=== PATIENT | female | born 1950 | race Caucasian/White ===

== ENCOUNTER → 2023-06-15 10:28 | Outpatient (REF) | payer MEDICARE, OTHER, SELFPAY ==
[2023-06-15 11:14] LABS: % Basophils 0.6 % (0-2); % Eosinophils 3.4 % (0-6); % Immature Granulocytes 1.2 % (0-0.5); % Monocytes 9.9 % (1.7-9.3); % Neutrophils 54.9 % (42.2-75.2); Absolute Eosinophils 0.2 10^3/uL (0-0.7); Absolute Immature Granulocytes 0.1 10^3/uL (0-0.05); Absolute Monocytes 0.7 10^3/uL (0.1-0.6); Absolute Neutrophils 3.7 10^3/uL (1.4-6.5); Hematocrit 41.6 % (37.0-47.0); Hemoglobin 13.9 g/dL (12.0-16.0); Mean Corp Hgb Conc. 33.4 g/dL (33.0-37.0); Mean Corpuscular Volume 95.6 fL (81.0-99.0); Mean Platelet Volume 9.2 fL (7.4-10.4); Nucleated Red Blood Cells % 0 %; Platelet Count 212 10^3/uL (130-400); Red Blood Cell Count 4.35 10^6/uL (4.20-5.40); Red Cell Dist. Width 12.9 % (11.5-14.5); White Blood Cell Count 6.8 10^3/uL (4.8-10.8)
[2023-06-15 12:13] LABS: Glycohemoglobin (HgbA1c) 7.1 % (4.0-5.6)
[2023-06-15 12:14] LABS: ALT (SGPT) 24 U/L (0-35); AST (SGOT) 37 U/L (14-36); Albumin 4.3 g/dl (3.5-5.0); Alkaline Phosphatase 114 U/L (38-126); Blood Urea Nitrogen 20 mg/dl (7-17); Calcium 9.6 mg/dl (8.4-10.2); Carbon Dioxide 28 mmol/L (22-30); Chloride 102 mmol/L (98-107); Glucose 98 mg/dl (70-99); HDL Cholesterol 55 mg/dl; LDL Cholesterol, Calculated 45 mg/dl; Potassium 4.5 mmol/L (3.5-5.1); Sodium 135 mmol/L (135-145); Total Bilirubin 0.7 mg/dl (0.2-1.3); Total Cholesterol 140 mg/dl (50-199); Total Protein 7.2 g/dl (6.3-8.2); Triglyceride 202 mg/dl (10-149); Very Low Density Lipoprotein 40 mg/dl (0-30); eGFR > 60.00
== END ==
LOC: REG 10:28
PROVIDERS: ATTENDING PHYSICIAN Physician Assistant; FAMILY PHYSICIAN Family Medicine
DX: E11.65 Type 2 diabetes mellitus with hyperglycemia (principal)
CPT/HCPCS: 36415; 80053; 80061; 83036; 85025

== ENCOUNTER → 2023-10-10 08:36 | Outpatient (REF) | payer MEDICARE, OTHER, SELFPAY ==
[2023-10-10 09:21] LABS: % Basophils 0.4 % (0-2); % Eosinophils 2.6 % (0-6); % Immature Granulocytes 0.6 % (0-0.5); % Lymphocytes 26.3 % (20.5-51.1); % Monocytes 7.2 % (1.7-9.3); % Neutrophils 62.9 % (42.2-75.2); Absolute Eosinophils 0.2 10^3/uL (0-0.7); Absolute Immature Granulocytes 0.1 10^3/uL (0-0.05); Absolute Lymphocytes 2.1 10^3/uL (1.2-3.4); Absolute Monocytes 0.6 10^3/uL (0.1-0.6); Absolute Neutrophils 5.1 10^3/uL (1.4-6.5); Hematocrit 44.1 % (37.0-47.0); Mean Corpuscular Hgb 31.3 pg (27.0-31.0); Mean Corpuscular Volume 91.9 fL (81.0-99.0); Mean Platelet Volume 9.2 fL (7.4-10.4); Nucleated Red Blood Cells % 0 %; Platelet Count 222 10^3/uL (130-400); Red Cell Dist. Width 13.6 % (11.5-14.5)
[2023-10-10 09:42] LABS: Glycohemoglobin (HgbA1c) 6.8 % (4.0-5.6)
[2023-10-10 09:51] LABS: ALT (SGPT) 27 U/L (0-35); AST (SGOT) 30 U/L (14-36); Albumin 4.3 g/dl (3.5-5.0); Alkaline Phosphatase 104 U/L (38-126); Blood Urea Nitrogen 20 mg/dl (7-17); Calcium 9.7 mg/dl (8.4-10.2); Carbon Dioxide 25 mmol/L (22-30); Chloride 101 mmol/L (98-107); Glucose 105 mg/dl (70-99); HDL Cholesterol 66 mg/dl; LDL Cholesterol, Calculated 64 mg/dl; Potassium 4.5 mmol/L (3.5-5.1); Sodium 139 mmol/L (135-145); Total Bilirubin 0.7 mg/dl (0.2-1.3); Total Cholesterol 159 mg/dl (50-199); Total Protein 7.3 g/dl (6.3-8.2); Triglyceride 146 mg/dl (10-149); Very Low Density Lipoprotein 29 mg/dl (0-30); eGFR > 60.00
== END ==
LOC: REG 08:36
PROVIDERS: ATTENDING PHYSICIAN Physician Assistant; FAMILY PHYSICIAN Family Medicine
DX: E11.65 Type 2 diabetes mellitus with hyperglycemia (principal)
CPT/HCPCS: 36415; 80053; 80061; 83036; 85025

== ENCOUNTER → 2023-10-31 12:04 | Outpatient (REF) | payer MEDICARE, OTHER, SELFPAY | LOC: RAD 12:04 | PROVIDERS: ATTENDING PHYSICIAN Family Medicine | DX: R05.1 Acute cough (principal); R06.2 Wheezing | CPT/HCPCS: 71046 ==

== ENCOUNTER 2024-02-08 13:17 | Emergency (ER) | payer MEDICARE, OTHER, SELFPAY ==
[2024-02-08 13:20] VITALS: BP 179/89
--- NOTE | 2024-02-08 13:20 | ED.GENMED ---
ED Provider Triage
<Melly Myers PA-C - Last Filed: 02/08/24 17:21>
-
Patient seen by provider in Triage?: Seen in Triage
Attestation: A medical screening examination has been initiated by a qualified medical provider. Based on the assessment performed at this time, it has been determined that an emergent medical condition may exist and the patient has been informed
that further medical evaluation and possible additional diagnostic testing may be needed.
HPI: 73yoF here with SOB x 1 week. Also feels like her glands are swollen. Sent here by PCP.
GENERAL: Alert , in no apparent distress
EYE: No visual abnormalities.
NECK: Trachea midline
ENT: No visible abnormalities.
LUNGS: No acute respiratory distress
NEUROLOGICAL: Alert and oriented
SKIN: Skin intact. No visible changes.
MUSCULOSKELETAL: Moving extremities normally
PSYCH: Normal and appropriate interaction.
This is a medical evaluation conducted in person to initiate diagnostic evaluation and provide initial therapeutics. Please see further documentation by the treating clinician.
Oxygen saturation 96% in triage. Cardiac labs, EKG, and CXR ordered.
History of Present Illness
<Melly Myers PA-C - Last Filed: 02/08/24 17:21>
General
Chief Complaint: Breathing Problem
Time Seen by Provider: 02/08/24 15:52
<Bailee Clinton NP - Last Filed: 02/08/24 23:20>
General
Source: patient
Exam Limitations: none
Nursing documentation reviewed up to this point in time: agreed with
History of Present Illness
History of Present Illness:
Patient to ED with complaint of SOB, sensation of throat swlling. Symptoms started 1 week ago. Denies fever/chills, recent illness. Sent to ED by PCP for eval. Denies any cp/pressure. NO cough
Past History
<Melly Myers PA-C - Last Filed: 02/08/24 17:21>
Past History
ED Past Medical History: HTN, Hypercholesterolemia, NIDDM, Psychiatric (Anxiety/depression) and Other (Is post recent knee replacement, hypertension, diabetes)
ED Past Surgical History: Cholecystectomy, Gynecological, Orthopedic and Other (Hernia repair)
Social History
Tobacco: Non-smoker
Alcohol: None
Drug: None
Personal:
Living: with family
Employment: Employed
Family History
Family History: Diabetes
Phy Exam
<Bailee Clinton NP - Last Filed: 02/08/24 23:20>
General Physical Exam
General Presentation: mild distress
General age: appears stated age
General Skin: warm and dry
General Habitus: normal
General Mental: alert
ENT Exam
ENT Exam: EOMI, pharynx normal, normocephalic and lymphnodes (enlarged firm right cervical node)
Cardiovascular Exam
Cardiovascular Exam: regular rate/rhythm and no edema
Pulmonary Exam
Pulmonary Exam: lungs clear, no respiratory distress, chest non tender and no stridor
Gastrointestinal Exam
Gastrointestinal Exam: non tender and soft
Musculoskeletal Exam
Musculoskeletal Exam: full ROM and neuro vasc intact
Skin Exam
Skin Exam: normal color, warm/dry and no rash
Psychiatric Exam
Psychiatric Exam: normal mood/affect
Scores
<Bailee Clinton NP - Last Filed: 02/08/24 23:20>
Heart Failure Risk
Heart Failure Risk Score: Not Applicable
Course
<Melly Myers PA-C - Last Filed: 02/08/24 17:21>
Orders/Labs/Results
Orders:
Orders
02/08/24 13:24
Electrocardiogram (*1) Urgent
Reason for Study: Shortness of Breath
EKG- Treatment ONCE
CR Chest - 2 Views Urgent
Comment:
Reason For Exam: SOB
02/08/24 13:33
Complete Blood Count/With Diff Urgent
Comprehensive Metabolic Panel Urgent
NT-proBNP Urgent
Troponin I Urgent
02/08/24 16:[address]
Neck [address] Contrast [address] [CT Neck With Iv Contrast] Urgent
Comment:
Reason For Exam: throat swelling, difficulty swallowing
02/08/24 16:04
Dexamethasone Pf [Decadron] 10 mg PO NOW STA
02/08/24 17:46
Amoxicillin 875 mg/Clav 125 mg [Augmentin 875 mg/125 mg] 1 tablet PO NOW STA
02/08/24 18:00
Fluconazole [Diflucan] 150 mg PO NOW STA
02/08/24 18:39
Rapid Strep Group A Urgent
KYLE Source: Throat/Pharynx
Specimen Description:
Date Specimen was Collected: 02/08/24
Time Specimen was Collected: 18:38
Abnormal Lab Results
02/08/24
13:33
MCH 31.4 H pg
(27.0-31.0)
Absolute Monos (auto) 0.7 H 10^3/uL
(0.1-0.6)
Immature Gran % 0.6 H %
(0-0.5)
Monocytes % 9.6 H %
(1.7-9.3)
Glucose 143 H mg/dl
(70-99)
AST 46 H U/L
(14-36)
02/08/24 13:33
02/08/24 13:33
Vital Signs
Initial and Last Documented VS:
Initial Vital Signs
Temp Pulse Resp BP Pulse Ox
98.5 F 63 20 179/89 96
02/08/24 13:20 02/08/24 13:20 02/08/24 13:20 02/08/24 13:20 02/08/24 13:20
Last Documented Vital Signs
Temp Pulse Resp BP Pulse Ox
98.5 F 55 17 138/84 96
02/08/24 13:20 02/08/24 18:00 02/08/24 18:00 02/08/24 16:13 02/08/24 16:27
<Bailee Clinton NP - Last Filed: 02/08/24 23:20>
Orders/Labs/Results
Orders:
Orders
02/08/24 13:24
Electrocardiogram (*1) Urgent
Reason for Study: Shortness of Breath
EKG- Treatment ONCE
CR Chest - 2 Views Urgent
Comment:
Reason For Exam: SOB
02/08/24 13:33
Complete Blood Count/With Diff Urgent
Comprehensive Metabolic Panel Urgent
NT-proBNP Urgent
Troponin I Urgent
02/08/24 16:01
Neck [address] Contrast CT [CT Neck With Iv Contrast] Urgent
Comment:
Reason For Exam: throat swelling, difficulty swallowing
02/08/24 16:04
Dexamethasone Pf [Decadron] 10 mg PO NOW STA
02/08/24 17:46
Amoxicillin 875 mg/Clav 125 mg [Augmentin 875 mg/125 mg] 1 tablet PO NOW STA
02/08/24 18:00
Fluconazole [Diflucan] 150 mg PO NOW STA
02/08/24 18:39
Rapid Strep Group A Urgent
KYLE Source: Throat/Pharynx
Specimen Description:
Date Specimen was Collected: 02/08/24
Time Specimen was Collected: 18:38
Abnormal Lab Results
02/08/24
13:33
MCH 31.4 H pg
(27.0-31.0)
Absolute Monos (auto) 0.7 H 10^3/uL
(0.1-0.6)
Immature Gran % 0.6 H %
(0-0.5)
Monocytes % 9.6 H %
(1.7-9.3)
Glucose 143 H mg/dl
(70-99)
AST 46 H U/L
(14-36)
02/08/24 13:33
02/08/24 13:33
Vital Signs
Initial and Last Documented VS:
Initial Vital Signs
Temp Pulse Resp BP Pulse Ox
98.5 F 63 20 179/89 96
02/08/24 13:20 02/08/24 13:20 02/08/24 13:20 02/08/24 13:20 02/08/24 13:20
Last Documented Vital Signs
Temp Pulse Resp BP Pulse Ox
98.5 F 55 17 138/84 96
02/08/24 13:20 02/08/24 18:00 02/08/24 18:00 02/08/24 16:13 02/08/24 16:27
<Shahbaz Chan, DO - Last Filed: 02/08/24 17:45>
Orders/Labs/Results
Orders:
Orders
02/08/24 13:24
Electrocardiogram (*1) Urgent
Reason for Study: Shortness of Breath
EKG- Treatment ONCE
CR Chest - 2 Views Urgent
Comment:
Reason For Exam: SOB
02/08/24 13:33
Complete Blood Count/With Diff Urgent
Comprehensive Metabolic Panel Urgent
NT-proBNP Urgent
Troponin I Urgent
02/08/24 16:01
Neck [address] Contrast CT [CT Neck With Iv Contrast] Urgent
Comment:
Reason For Exam: throat swelling, difficulty swallowing
02/08/24 16:04
Dexamethasone Pf [Decadron] 10 mg PO NOW STA
02/08/24 17:46
Amoxicillin 875 mg/Clav 125 mg [Augmentin 875 mg/125 mg] 1 tablet PO NOW STA
02/08/24 18:00
Fluconazole [Diflucan] 150 mg PO NOW STA
02/08/24 18:39
Rapid Strep Group A Urgent
KYLE Source: Throat/Pharynx
Specimen Description:
Date Specimen was Collected: 02/08/24
Time Specimen was Collected: 18:38
Abnormal Lab Results
02/08/24
13:33
MCH 31.4 H pg
(27.0-31.0)
Absolute Monos (auto) 0.7 H 10^3/uL
(0.1-0.6)
Immature Gran % 0.6 H %
(0-0.5)
Monocytes % 9.6 H %
(1.7-9.3)
Glucose 143 H mg/dl
(70-99)
AST 46 H U/L
(14-36)
02/08/24 13:33
02/08/24 13:33
Vital Signs
Initial and Last Documented VS:
Initial Vital Signs
Temp Pulse Resp BP Pulse Ox
98.5 F 63 20 179/89 96
02/08/24 13:20 02/08/24 13:20 02/08/24 13:20 02/08/24 13:20 02/08/24 13:20
Last Documented Vital Signs
Temp Pulse Resp BP Pulse Ox
98.5 F 55 17 138/84 96
02/08/24 13:20 02/08/24 18:00 02/08/24 18:00 02/08/24 16:13 02/08/24 16:27
Harveylt;Bailee Clinton NP - Last Filed: 02/08/24 23:20>
MDM/Problems Addressed
Differential Diagnosis Includes:
Patient to ED wtih complaint of sensation of swelling her throat. Denies fever/chills, pain. States she was seen by ENT a few weeks ago with fullness to ears. Tube placed in right ear. Now comlaining of swelling to neck. CT confirms bilateral
tonsillitis, narrowing or oropharygeal airway. Dr. Keller notified via tiger text. Plan to start antibiotic in ED, continue with oral steroid and discharge home. SHe will be seen in ENT office in AM. Patient remains awake and alert, afebrile.
LCTA, no stridor. Handling secretions well. SHe was given instructions on s/s to return to ED and she is agreeable to plan.
<Bailee Clinton NP - Last Filed: 02/08/24 23:20>
*Critical Care Note
Total Time (30-74mins, 75-104mins- exclusive of procedures): Not Applicable
ED Attending Note
<Melly Myers PA-C - Last Filed: 02/08/24 17:21>
-
Portions of this chart may have been created with voice recognition software.� Occasional wrong word or��sound alike� substitutions may have occurred due to the inherent limitations of voice recognition software.
<Shahbaz Chan DO - Last Filed: 02/08/24 17:45>
ED Attending Note
Patient seen and examined by attending physician: Yes
I performed the substantive portion of visit, reviewed & personally made and approve the management plan that is documented in note by myself or ANKIT.: Yes
ED Attending Note:
Seen with [employer] examined independently bilateral sore throat from swallowing recent mandibular node underwent what sounds like tympanic tube from Dr. Casarez in a few weeks ago CT noted no stridor will discharge on steroids and Amoxil follow-up ENT or
PCP
Discharge Plan
Departure
Patient Disposition: Home (Routine Discharge)
Date of Disposition: 02/08/24
Time of Disposition: 17:47
Patient with high blood pressure during this ER visit?: No
Condition: Good
Covid-19: Not Applicable
Discharge Problem:
Acute tonsillitis
Instructions: Sore throat in adults
Prescriptions:
New
amoxicillin-pot clavulanate 875-125 mg tablet
1 tab PO BID Qty: 19 0RF
prednisone 10 mg Tablet
See Rx Instructions .ROUTE .COMPLEX Qty: 30 0RF
Rx Instructions:
Take By Mouth:
40 mg daily x3 days, 30 mg daily x3 days,
20 mg daily x3 days, 10 mg daily x3 days.
No Action
lidocaine 1 PATCH adhesive patch,medicated
1 patch topical Q12H Qty: 0
Patient Comments:
applies to b/l feet for neuropathy.
metoprolol succinate 50 MG tablet extended release 24 hr
50 mg PO DAILY
Levemir FlexTouch U100 Insulin 300 UNIT/3 ML insulin pen
50 unit SC HS
ascorbic acid (vitamin C) 500 MG capsule
500 mg PO DAILY
Zinc Chelate 100 MG tablet
100 mg PO DAILY
Vitamin B12
1 tab PO DAILY
Vitamin D3:
2,000 units PO DAILY
[id number]-jjlghqfumautd-kbvi 1 TAB tablet
1 tab PO Q4HPRN PRN (Reason: headache)
glipizide 5 MG tablet extended release 24hr
10 mg PO TID
acetaminophen 325 MG tablet
650 mg PO BIDPRN PRN (Reason: pain)
amlodipine 5 MG tablet
5 mg PO DAILY
Entresto 1 TAB tablet
1 tab PO BID
multivitamin Tablet
1 tab PO DAILY
alprazolam 0.5 mg Tablet
0.5 mg PO PRN PRN (Reason: anxiety)
oxycodone-acetaminophen 10-325 mg Tablet
1 tab PO HSPRN PRN (Reason: pain)
omeprazole magnesium [Prilosec OTC] 20 mg Tablet,Delayed Release (Dr/Ec)
40 mg PO DAILY
pregabalin [Lyrica] 100 mg Capsule
100 mg PO TID
amoxicillin-pot clavulanate 875-125 mg tablet
1 tab PO BID Qty: 19 0RF
Referrals:
Dennis Keller MD [Active] - Tomorrow
Joanna Bal MD [Family Provider] -
Interventions
Interventions:
*Risk Screen - Suicide Last Done: 02/08/24 13:24
*General Assessment Last Done: 02/08/24 13:24
*Neglect/Abuse Screening Last Done: 02/08/24 13:24
ED- Fall Risk Assessment Last Done: 02/08/24 16:27
*ED COVID-19 Vaccine History Last Done: 02/08/24 13:24
*Nursing Disposition Last Done: 02/08/24 18:18
ED- Cardiac Assessment Last Done: 02/08/24 16:27
ED- Pulmonary Assessment Last Done: 02/08/24 16:27
Discharge Date and Time
Discharge Date/Time: 02/08/24 18:19
Print Language: CROATIAN
[2024-02-08 13:56] LABS: % Basophils 0.6 % (0-2); % Eosinophils 3.5 % (0-6); % Immature Granulocytes 0.6 % (0-0.5); % Lymphocytes 31.6 % (20.5-51.1); % Monocytes 9.6 % (1.7-9.3); % Neutrophils 54.1 % (42.2-75.2); Absolute Eosinophils 0.2 10^3/uL (0-0.7); Absolute Lymphocytes 2.1 10^3/uL (1.2-3.4); Absolute Monocytes 0.7 10^3/uL (0.1-0.6); Absolute Neutrophils 3.7 10^3/uL (1.4-6.5); Hematocrit 40.4 % (37.0-47.0); Hemoglobin 13.8 g/dL (12.0-16.0); Mean Corp Hgb Conc. 34.2 g/dL (33.0-37.0); Mean Corpuscular Hgb 31.4 pg (27.0-31.0); Mean Platelet Volume 9.1 fL (7.4-10.4); Nucleated Red Blood Cells % 0 %; Platelet Count 202 10^3/uL (130-400); Red Blood Cell Count 4.39 10^6/uL (4.20-5.40); Red Cell Dist. Width 12.9 % (11.5-14.5); White Blood Cell Count 6.8 10^3/uL (4.8-10.8)
[2024-02-08 14:05] LABS: ALT (SGPT) 35 U/L (0-35); AST (SGOT) 46 U/L (14-36); Albumin 4.1 g/dl (3.5-5.0); Alkaline Phosphatase 94 U/L (38-126); Blood Urea Nitrogen 15 mg/dl (7-17); Calcium 9.4 mg/dl (8.4-10.2); Carbon Dioxide 28 mmol/L (22-30); Chloride 101 mmol/L (98-107); Glucose 143 mg/dl (70-99); Potassium 3.9 mmol/L (3.5-5.1); Sodium 139 mmol/L (135-145); Total Bilirubin 0.4 mg/dl (0.2-1.3); Total Protein 6.6 g/dl (6.3-8.2); eGFR > 60.00
[2024-02-08 14:17] LABS: NT-proBNP 884 pg/ml; Troponin I 0.013 ng/ml
[2024-02-08 16:13] VITALS: BP 138/84
[2024-02-08 16:26] VITALS: BMI 43.7
[2024-02-08] MEDS: DECADRON 10 MG PO (16:31)
[2024-02-08] MEDS: AUGMENTIN 875 MG/125 MG 1 TABLET PO (17:55)
[2024-02-08] MEDS: DIFLUCAN 150 MG PO (18:12)
== END 2024-02-08 18:19 | disposition home or self-care (01) ==
LOC: EMR 13:17
PROVIDERS: Physician Assistant; EMERGENCY PHYSICIAN Emergency Medicine; FAMILY PHYSICIAN Family Medicine
DX: J03.90 Acute tonsillitis, unspecified (principal)
CPT/HCPCS: 99285; 70491; 71046; 80053; 83880; 84484; 85025; 87070; 87880; 93005; Q9967

== ENCOUNTER → 2024-02-10 10:02 | Outpatient (REF) | payer MEDICARE, OTHER, SELFPAY | LOC: RAD 10:02 | PROVIDERS: ATTENDING PHYSICIAN Specialist; FAMILY PHYSICIAN Family Medicine | DX: M25.512 Pain in left shoulder (principal) | CPT/HCPCS: 73200 ==

== ENCOUNTER → 2024-02-13 09:38 | Outpatient (REF) | payer MEDICARE, OTHER, SELFPAY ==
[2024-02-13 11:23] LABS: % Basophils 0.2 % (0-2); % Eosinophils 1.9 % (0-6); % Immature Granulocytes 1.2 % (0-0.5); % Lymphocytes 33.2 % (20.5-51.1); % Monocytes 10.2 % (1.7-9.3); % Neutrophils 53.3 % (42.2-75.2); Absolute Eosinophils 0.2 10^3/uL (0-0.7); Absolute Immature Granulocytes 0.1 10^3/uL (0-0.05); Absolute Lymphocytes 3.3 10^3/uL (1.2-3.4); Absolute Neutrophils 5.3 10^3/uL (1.4-6.5); Hematocrit 43.9 % (37.0-47.0); Mean Corp Hgb Conc. 34.2 g/dL (33.0-37.0); Mean Corpuscular Hgb 31.7 pg (27.0-31.0); Mean Corpuscular Volume 92.8 fL (81.0-99.0); Mean Platelet Volume 9.5 fL (7.4-10.4); Nucleated Red Blood Cells % 0 %; Platelet Count 234 10^3/uL (130-400); Red Blood Cell Count 4.73 10^6/uL (4.20-5.40); Red Cell Dist. Width 12.9 % (11.5-14.5)
[2024-02-13 12:02] LABS: ALT (SGPT) 41 U/L (0-35); AST (SGOT) 37 U/L (14-36); Albumin 4.4 g/dl (3.5-5.0); Alkaline Phosphatase 102 U/L (38-126); Blood Urea Nitrogen 21 mg/dl (7-17); Calcium 9.7 mg/dl (8.4-10.2); Carbon Dioxide 29 mmol/L (22-30); Chloride 97 mmol/L (98-107); Glucose 113 mg/dl (70-99); HDL Cholesterol 81 mg/dl; LDL Cholesterol, Calculated 30 mg/dl; Sodium 138 mmol/L (135-145); Total Bilirubin 0.8 mg/dl (0.2-1.3); Total Cholesterol 141 mg/dl (50-199); Total Protein 6.9 g/dl (6.3-8.2); Triglyceride 152 mg/dl (10-149); Uric Acid 4.2 mg/dl (2.5-6.2); Very Low Density Lipoprotein 30 mg/dl (0-30); eGFR > 60.00
[2024-02-14 09:43] LABS: Glycohemoglobin (HgbA1c) 6.8 % (4.0-5.6)
== END ==
LOC: REG 09:38
PROVIDERS: ATTENDING PHYSICIAN Physician Assistant; FAMILY PHYSICIAN Family Medicine; REFERRING PHYSICIAN Urology
DX: Z85.528 Personal history of other malignant neoplasm of kidney (principal); M10.072 Idiopathic gout, left ankle and foot; E11.65 Type 2 diabetes mellitus with hyperglycemia
CPT/HCPCS: 36415; 80053; 80061; 83036; 84550; 85025

== ENCOUNTER → 2024-03-04 09:22 | Outpatient (REF) | payer MEDICARE, OTHER, SELFPAY | LOC: RAD 09:22 | PROVIDERS: ATTENDING PHYSICIAN Urology; FAMILY PHYSICIAN Family Medicine | DX: Z85.528 Personal history of other malignant neoplasm of kidney (principal) | CPT/HCPCS: 71046 ==

== ENCOUNTER → 2024-03-18 10:59 | Outpatient (REF) | payer MEDICARE, OTHER, SELFPAY | LOC: WDC 10:59 | PROVIDERS: ATTENDING PHYSICIAN Family Medicine | DX: Z12.31 Encounter for screening mammogram for malignant neoplasm of breast (principal) | CPT/HCPCS: 77063; 77067 ==

== ENCOUNTER → 2024-04-02 12:39 | Outpatient (REF) | payer MEDICARE, OTHER, SELFPAY ==
--- NOTE | 2024-04-02 13:52 | CARDSERVLU ---
Echocardiogram with [facility] completed after protocol screening completed. Allergies verified.
Patent IV site: __new start 1st attempt RAC 22P___
IV site flushed with 0.9% NaCl pre and post administration.
Diluted bolus method utilized to enhance visualization of ventricular varela.
Total volume given: _4.0___ mL
site dcd at completion of test
Patient tolerated all procedures well without complications.
== END ==
LOC: RCS 12:39
PROVIDERS: ATTENDING PHYSICIAN Internal Medicine Cardiovascular Disease; FAMILY PHYSICIAN Family Medicine
DX: I10 Essential (primary) hypertension (principal); I42.0 Dilated cardiomyopathy; I50.32 Chronic diastolic (congestive) heart failure
CPT/HCPCS: 93306; Q9950

== ENCOUNTER 2024-04-09 22:18 | Inpatient (IN) | payer MEDICARE, OTHER, SELFPAY ==
[2024-04-09 14:47] VITALS: BP 122/83
[2024-04-09 15:09] LABS: % Basophils 0.4 % (0-2); % Eosinophils 4.1 % (0-6); % Immature Granulocytes 0.4 % (0-0.5); % Lymphocytes 29.4 % (20.5-51.1); % Monocytes 11.5 % (1.7-9.3); % Neutrophils 54.2 % (42.2-75.2); Absolute Eosinophils 0.3 10^3/uL (0-0.7); Absolute Monocytes 0.8 10^3/uL (0.1-0.6); Absolute Neutrophils 3.7 10^3/uL (1.4-6.5); Hematocrit 42.1 % (37.0-47.0); Hemoglobin 14.3 g/dL (12.0-16.0); Mean Corpuscular Hgb 33.1 pg (27.0-31.0); Mean Corpuscular Volume 97.5 fL (81.0-99.0); Mean Platelet Volume 9.1 fL (7.4-10.4); Nucleated Red Blood Cells % 0 %; Platelet Count 187 10^3/uL (130-400); Red Blood Cell Count 4.32 10^6/uL (4.20-5.40); Red Cell Dist. Width 13.1 % (11.5-14.5); White Blood Cell Count 6.8 10^3/uL (4.8-10.8)
[2024-04-09 15:26] LABS: Blood Urea Nitrogen 17 mg/dl (7-17); Glucose 147 mg/dl (70-99); Sodium 138 mmol/L (135-145); eGFR > 60.00
[2024-04-09 15:27] LABS: ALT (SGPT) 28 U/L (0-35); AST (SGOT) 37 U/L (14-36); Albumin 4.3 g/dl (3.5-5.0); Alkaline Phosphatase 100 U/L (38-126); Calcium 9.4 mg/dl (8.4-10.2); Carbon Dioxide 28 mmol/L (22-30); Chloride 102 mmol/L (98-107); Potassium 4.3 mmol/L (3.5-5.1); Total Bilirubin 0.6 mg/dl (0.2-1.3); Total Protein 6.8 g/dl (6.3-8.2)
[2024-04-09 15:31] LABS: NT-proBNP 584 pg/ml
--- NOTE | 2024-04-09 17:47 | ED.GENMED ---
History of Present Illness
General
Chief Complaint: Breathing Problem
Time Seen by Provider: 04/09/24 17:45
History of Present Illness
History of Present Illness:
Patient presents to the emergency department with shortness of breath. Notes that symptoms have been worsening over the past couple of weeks. Notes severe nocturnal dyspnea and feeling like she is choking in her throat. Endorses some lower
extremity swelling. Endorses chronic left shoulder pain which she has been seeing an orthopedist for. Pain radiates down to the left hand. Patient had a recent echo cardiogram done that showed worsening of her LV ejection fraction which is now 35
to 40%. There is no valvular disease.
Past History
Past History
ED Past Medical History: HTN, Hypercholesterolemia, NIDDM, Psychiatric (Anxiety/depression) and Other (Is post recent knee replacement, hypertension, diabetes)
ED Past Surgical History: Cholecystectomy, Gynecological, Orthopedic and Other (Hernia repair)
Social History
Tobacco: Non-smoker
Alcohol: None
Drug: None
Personal:
Living: with family
Employment: Employed
Family History
Family History: Diabetes
Phy Exam
Physical Exam
Physical Exam:
GENERAL APPEARANCE: NAD, well developed/ well nourished
EYES lids/conjunctiva normal
EARS/NOSE/THROAT Mucous membranes moist, uvula midline without oral pharyngeal erythema, exudate or swelling
HEAD/NECK normocephalic atraumatic, neck is supple. Unable to assess JVD secondary to habitus
RESPIRATORY mild increased work of breathing speaks in short sentences. Diminished breath sounds at the bases bilaterally. No wheezing.
CARDIAC Regular rate and rhythm, 1+ pitting edema to bilateral lower extremities
ABDOMINAL Soft, ND/NT. No pulsatile masses on exam, rebound tenderness, Gibbs sign or pain over Mcburney's point.
MUSCLES/EXTREMITIES No abnormal range of motion, no swelling.
SKIN Warm, pink and dry. No rashes
NEUROLOGICAL Speech is clear and appropriate. Normal level of consciousness. 5/5 strength in all extremities.
PSYCH Normal mood and affect. Judgement/competence is appropriate
Scores
Heart Failure Risk
Heart Failure Risk Score: Yes
History of Stroke or TIA: No
History of intubation for respiratory distress: No
Heart rate on ED arrival >/= 110: No
SaO2 <90% on arrival on room air: No
HR >/=110 during 3min walk test (or too ill to perform test): No
ECG has acute ischemic changes: No
Urea >/=12mmol/L (BUN 33.6mg/dL): No
Serum CO2>/=35mmol/L: No
Troponin I or T elevated to SD Level (0.4mg/dL): No
NT-proBNP >/=5,000ng/L (5,000pg/ml): No
HF Risk Score: 0
Admission Status: LOW RISK 2.8% Consider discharge to home with f/u visit to PCP/[employer] Super[employer]
Course
Orders/Labs/Results
Orders:
Orders
04/09/24 14:50
Electrocardiogram (*1) Urgent
Reason for Study: Shortness of Breath
EKG- Treatment ONCE
04/09/24 14:59
Complete Blood Count/With Diff Urgent
Comprehensive Metabolic Panel Urgent
NT-proBNP Urgent
Troponin I Urgent
Comment: ADD ON
04/09/24 17:56
CR Chest - 2 Views Urgent
Comment:
Reason For Exam: shortness of breath
04/09/24 18:00
Add On- LAB Urgent
Tests Added?: troponin
04/09/24 19:55
Furosemide [Lasix] 40 mg IV ONCE ONE
04/10/24 08:00
Lidocaine [Lidocaine 4% Patch] 1 patch TOPICAL DAILY
Apply Lidocaine patch(s) to:: L upper back
Abnormal Lab Results
04/09/24
14:59
MCH 33.1 H pg
(27.0-31.0)
Absolute Monos (auto) 0.8 H 10^3/uL
(0.1-0.6)
Monocytes % 11.5 H %
(1.7-9.3)
Glucose 147 H mg/dl
(70-99)
AST 37 H U/L
(14-36)
04/09/24 14:59
04/09/24 14:59
Vital Signs
Initial and Last Documented VS:
Initial Vital Signs
Temp Pulse Resp BP Pulse Ox
97.6 F 66 26 122/83 96
04/09/24 14:47 04/09/24 14:47 04/09/24 14:47 04/09/24 14:47 04/09/24 14:47
Last Documented Vital Signs
Temp Pulse Resp BP Pulse Ox
97.6 F 94 19 162/79 94
04/09/24 14:47 04/09/24 18:43 04/09/24 18:43 04/09/24 18:43 04/09/24 18:43
*Critical Care Note
Total Time (30-74mins, 75-104mins- exclusive of procedures): Not Applicable
ED Attending Note
ED Attending Note
ED Attending Note:
Patient presents with worsening dyspnea, neck fullness while sleeping, severe nocturnal dyspnea
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
she had an echo done 04/02 which is showing newly reduced LVEF now 35-40%
she has some lower extremity edema as well
she appears dyspneic but is saturating well on room air
It appears she is having new onset CHF. She is not on any diuretic as an outpatient
giving a dose of lasix 40mg IV now and will admit to hospitalist for further management
-
Portions of this chart may have been created with voice recognition software.� Occasional wrong word or��sound alike� substitutions may have occurred due to the inherent limitations of voice recognition software.
Discharge Plan
Departure
Prescriptions:
No Action
lidocaine 1 PATCH adhesive patch,medicated
1 patch topical Q12H Qty: 0
Patient Comments:
applies to b/l feet for neuropathy.
metoprolol succinate 50 MG tablet extended release 24 hr
50 mg PO DAILY
Levemir FlexTouch U100 Insulin 300 UNIT/3 ML insulin pen
50 unit SC HS
ascorbic acid (vitamin C) 500 MG capsule
500 mg PO DAILY
Zinc Chelate 100 MG tablet
100 mg PO DAILY
Vitamin B12
1 tab PO DAILY
Vitamin D3:
2,000 units PO DAILY
xfqnbrlhpp-abzfqsynndmtz-yewr 1 TAB tablet
1 tab PO Q4HPRN PRN (Reason: headache)
glipizide 5 MG tablet extended release 24hr
10 mg PO TID
acetaminophen 325 MG tablet
650 mg PO BIDPRN PRN (Reason: pain)
amlodipine 5 MG tablet
5 mg PO DAILY
Entresto 1 TAB tablet
1 tab PO BID
multivitamin Tablet
1 tab PO DAILY
alprazolam 0.5 mg Tablet
0.5 mg PO PRN PRN (Reason: anxiety)
oxycodone-acetaminophen 10-325 mg Tablet
1 tab PO HSPRN PRN (Reason: pain)
omeprazole magnesium [Prilosec OTC] 20 mg Tablet,Delayed Release (Dr/Ec)
40 mg PO DAILY
pregabalin [Lyrica] 100 mg Capsule
100 mg PO TID
amoxicillin-pot clavulanate 875-125 mg tablet
1 tab PO BID Qty: 19 0RF
amoxicillin-pot clavulanate 875-125 mg tablet
1 tab PO BID Qty: 19 0RF
prednisone 10 mg Tablet
See Rx Instructions .ROUTE .COMPLEX Qty: 30 0RF
Rx Instructions:
Take By Mouth:
40 mg daily x3 days, 30 mg daily x3 days,
20 mg daily x3 days, 10 mg daily x3 days.
Referrals:
Joanna Bal MD [Family Provider] -
Interventions
Interventions:
*Risk Screen - Suicide Last Done: 04/09/24 14:47
*General Assessment Last Done: 04/09/24 14:47
*Neglect/Abuse Screening Last Done: 04/09/24 14:47
ED- Fall Risk Assessment Last Done: 04/09/24 18:44
*ED COVID-19 Vaccine History Last Done: 04/09/24 14:47
ED- Cardiac Assessment Last Done: 04/09/24 18:44
ED- Pulmonary Assessment Last Done: 04/09/24 18:44
Discharge Date and Time
Print Language: [id number]
[2024-04-09 18:43] VITALS: BP 162/79
--- NOTE | 2024-04-09 20:15 | HPS.HSE ---
Addendum entered and electronically signed by Irma Boucher DO 04/10/24 00:20:
The patient was seen and examined. I have discussed the patient with Shakila, and agree with her history and physical, assessment and plan of care as per below with the following adjustments:
-the patient had a very engorged tick on her right flank, unknown period of time attached though extremely engorged, fitting the characteristics of a deer tick.
VSS/AF at this time, with some improvement in SOB post IV Lasix in ED, urinated several times
Lungs CTA b/l
unable to appreciated JVD due to large neck habitus
CV RRR, no m/r/g
No rash/no bulls eye lesion from where I removed the tick
Ext-LLE more edematous compared to right, and b/l venous stasis changes, b/l scars from knee replacements, left shoulder surgery scar
CHF exacerbation, new onset
-appreciate Cards consultation, will require CHF evaluation- discuss IP vs OP work-up pending clinical course
-cont IV Lasix BID for now
-monitor I/O
LLE edeme left side greater than right
-check US LLE r/o DVT
Possible Lyme Disease, acute on chronic b/l knee and LE arthritis could be due to Lyme's, tick was likely attached for a significant period of time due to engorgement
-will initiate Doxy/consider ID curbside
-check Lyme titer now and repeat as OP in 2 weeks
Original Note:
Family Physician
-
Family Physician: Joanna Bal
Chief Complaint
-
shortness of breath
History of Present Illness
Patient is a 73-year-old female with past medical history significant for hypertension, type 2 diabetes, chronic diastolic heart failure and depression who presented to [facility] ED for evaluation of shortness of breath with exertion. Patient
states yesterday when she went to Dr. Coats's office she had to stop 2x on walk in related to increased shortness of breath. Patient does mention she has noticed bilateral edema in feet and ankles recently. She denies any chest pain, palpitations,
diaphoresis or cough associated with shortness of breath. She denies any fever, chills, nausea, vomiting, constipation, diarrhea or urinary symptoms. Patient had echo done with cardiology 04/02/2024 that indicated HTN, DILATED CARDIOMYOPATHY; HT
FAILURE W/ RECOVERED EF. Follow up with cardiology to go over results is scheduled for 04/29/2024.
Medical History
Past Medical History
Past Medical History: Reports Other
Additional Past Medical History:
hypertension
type 2 diabetes
chronic diastolic heart failure
depression
osteoarthritis
Past Surgical History: Reports Other
Additional Past Surgical History:
tubal ligation
carpal tunnel release
ganglion cyst excision
bilateral partial nephrectomy
bilateral total knee
cholecystectomy
hysterectomy
bilateral total hip replacement
Social History
Tobacco: Non-smoker
Alcohol: None
Drug: None
Personal:
Living: Alone
Family History
Family History: Not pertinent
Allergies / Home Medications
Allergies reflects when Allergies were last updated in [employer].
Home Medications with original date entered in [employer]
Allergy/Medication List:
Allergies
Allergy/AdvReac Type Severity Reaction Status Date / Time
hydrochlorothiazide Allergy Unknown Unknown Verified 02/08/24 13:24
adhesive Allergy TAPE-RASH Verified 02/08/24 13:24
bupropion [From Wellbutrin] Allergy Tinnitus Verified 02/08/24 13:24
citalopram Allergy ' messed Verified 02/08/24 13:24
heart up '
lisinopril Allergy Mouth and Verified 02/08/24 13:24
throat
swelling
nitrofurantoin Allergy pt can't Verified 02/08/24 13:24
[From Macrodantin] remember
reaction
Sulfa (Sulfonamide Allergy Rash Verified 02/08/24 13:24
Antibiotics)
metformin AdvReac stomach Verified 02/08/24 13:24
pain and
diarrhea
Home Medications
metoprolol succinate 50 mg tablet,extended release 24 hr 50 mg PO DAILY Blood pressure 10/09/19
cholecalciferol (vitamin D3) 50 mcg (2,000 unit) tablet (Vitamin D3) 50 mcg PO DAILY Supplement ##0 08/20/20
cyanocobalamin (vitamin B-12) 1,000 mcg tablet 1,000 mcg PO DAILY Supplement ##0 08/20/20
amlodipine 5 mg tablet 5 mg PO DAILY Blood pressure 05/24/21
alprazolam 0.5 mg tablet 0.5 mg PO DAILYPRN PRN anxiety 12/11/21
atorvastatin 10 mg tablet 10 mg PO DAILY 04/09/24
desvenlafaxine succinate 25 mg tablet,extended release 24 hr 25 mg PO DAILY 04/09/24
gabapentin 600 mg tablet 600 mg PO QID 04/09/24
insulin glargine 100 unit/mL (3 mL) subcutaneous pen (Basaglar KwikPen U-100 Insulin) 65 unit SC HS 04/09/24
insulin lispro 100 unit/mL subcutaneous pen (Admelog SoloStar U-100 Insulin lispro) 20 unit SC AC 04/09/24
ketoconazole 2 % topical cream 1 applic topical DAILYPRN PRN rash 04/09/24
lidocaine 5 % topical patch 1 patch topical HSPRN PRN feet 04/09/24
lisinopril 20 mg tablet 20 mg PO DAILY 04/09/24
loperamide 2 mg capsule 2 mg PO QIDPRN PRN diarrhea 04/09/24
metoclopramide HCl 5 mg tablet 5 mg PO AC 04/09/24
omeprazole 40 mg capsule,delayed release 40 mg PO DAILY 04/09/24
semaglutide 0.25 mg or 0.5 mg (2 mg/3 mL) subcutaneous pen injector (Ozempic) 0.5 mg SC MO 04/09/24
therapeutic multivitamin 1 tab PO DAILY 04/09/24
Review of Systems
-
History Source: Patient
Constitutional: Reports No Symptoms
EENT: Reports No Symptoms
Respiratory: Reports Other (shortness of breath with exertion)
Cardiac: Reports No Symptoms
Abdomen/GI: Reports No Symptoms
: Reports No Symptoms
Musculoskeletal: Reports Edema (bilateral feet and ankles)
Skin: Reports No Symptoms
Neurological: Reports No Symptoms
Endocrine: Reports No Symptoms
Hematologic/Lymphatic: Reports No Symptoms
Psych: Reports No Symptoms
Physical Exam
Vital Signs
Vital Signs
Temp Pulse Resp BP Pulse Ox
97.6 F 94 19 162/79 94
04/09/24 14:47 04/09/24 18:43 04/09/24 18:43 04/09/24 18:43 04/09/24 18:43
Physical Exam
General: Well Developed, Well Nourished and Conversant
HEENT: NormoCephalic, Moist mucous membranes, Atraumatic, PERRLA, [place] Conjunctivae, Nose Appears Normal and Ears Appear Normal
Respiratory: Clear; No Wheezes, Rales, Rhonchi or Crackles
Cardiac: S1/S2 and Regular Rhythm; No Murmur or Rub
Breast: Deferred by me
GI: Soft, Non Tender and Normal Bowel Sounds; No Organomegaly
Rectal: Deferred by Provider
Genito-urinary: Deferred by me
Musculoskeletal: No Clubbing, No Cyanosis, Edema, Left Lower Extremity and Edema, Right Lower Extremity
Skin: Warm and IV/Catheter Site; No Rash
Neuro: Awake, Alert, AO x 3 and Nonfocal/grossly intact
Hematologic/Lymphatic: No Lymphadenopathy
Psych: Calm and Intact Judgment/Insight
Laboratory Results
-
04/09/24 14:59
04/09/24 14:59
Laboratory Results
Total Bilirubin 0.6 mg/dl (0.2-1.3) 04/09/24 14:59
AST 37 U/L (14-36) H 04/09/24 14:59
ALT 28 U/L (0-35) 04/09/24 14:59
Alkaline Phosphatase 100 U/L (38-126) 04/09/24 14:59
Troponin I Cancelled 04/09/24 17:56
Data Reviewed
-
Diagnostic Radiology: Report Reviewed by me (CXR: No acute cardiopulmonary process.)
Medical Tests (Nuc Med, Echo, EKG etc): Report Reviewed by me (ECHO: HTN, DILATED CARDIOMYOPATHY; HT FAILURE W/ RECOVERED EF; Left ventricle is mildly dilated. Mild to moderately reduced left ventricular systolic function. LVEF is estimated at
35-40%. No significant valvular disease. Compared to prior study of 06/23/2023 the LVEF is lower as it was estimate)
Lab Data: Labs Reviewed by me (BNP 584)
Impression/Plan
-
IMPRESSION/PLAN:
#acute on chronic diastolic heart failure
BNP 584
Echo (04/02/2024): Left ventricle is mildly dilated.
Mild to moderately reduced left ventricular systolic function.
LVEF is estimated at 35-40%.
No significant valvular disease.
Compared to prior study of 06/23/2023 the LVEF is lower as it was estimated at
50-55%..
- Admit to telemetry
- IV Lasix
- Daily weights
- Consult Cardiology
#hypertension
- continue amlodipine, lisinopril and metoprolol
#type 2 diabetes with neuropathy
- continue insulin glargine, insulin lispro and semaglutide
- continue gabapentin
- AccuChecks AC & HS
- SSI
#depression
- continue alprazolam PRN
- continue desvenlafaxine
#osteoarthritis
Code Status: Full Code
DVT Prophylaxis: Lovenox Sq
[2024-04-09] MEDS: LASIX 40 MG IV (20:29)
[2024-04-09] MEDS: XANAX 0.5 MG PO (20:37)
[2024-04-09] MEDS: LIDOCAINE 4% PATCH 1 PATCH TOPICAL (20:37)
[2024-04-09 21:00] VITALS: BP 173/157
--- NOTE | 2024-04-09 23:21 | PTCARENOTE ---
Addendum entered by Kanwal Mercedes RN 04/10/24 00:49:
updated RN- tic able to be disposed of. US ordered for possible DVT to LLE and STAT lyme titer ordered. Labs drawn and pending.
Original Note:
Pt arrived to 3W via stretcher and ambulated to bed. Assessment and admission complete. This RN listened to pt lungs and during assessment noticed tic latched on to pt R side of back. Pt. unaware of tic, states she hasn't been outside recently.
Internal medicine MD at bedside to assess pt and removed tic with alcohol wipes. Pt states it is sore where the tic was latched. Minimal redness surrounding area where tic had latched. Pt also complaining of pain and swelling to MD CHRIS ordering US
to check for DVT and lyme titer. Tic kept in specimen container and MD to let RN know if tic should be sent to lab. Pt oriented to unit and states no further needs at this time. Care ongoing.
[2024-04-10] VITALS (8 sets, daily range): BP systolic 131–168; BP diastolic 68–83; PULSE 63–65; O2SAT 95; BMI 45.4
[2024-04-10] MEDS: LANTUS 0.65 UNITS SC ×2 (00:04→21:36)
[2024-04-10] MEDS: NEURONTIN 600 MG PO ×5 (00:07→21:37)
[2024-04-10 00:12] LABS: Glucose - Point of Care 168 mg/dl (70-99)
[2024-04-10] MEDS: VIBRAMYCIN 100 MG PO ×3 (01:55→19:51)
[2024-04-10] MEDS: TYLENOL 650 MG PO ×2 (05:41→21:37)
[2024-04-10 07:20] LABS: Glucose - Point of Care 167 mg/dl (70-99)
[2024-04-10 07:27] LABS: Hematocrit 41.2 % (37.0-47.0); Hemoglobin 13.9 g/dL (12.0-16.0); Mean Corp Hgb Conc. 33.7 g/dL (33.0-37.0); Mean Corpuscular Hgb 32.8 pg (27.0-31.0); Mean Corpuscular Volume 97.2 fL (81.0-99.0); Mean Platelet Volume 9.2 fL (7.4-10.4); Platelet Count 183 10^3/uL (130-400); Red Blood Cell Count 4.24 10^6/uL (4.20-5.40); Red Cell Dist. Width 13.2 % (11.5-14.5); White Blood Cell Count 7.4 10^3/uL (4.8-10.8)
[2024-04-10] MEDS: PROTONIX 40 MG PO (08:01)
[2024-04-10] MEDS: LIDOCAINE 4% PATCH 1 PATCH TOPICAL (08:01)
[2024-04-10] MEDS: NORVASC 5 MG PO (08:01)
[2024-04-10] MEDS: PRISTIQ 25 MG PO (08:03)
[2024-04-10] MEDS: TOPROL XL 50 MG PO (08:03)
[2024-04-10] MEDS: VITAMIN D3 (cholecalciferol) 50 MCG PO (08:03)
[2024-04-10] MEDS: LIPITOR 10 MG PO (08:03)
[2024-04-10] MEDS: LASIX 20 MG IV ×2 (08:04→16:40)
[2024-04-10] MEDS: REGLAN 5 MG PO ×3 (08:04→16:38)
[2024-04-10] MEDS: NOVOLOG FLEXPEN 20 UNITS SC ×3 (08:06→16:38)
[2024-04-10] MEDS: NOVOLOG FLEXPEN-LOW RESISTANCE 1 UNITS SC (08:06)
--- NOTE | 2024-04-10 08:07 | CON.CAR ---
Addendum entered and electronically signed by Jairo Beard MD 04/10/24 11:39:
I saw and examined the patient.
The SQL REPORT DEVELOPER's note was reviewed and I agree with the note.
Comment: 73-year-old female known to Dr. Bob with a past medical history of heart failure with recovered EF, hypertension, type 2 diabetes, hyperlipidemia nonobstructive CAD presents for evaluation of ongoing shortness of breath. In review it
seems she has been evaluated for throat tightness and discomfort over the last couple of weeks. She describes this to me as a feeling of fullness in her throat when she lies down. She presents now with shortness of breath over the last several
weeks. On exam she is morbidly obese in no apparent distress with a regular rate and rhythm with a normal S1-S2, no murmurs rubs or gallops were appreciated. Lungs were clear to auscultation. Cannot discern her JVP due to body habitus. EKG shows
sinus rhythm with left anterior fascicular block and right bundle branch block. Echo shows EF back down to 35 to 40%. Overall, she is likely volume overloaded and feeling better already with some diuresis. Will continue diuresis. Will transition
her medications to GDMT as able. 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 Etiology is unclear, recommend PET/CT as an outpatient. For her hypertension, will stop amlodipine and lieu of GDMT. Continue her statin for
chronic hyperlipidemia.
Will follow-up.
Original Note:
Consultation
Consultation Request
Date/Time Consultation Requested: 04/09/2024 23:00
Date/Time Consultation Performed: 04/10/2024 09:00
Requesting Provider: ALYSIA Borges
Performing Provider: ALYSIA Lemus for Dr. Beard
Reason for Consultation: Acute on chronic heart failure
Medical History
-
Chief Complaint: Shortness of breath
History of Present Illness:
Ina Nieto is a 73-year-old female (known to Dr. Mix, her primary sdc teacher), with hypertension, nonobstructive coronary artery disease, type 2 diabetes, dyslipidemia, and dilated cardiomyopathy with a previously recovered EF now back down
to 35-40% who presented to the emergency department the chief complaint of shortness of breath. Her shortness of breath has been ongoing for several weeks. She endorses associated lower extremity swelling. She denies chest pain. She had a recent
tick bite, a Lyme titer is pending.
Past Medical History
Past Medical History: CAD (Nonobstructive), CHF, HTN, Hypercholesterolemia and NIDDM
Past Surgical History: Cholecystectomy, Gynecological and Orthopedic
Social History
Tobacco: Non-Smoker
Alcohol: None
Drug: None
Personal:
Employment: Retired
Family History
Family History: Reviewed & Not Pertinent
Allergies / Home Medications
Allergy/AdvReac Type Severity Reaction Status Date / Time
adhesive Allergy TAPE-RASH Verified 02/08/24 13:24
bupropion [From Wellbutrin] Allergy Tinnitus Verified 02/08/24 13:24
citalopram Allergy ' messed Verified 02/08/24 13:24
heart up '
hydrochlorothiazide Allergy Unknown Verified 04/09/24 22:59
lisinopril Allergy Mouth and Verified 02/08/24 13:24
throat
swelling
metformin Allergy stomach Verified 04/09/24 23:00
pain and
diarrhea
nitrofurantoin Allergy pt can't Verified 02/08/24 13:24
[From Macrodantin] remember
reaction
Sulfa (Sulfonamide Allergy Rash Verified 02/08/24 13:24
Antibiotics)
�Medication �Instructions �Recorded �Confirmed �Type
metoprolol succinate 50 mg 50 mg PO DAILY Blood pressure 10/09/19 04/09/24 History
tablet,extended release 24 hr
cholecalciferol (vitamin D3) 50 50 mcg PO DAILY Supplement ##0 08/20/20 04/09/24 History
mcg (2,000 unit) tablet (Vitamin
D3)
cyanocobalamin (vitamin B-12) 1,000 mcg PO DAILY Supplement ##0 08/20/20 04/09/24 History
1,000 mcg tablet
amlodipine 5 mg tablet 5 mg PO DAILY Blood pressure 05/24/21 04/09/24 History
alprazolam 0.5 mg tablet 0.5 mg PO DAILYPRN PRN anxiety 12/11/21 04/09/24 History
atorvastatin 10 mg tablet 10 mg PO DAILY 04/09/24 04/09/24 History
desvenlafaxine succinate 25 mg 25 mg PO DAILY 04/09/24 04/09/24 History
tablet,extended release 24 hr
gabapentin 600 mg tablet 600 mg PO QID 04/09/24 04/09/24 History
insulin glargine 100 unit/mL (3 65 unit SC HS 04/09/24 04/09/24 History
mL) subcutaneous pen (Basaglar
KwikPen U-100 Insulin)
insulin lispro 100 unit/mL 20 unit SC AC 04/09/24 04/09/24 History
subcutaneous pen (Admelog SoloStar
U-100 Insulin lispro)
ketoconazole 2 % topical cream 1 applic topical DAILYPRN PRN rash 04/09/24 04/09/24 History
lidocaine 5 % topical patch 1 patch topical HSPRN PRN feet 04/09/24 04/09/24 History
lisinopril 20 mg tablet 20 mg PO DAILY 04/09/24 04/09/24 History
loperamide 2 mg capsule 2 mg PO QIDPRN PRN diarrhea 04/09/24 04/09/24 History
metoclopramide HCl 5 mg tablet 5 mg PO AC 04/09/24 04/09/24 History
omeprazole 40 mg capsule,delayed 40 mg PO DAILY 04/09/24 04/09/24 History
release
semaglutide 0.25 mg or 0.5 mg (2 0.5 mg SC MO 04/09/24 04/09/24 History
mg/3 mL) subcutaneous pen injector
(Ozempic)
therapeutic multivitamin 1 tab PO DAILY 04/09/24 04/09/24 History
Review of Systems
-
History Source: Patient
Constitutional: Fatigue
EENT: No Symptoms
Respiratory: Trouble Breathing
Cardiac: No Symptoms
Abdomen/GI: No Symptoms
: No Symptoms
Musculoskeletal: Edema and Other (Pinched nerve left neck)
Skin: No Symptoms
Neurological: No Symptoms
Endocrine: No Symptoms
Hematologic/Lymphatic: No Symptoms
Physical Exam
Vital Signs
Temp Pulse Resp BP Pulse Ox
98.2 F 63 17 149/73 95
04/10/24 07:00 04/10/24 07:00 04/10/24 07:00 04/10/24 07:00 04/10/24 07:00
Lab Results
04/10/24 07:10
Troponin I Cancelled 04/09/24 17:56
Pps-Z-Zrmnttbhqed Pept 584 pg/ml 04/09/24 14:59
Physical Exam
General: Well Developed, Well Nourished, No Apparent Distress and Comfortable
HEENT: Normocephalic, Anicteric and Moist Mucous Membranes
Respiratory: Clear and Non Labored Respirations
Cardiac: S1/S2, Regular Rhythm and Peripheral Edema (Nonpitting bilateral lower extremity)
Breast: Deferred by me
GI: Soft, Non Tender, Non Distended and Normal Bowel Sounds
Rectal: Deferred by Provider
Genito-urinary: No Costovertebral Tender
Musculoskeletal: No Clubbing and No Cyanosis
Skin: Warm and Dry
Neuro: AO x 3
Hematologic/Lymphatic: No Lymphadenopathy
Psych: Calm
Impression / Plan
-
IMPRESSION/PLAN: 73F with hypertension, nonobstructive coronary artery disease, type 2 diabetes, dyslipidemia, and dilated cardiomyopathy with a previously recovered EF now back down to 35-40% who presented to the emergency department the chief
complaint of shortness of breath.
Primary sdc teacher: Dr Mix
Dilated cardiomyopathy (EF 35-40%), acute on chronic
-Possible viral etiology, Lyme titer pending
-Nonischemic by cardiac catheterization in 2020
-Stop amlodipine
-GDMT as tolerated
-Beta-pamela: Metoprolol succinate 50 mg daily
-ACEI/ARB/ARNI: Entresto was cost prohibitive in the past, case management to [place], continue lisinopril
-SGLT2: [place] management to [place]
-MRA: Start spironolactone 25 mg
-Diuresis with furosemide, this requires intensive monitoring
-Heart failure education, she does not weigh herself at home, she will start doing this
-Consider cardiac PET in the outpatient setting
Coronary artery disease, nonocclusive in mid LAD
Hypertension, stable, follows changes medical therapy
Dyslipidemia, continue atorvastatin
Type 2 diabetes mellitus, per primary service
Morbid obesity, BMI 45.4, she would benefit from weight loss, she is currently on GLP-1
DATA:
Transthoracic echocardiogram, 04/29/2024:
CONCLUSIONS
Left ventricle is mildly dilated.
Mild to moderately reduced left ventricular systolic function.
LVEF is estimated at 35-40%.
No significant valvular disease.
Compared to prior study of 06/23/2023 the LVEF is lower as it was estimated at
50-55%.
Data Reviewed
-
EKG: Report Reviewed by me (Sinus rhythm, left axis deviation, rate 69)
Labs: Labs Reviewed by me
Old Records: Reviewed
[2024-04-10] MEDS: ZESTRIL 20 MG PO (08:10)
[2024-04-10] MEDS: VITAMIN B-12 1000 MCG PO (08:10)
[2024-04-10 08:13] LABS: Blood Urea Nitrogen 17 mg/dl (7-17); Calcium 9.1 mg/dl (8.4-10.2); Carbon Dioxide 30 mmol/L (22-30); Chloride 98 mmol/L (98-107); Estimated Creatinine Clearance 95 ml/min; Glucose 170 mg/dl (70-99); HDL Cholesterol 48 mg/dl; LDL Cholesterol, Calculated 36 mg/dl; Potassium 3.9 mmol/L (3.5-5.1); Sodium 137 mmol/L (135-145); Total Cholesterol 136 mg/dl (50-199); Triglyceride 264 mg/dl (10-149); Very Low Density Lipoprotein 52 mg/dl (0-30); eGFR > 60.00
[2024-04-10 08:40] LABS: Glycohemoglobin (HgbA1c) 6.9 % (4.0-5.6)
[2024-04-10 11:32] LABS: Glucose - Point of Care 238 mg/dl (70-99)
[2024-04-10] MEDS: ALDACTONE 25 MG PO (12:11)
[2024-04-10] MEDS: NOVOLOG FLEXPEN-LOW RESISTANCE 2 UNITS SC ×2 (12:12→16:39)
--- NOTE | 2024-04-10 13:53 | W.PN.HOSP.TC ---
Today's Communication/Plan
-
c/w Lasix
Monitor weight
Assessment / Plan
Assessment / Plan
Physical Exam
General: Well Developed, Well Nourished, No Apparent Distress and Comfortable
HEENT: Normocephalic, Anicteric and Moist Mucous Membranes
Respiratory: Clear and Non Labored Respirations
Cardiac: S1/S2, Regular Rhythm and Peripheral Edema (Nonpitting bilateral lower extremity)
Breast: Deferred by me
GI: Soft, Non Tender, Non Distended and Normal Bowel Sounds
Rectal: Deferred by Provider
Genito-urinary: No Costovertebral Tender
Musculoskeletal: No Clubbing and No Cyanosis
Skin: Warm and Dry
Neuro: AO x 3
Hematologic/Lymphatic: No Lymphadenopathy
Psych: Calm
3F with hypertension, nonobstructive coronary artery disease, type 2 diabetes, dyslipidemia, and dilated cardiomyopathy with a previously recovered EF now back down to 35-40% who presented to the emergency department the chief complaint of shortness
of breath.
Primary director validation: Dr Mix
# Acute on chronic heart failure with reduced EF
Dilated cardiomyopathy (EF 35-40%)
Chest x ray no acute findings
C/W IV Lasix
Monitor weight, rhythm and Bp & HR
Plan to introduce GDMT as her vital signs tolerate
# Right & Left LE edema
US negative for DVT
likely due to CHF
# Possible Lyme Disease, acute on chronic b/l knee and LE arthritis could be due to Lyme's, tick was found on admission, likely attached for a significant period of time due to engorgement
- c/w doxy
- Await Lyme titer
# Obesity
BMI 45
d/w pt, recommend to cut back on her oral intake of food since she is limited physically from chronic neuropathy and b/w hip joints limitations
#hypertension
- continue amlodipine, lisinopril and metoprolol
#type 2 diabetes with neuropathy
HGB A1C 6.9
- continue insulin glargine, insulin lispro and semaglutide
- continue gabapentin
- AccuCheck AC & HS
- SSI
# Diabetic neuropathy
c/w Gabapentin
# Gastroparesis
on Reglan
#depression
Mood is cooperative
- continue alprazolam PRN
- continue desvenlafaxine
#osteoarthritis
Code Status: Full Code
DVT Prophylaxis: Lovenox Sq
Total time spent to see the patient on the floor, examine the patient, review data and lab results, discuss treatment plan with patient, nursing staff around 55 minutes.
Anticipated Discharge: > 48 hours
Subjective/Interval History
-
Date of Service: April 10, 2024
No chest pain
feels sob and bloated
Objective Data
-
Labs:
Laboratory Results
04/10/24
07:10
WBC 7.4
Hgb 13.9
Hct 41.2
Plt Count 183
Sodium 137
Potassium 3.9
Chloride 98
Carbon Dioxide 30
BUN 17
Creatinine 0.7
Glucose 170 H
Calcium 9.1
Vital Signs:
Vital Signs
Temp Pulse Resp BP Pulse Ox
97.7 F 69 17 146/83 97
04/10/24 11:00 04/10/24 12:11 04/10/24 11:00 04/10/24 12:11 04/10/24 11:00
I&O
04/09/24 04/10/24 04/11/24
06:59 06:59 06:59
Intake Total 480 / 480
Balance 480 / 480
[2024-04-10 16:24] LABS: Glucose - Point of Care 232 mg/dl (70-99)
--- NOTE | 2024-04-10 16:57 | CM ---
Addendum entered by RENATA Antonio 04/10/24 17:20:
Received consult for medication pricing for: Jardiance 10 mg daily, Farxiga 10 mg daily, Entresto 24-26 mg BID.
Placed a call to patient's pharmacy, [facility] on [address] and spoke with a pharmacist named Chloe, who stated that all co-pays on all three medications are 0 dollars.
Will update attending.
Original Note:
Met with patient to obtain information for assessment. Patient's son was at bedside. Patient stated that she lives alone in a split level home with 7 steps to enter. She relayed that she has no difficulty with steps. Patient described herself as
independent with her ADLs, personal care, dressing and bathing. 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 Patient can drive and can transport herself to all of her appointments and does all of her own shopping. She has three sons who all
live local and are supportive. Patient ambulates with a cane but also has w/c and walkers if needed. She also has a shower chair and a raised toilet seat.
Patient has had VN in the past through . She has been to [facility] for SNF. She was also at [facility] for rehab.
Patient stated that functionally she feels she is at baseline and would like to return home when medically stable for discharge. She does not feel she will have any needs.
Plan: Case management will continue to follow and assist with discharge planning. Home, no needs.
[2024-04-10] MEDS: LOVENOX 40 MG SC (17:55)
[2024-04-10 21:38] LABS: Glucose - Point of Care 136 mg/dl (70-99)
[2024-04-11 03:46] VITALS: BP 130/67
--- NOTE | 2024-04-11 03:57 | DOWNTIME ---
There was a [employer] Client [employer] Professor Downtime on 04/11/2024 from 0200 to 04/11/2024 at 0325 . Downtime documentation of patient's care, including medication administrations, has been reconciled in the electronic record per guidelines. Refer to the
patient's paper chart under the miscellaneous tab to see printed paper medication records and downtime forms.
[2024-04-11 06:00] VITALS: BMI 45.0
[2024-04-11 07:16] LABS: Blood Urea Nitrogen 22 mg/dl (7-17); Calcium 9.3 mg/dl (8.4-10.2); Carbon Dioxide 32 mmol/L (22-30); Chloride 96 mmol/L (98-107); Estimated Creatinine Clearance 83 ml/min; Glucose 172 mg/dl (70-99); Potassium 4.2 mmol/L (3.5-5.1); Sodium 138 mmol/L (135-145); eGFR > 60.00
[2024-04-11] MEDS: LIDOCAINE 4% PATCH 1 PATCH TOPICAL (07:32)
[2024-04-11] MEDS: LIPITOR 10 MG PO (07:32)
[2024-04-11] MEDS: VITAMIN B-12 1000 MCG PO (07:32)
[2024-04-11] MEDS: PRISTIQ 25 MG PO (07:32)
[2024-04-11] MEDS: NEURONTIN 600 MG PO ×2 (07:33→12:58)
[2024-04-11] MEDS: TOPROL XL 50 MG PO (07:33)
[2024-04-11] MEDS: VITAMIN D3 (cholecalciferol) 50 MCG PO (07:33)
[2024-04-11] MEDS: REGLAN 5 MG PO ×2 (07:33→12:58)
[2024-04-11] MEDS: LASIX 20 MG IV ×2 (07:33→12:59)
[2024-04-11] MEDS: VIBRAMYCIN 100 MG PO (07:33)
[2024-04-11] MEDS: ZESTRIL 20 MG PO (07:33)
[2024-04-11] MEDS: FLEXERIL 5 MG PO (07:33)
[2024-04-11] MEDS: ALDACTONE 25 MG PO (07:33)
[2024-04-11] MEDS: PROTONIX 40 MG PO (07:33)
[2024-04-11 08:06] VITALS: BP 140/68
[2024-04-11 08:22] LABS: Glucose - Point of Care 179 mg/dl (70-99)
[2024-04-11] MEDS: NOVOLOG FLEXPEN 20 UNITS SC ×2 (08:46→12:55)
[2024-04-11] MEDS: NOVOLOG FLEXPEN-LOW RESISTANCE 1 UNITS SC (08:46)
--- NOTE | 2024-04-11 08:46 | W.PN.CD ---
Today's Communication / Plan
-
Home on new GDMT:
Lasix p.o. 20 mg daily
Farxiga 10 mg daily
Entresto 49/51 mg p.o. twice daily to begin on Monday evening
Stop lisinopril
Aldactone 25 mg daily
Renal panel in 1 week, at 2 weeks, at 3 weeks.
Follow-up already arranged.
Impression / Plan
-
IMPRESSION/PLAN: 73F with hypertension, nonobstructive coronary artery disease, type 2 diabetes, dyslipidemia, and dilated cardiomyopathy with a previously recovered EF now back down to 35-40% who presented to the emergency department the chief
complaint of shortness of breath.
Primary radiological engineer: Dr Mix
Dilated cardiomyopathy (EF 35-40%), acute on chronic
-Possible viral etiology, Lyme titer pending
-Nonischemic by cardiac catheterization in 2020
-Stop amlodipine
-GDMT as tolerated
-Beta-pamela: Metoprolol succinate 50 mg daily
-ACEI/ARB/ARNI: Transition to Entresto. She already received lisinopril today. She will stop lisinopril and start Entresto Monday
-SGLT2: Start farxiga 10mg daily---NEW
-MRA: spironolactone 25 mg---will need renal panel at one, two and three weeks. ---NEW
-Diuresis with furosemide, this requires intensive monitoring
-she is feeling much better would like to go home, Start furosemide 20mg daily----NEW
-Heart failure education, she does not weigh herself at home, she will start doing this
-Consider cardiac PET in the outpatient setting
Coronary artery disease, nonocclusive in mid LAD
Hypertension, stable, follows changes medical therapy
Dyslipidemia, continue atorvastatin
Type 2 diabetes mellitus, per primary service
Morbid obesity, BMI 45.4, she would benefit from weight loss, she is currently on GLP-1
Subjective: She is feeling so much better, no more weird feeling in her throat. Would like to go home..
DATA:
Transthoracic echocardiogram, 04/29/2024:
CONCLUSIONS
Left ventricle is mildly dilated.
Mild to moderately reduced left ventricular systolic function.
LVEF is estimated at 35-40%.
No significant valvular disease.
Compared to prior study of 06/23/2023 the LVEF is lower as it was estimated at
50-55%.
Physical Exam
Vital Signs/Labs
Vital Signs
Temp Pulse Resp BP Pulse Ox
97.6 F 61 17 140/68 94
04/11/24 08:06 04/11/24 08:06 04/11/24 08:06 04/11/24 08:06 04/11/24 08:06
04/10/24 04/11/24 04/12/24
06:59 06:59 06:59
Actual Weight 127.516 kg 126.325 kg
04/10/24 07:10
04/11/24 06:35
Triglycerides 264 mg/dl (10-149) H 04/10/24 07:10
LDL Cholesterol, Calc 36 mg/dl 04/10/24 07:10
VLDL Cholesterol, Calc 52 mg/dl (0-30) H 04/10/24 07:10
HDL Cholesterol 48 mg/dl 04/10/24 07:10
04/09/24
14:59
Heo-U-Tybwzdnobpv Pept 584
LAB Results
04/09/24 04/09/24
14:59 17:56
Troponin I 0.020 Cancelled
Physical Exam
Constitutional: No acute distress
Cardiovascular: Rhythm & rate is regular, Pedal edema is absent, JVD pressure is normal, Systolic murmur absent and Diastolic murmur absent
Respiratory: Respiratory effort normal, Lungs clear to auscul., Wheeze Absent, Crackles Absent and Rhonchi Absent
Neuro/Psych: AO x 3
Data Reviewed
-
Date of Service: April 11, 2024
Medical Decision Making: Review of Case with other Provider (Discussed with Dr. Bunn, d/c today with new chf drugs )
EKG: Other (Sinus)
--- NOTE | 2024-04-11 09:49 | W.PN.HOSP.TC ---
Today's Communication/Plan
-
dc after lunch
Assessment / Plan
Assessment / Plan
Physical Exam
General: Well Developed, Well Nourished, No Apparent Distress and Comfortable
HEENT: Normocephalic, Anicteric and Moist Mucous Membranes
Respiratory: Clear and Non Labored Respirations
Cardiac: S1/S2, Regular Rhythm and Peripheral Edema (Nonpitting bilateral lower extremity)
Breast: Deferred by me
GI: Soft, Non Tender, Non Distended and Normal Bowel Sounds
Rectal: Deferred by Provider
Genito-urinary: No Costovertebral Tender
Musculoskeletal: No Clubbing and No Cyanosis
Skin: Warm and Dry
Neuro: AO x 3
Hematologic/Lymphatic: No Lymphadenopathy
Psych: Calm
3F with hypertension, nonobstructive coronary artery disease, type 2 diabetes, dyslipidemia, and dilated cardiomyopathy with a previously recovered EF now back down to 35-40% who presented to the emergency department the chief complaint of shortness
of breath.
Primary state director: Dr Mix
# Acute on chronic heart failure with reduced EF
Dilated cardiomyopathy (EF 35-40%)
Chest x ray no acute findings
s/p IV Lasix
Monitor weight, rhythm and Bp & HR
Plan to introduce GDMT as her vital signs tolerate
# Left should pain, she sees ortho and was give local shot with no help
recommended PT and muscle relaxant.
# Right & Left LE edema
US negative for DVT
likely due to CHF
# Possible Lyme Disease, acute on chronic b/l knee and LE arthritis could be due to Lyme's, tick was found on admission, likely attached for a significant period of time due to engorgement
- c/w doxy
- Await Lyme titer
# Obesity
BMI 45
d/w pt, recommend to cut back on her oral intake of food since she is limited physically from chronic neuropathy and b/w hip joints limitations
#hypertension
- continue amlodipine, lisinopril and metoprolol
#type 2 diabetes with neuropathy
HGB A1C 6.9
- continue insulin glargine, insulin lispro and semaglutide
- continue gabapentin
- AccuCheck AC & HS
- SSI
# Diabetic neuropathy
c/w Gabapentin
# Gastroparesis
on Reglan
#depression
Mood is cooperative
- continue alprazolam PRN
- continue desvenlafaxine
#osteoarthritis
Code Status: Full Code
DVT Prophylaxis: Lovenox Sq
Total discharge time spent to see the patient on the floor, examine the patient, review data and lab results, discuss discharge plan with patient, nursing staff around 67 minutes.
Anticipated Discharge: Today
Subjective/Interval History
-
Date of Service: April 11, 2024
No sob
No chest pain
No fevers
Objective Data
-
Labs:
Laboratory Results
04/11/24
06:35
Sodium 138
Potassium 4.2
Chloride 96 L
Carbon Dioxide 32 H
BUN 22 H
Creatinine 0.8
Glucose 172 H
Calcium 9.3
Vital Signs:
Vital Signs
Temp Pulse Resp BP Pulse Ox
97.6 F 61 17 140/68 94
04/11/24 08:06 04/11/24 08:06 04/11/24 08:06 04/11/24 08:06 04/11/24 08:06
I&O
04/10/24 04/11/24 04/12/24
06:59 06:59 06:59
Intake Total 480 / 480 1260 / 1260
Balance 480 / 480 1260 / 1260
--- NOTE | 2024-04-11 10:23 | CM ---
Patient seen at bedside.
PT rec HH vs. OP PT
Patient declines HH, states she has a script given to her by Dr. Coats on Monday for Outpatient PT & would like to start. States will be with Chloe in [place].
CM consult completed by previous CM regarding cost of medications.
IMM explained & signed. In chart
PLAN: Home, has a script for outpatient therapy (declines hh)
daughter in law to transport.
[2024-04-11 11:47] VITALS: BP 137/70
[2024-04-11 11:56] LABS: Glucose - Point of Care 144 mg/dl (70-99)
[2024-04-11] MEDS: NOVOLOG FLEXPEN-LOW RESISTANCE SC (12:54)
[2024-04-11] MEDS: TYLENOL 650 MG PO (12:58)
[2024-04-11] MEDS: FARXIGA 10 MG PO (12:58)
--- NOTE | 2024-04-11 15:10 | PTCARENOTE ---
Addendum entered by Grisel Johnson RN 04/11/24 15:14:
This nurse left message for call back from [facility].
Original Note:
Rn flow travel physical therapist- Patient presented with dc instructions and she said that she recieved [facility] that said medications would not get her doses for tonight.
--- NOTE | 2024-04-11 15:23 | W.DCSUMMARY ---
Discharge Summary
Discharge Data
Date of Admission: 04/09/24
Date of Discharge: 04/11/24
-
Pending Results: No
Hospital Course
73 years old female presented with shortness of breath and increasing weight. Patient was diagnosed with acute on chronic heart failure with reduced ejection fraction. Patient has history of dilated cardiomyopathy with left ventricular ejection
fraction of 35 to 40%. Patient was evaluated by piggery worker. She was started on intravenous furosemide. She tolerated intravenous diuretics well. She started to feel better with decreasing weight. She was started on goal-directed medical
therapy as her blood pressure tolerated. She was counseled regarding potential side effects of her new medications. Social service was consulted regarding pricing. Patient was found to have a tick attached to her body. Tick was removed and she
was started empirically on a course of oral doxycycline. Patient remained hemodynamically stable. She complained of chronic left shoulder pain that she was seeing orthopedic doctor in the office. She was given Flexeril and it seemed to help.
Patient was discharged home in a stable condition. She was advised to follow-up with piggery worker in the office.
Discharge Plan
-
Patient Disposition: Home (Routine Discharge)
Discharge Diagnosis/Procedures: Acute on chronic Heart failure with reduced ejection fraction: you were seen by piggery worker. You were started on new medications as follows:
Lasix : Potential side effects include renal injury, low potassium
Farxiga : Potential side effects include renal injury, hypoglycemia
Entresto: Potential side effects include renal injury, high potassium
Aldactone: Potential side effects include renal injury, high potassium
Blood work as outpatient to monitor renal function and potassium level. Monitor your blood glucose to avoid low blood glucose.
You are exposed to a tick bite: You are given doxycycline prophylactically. Potential side effects of doxycycline include photosensitivity, avoid direct sun exposure.
Diet: Low Sodium and Diabetic, Carb Controlled
Blood Work: Weekly BMP x 3 - lab slip electronically sent to [facility]
Instructions: *CBC Heart Failure Instructions
Referrals:
Denys Mix MD [Active] - 04/29/24 3:00 pm
Joanna Bal MD [Family Provider] -
Prescriptions:
New
spironolactone 25 mg Tablet
25 mg PO DAILY Qty: 30 0RF
sacubitril-valsartan [Entresto] 49-51 mg Tablet
1 tab PO BID Qty: 60 0RF
Rx Instructions:
Start on 04/13, evening time
dapagliflozin propanediol 10 mg Tablet
10 mg PO DAILY Qty: 30 0RF
cyclobenzaprine 10 mg Tablet
5 mg PO Q8HPRN PRN (Reason: muscle spasm) Qty: 10 0RF
furosemide 40 mg Tablet
20 mg PO DAILY Qty: 30 0RF
doxycycline hyclate 100 mg Capsule
100 mg PO Q12 Qty: 16 0RF
Continued
metoprolol succinate 50 MG tablet extended release 24 hr
50 mg PO DAILY
cyanocobalamin (vitamin B-12) 1,000 mcg Tablet
1,000 mcg PO DAILY Qty: 0
cholecalciferol (vitamin D3) [Vitamin D3] 50 mcg (2,000 unit) Tablet
50 mcg PO DAILY Qty: 0
alprazolam 0.5 mg Tablet
0.5 mg PO DAILYPRN PRN (Reason: anxiety)
gabapentin 600 mg Tablet
600 mg PO QID
loperamide 2 mg Capsule
2 mg PO QIDPRN PRN (Reason: diarrhea)
atorvastatin 10 mg Tablet
10 mg PO DAILY
therapeutic multivitamin Tablet
1 tab PO DAILY
omeprazole 40 mg Capsule,Delayed Release(Dr/Ec)
40 mg PO DAILY
metoclopramide HCl 5 mg Tablet
5 mg PO AC
lidocaine 5 % Adhesive Patch,Medicated
1 patch TOPICAL HSPRN PRN (Reason: feet)
insulin lispro [Admelog SoloStar U-100 Insulin] 100 unit/mL Insulin Pen
20 unit SC AC
insulin glargine [Basaglar KwikPen U-100 Insulin] 100 unit/mL (3 mL) Insulin Pen
65 unit SC HS
desvenlafaxine succinate 25 mg Tablet Extended Release 24 Hr
25 mg PO DAILY
Ozempic 0.25 mg or 0.5 mg (2 mg/3 mL) Pen Injector
0.5 mg SC MO
Discontinued
amlodipine 5 MG tablet
5 mg PO DAILY
lisinopril 20 mg Tablet
20 mg PO DAILY
ketoconazole 2 % Cream
1 applic TOPICAL DAILYPRN PRN (Reason: rash)
Discharge Orders:
Discharge Patient (As Directed); Ordered 04/11/24
Ordered By: Melody Bunn
Discharge Date and Time
Print Language: SETSWANA
[2024-04-11 15:49] VITALS: BP 127/63
--- NOTE | 2024-04-11 15:50 | PTCARENOTE ---
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 Pharmacist confirmed that medications are available for pickle sorter.
[2024-04-11 16:33] LABS: Lyme Antibody Screen, EIA Negative (Negative)
== END 2024-04-11 16:17 | disposition home or self-care (01) | DRG 291 ==
LOC: 3 WEST ACU 22:18
PROVIDERS: Nurse Practitioner Family; Student in an Organized Health Care Education/Training Program; ADMITTING PHYSICIAN Internal Medicine; ATTENDING PHYSICIAN Internal Medicine; EMERGENCY PHYSICIAN Emergency Medicine; FAMILY PHYSICIAN Family Medicine; OTHER PHYSICIAN Internal Medicine Cardiovascular Disease
DX: I11.0 Hypertensive heart disease with heart failure (principal); I50.43 Acute on chronic combined systolic (congestive) and diastolic (congestive) heart failure; Z68.42 Body mass index [BMI] 45.0-49.9, adult; E11.40 Type 2 diabetes mellitus with diabetic neuropathy, unspecified; F32.A Depression, unspecified; M19.90 Unspecified osteoarthritis, unspecified site; E66.01 Morbid (severe) obesity due to excess calories; K31.84 Gastroparesis; Z59.89 Other problems related to housing and economic circumstances
CPT/HCPCS: 71046; 80048; 80053; 80061; 82962; 83036; 83880; 84484; 85025; 85027; 86618; 93005; 93970; 96374; 97162; 97166; 99285

== ENCOUNTER → 2024-04-18 11:32 | Outpatient (REF) | payer MEDICARE, OTHER, SELFPAY ==
[2024-04-18 13:08] LABS: Blood Urea Nitrogen 20 mg/dl (7-17); Calcium 9.8 mg/dl (8.4-10.2); Carbon Dioxide 29 mmol/L (22-30); Chloride 98 mmol/L (98-107); Glucose 160 mg/dl (70-99); Potassium 4.3 mmol/L (3.5-5.1); Sodium 139 mmol/L (135-145); eGFR > 60.00
== END ==
LOC: REG 11:32
PROVIDERS: ATTENDING PHYSICIAN Internal Medicine Cardiovascular Disease; FAMILY PHYSICIAN Family Medicine
DX: I50.9 Heart failure, unspecified (principal)
CPT/HCPCS: 36415; 80048

== ENCOUNTER → 2024-04-25 10:23 | Outpatient (REF) | payer MEDICARE, OTHER, SELFPAY ==
[2024-04-25 11:56] LABS: Blood Urea Nitrogen 20 mg/dl (7-17); Calcium 9.6 mg/dl (8.4-10.2); Carbon Dioxide 26 mmol/L (22-30); Chloride 99 mmol/L (98-107); Glucose 180 mg/dl (70-99); Potassium 5.1 mmol/L (3.5-5.1); Sodium 134 mmol/L (135-145); eGFR > 60.00
== END ==
LOC: REG 10:23
PROVIDERS: ATTENDING PHYSICIAN Internal Medicine Cardiovascular Disease; FAMILY PHYSICIAN Family Medicine
DX: I50.9 Heart failure, unspecified (principal)
CPT/HCPCS: 36415; 80048

== ENCOUNTER → 2024-05-02 10:48 | Outpatient (REF) | payer MEDICARE, OTHER, SELFPAY ==
[2024-05-02 12:41] LABS: Blood Urea Nitrogen 22 mg/dl (7-17); Calcium 9.5 mg/dl (8.4-10.2); Carbon Dioxide 29 mmol/L (22-30); Chloride 98 mmol/L (98-107); Glucose 193 mg/dl (70-99); Potassium 4.6 mmol/L (3.5-5.1); Sodium 137 mmol/L (135-145); eGFR > 60.00
== END ==
LOC: REG 10:48
PROVIDERS: ATTENDING PHYSICIAN Internal Medicine Cardiovascular Disease; FAMILY PHYSICIAN Family Medicine
DX: I10 Essential (primary) hypertension (principal); R53.83 Other fatigue; I50.9 Heart failure, unspecified
CPT/HCPCS: 36415; 80048; 84443

== ENCOUNTER 2024-05-03 07:36 | Day surgery (SDC) | payer MEDICARE, OTHER, SELFPAY ==
[2024-05-03] VITALS (14 sets, daily range): BP systolic 123–150; BP diastolic 54–82
[2024-05-03 08:18] LABS: Glucose - Point of Care 166 mg/dl (70-99)
[2024-05-03] MEDS: LOW STRENGTH ASPIRIN 81 MG PO (09:00)
[2024-05-03] MEDS: NSS 1000 IV (10:30)
--- NOTE | 2024-05-03 17:38 | ITS.CL.PN ---
Bagging Machine Operator - Procedure Note
Procedure
Procedure Note:
CARDIAC CATHETERIZATION REPORT
Date of Procedure: 05/03/2024
Referring: Dr. Denys Mix MD
Indication: cardiomyopathy
PROCEDURE(S)
1. right heart catheterization
2. left heart catheterization
3. coronary angiography
ACCESS
1. 6F right radial artery (closure: radial band)
2. 5F right antecubital vein (closure: manual hemostasis)
CATHETERS
1. 5F [place]
2. 6F JR4
3. 6F JL3.5
HEMODYNAMIC DATA
LV 142/13 (EDP 18) mmHg
AO 144/72 (mean 100) mmHg
RA 13 mmHg
RV 33/12 mmHg
PA 32/22 (mean 26) mmHg
PCWP 16 mmHg
SaO2 94.3%
SvO2 64.0%
Hb 14.2 g/dL
CO/CI 4.74/2.14 L/min/m2
SVR 1469 dsc*-5
PVR 2.1 Wood units
CORONARY ANGIOGRAPHY
Dominance: Right
LM: Large and normal
LAD: Large vessel giving rise to a moderate caliber D1, large D2, and multiple septal perforators. There is a 30% stenosis involving the takeoff of D1 and otherwise mild nonobstructive disease.
LCx: Large vessel giving rise to a large high rising OM1, and large OM 2. There are trivial luminal irregularities
RCA: Large vessel giving rise to a large RPDA, large RPL 1, and small RPL 2. There is no coronary artery disease.
RADIATION: dose 462 mGy; DAP 28.2 Gy*cm2; fluoroscopy time 3.0 min
CONCLUSIONS
1. Mildly elevated biventricular filling pressures, mild pulmonary hypertension, and mildly reduced cardiac index.
2. Nonobstructive coronary artery disease in a right dominant system.
RECOMMENDATIONS
1. expectant management after cardiac catheterization via right radial artery and right brachial vein approach
2. aggressive secondary prevention of coronary artery disease3
3. continued workup and management of NICM
Copy to: Dr. Denys Mix MD (program mgr); Dr. Joanna Bal MD (PCP)
Signed: Paul Brandon MD, PhD
== END 2024-05-03 13:15 | disposition home or self-care (01) ==
LOC: CATH 07:36
PROVIDERS: ATTENDING PHYSICIAN Student in an Organized Health Care Education/Training Program; FAMILY PHYSICIAN Family Medicine; OTHER PHYSICIAN Internal Medicine Cardiovascular Disease
DX: I25.10 Atherosclerotic heart disease of native coronary artery without angina pectoris (principal); I42.9 Cardiomyopathy, unspecified; I27.20 Pulmonary hypertension, unspecified; Z79.899 Other long term (current) drug therapy; Z79.4 Long term (current) use of insulin
CPT/HCPCS: 82962; 93460; C1894; Q9967

== ENCOUNTER → 2024-06-05 16:14 | Outpatient (REF) | payer MEDICARE, OTHER, SELFPAY ==
[2024-06-05 17:07] LABS: NT-proBNP 547 pg/ml
== END ==
LOC: REG 16:14
PROVIDERS: ATTENDING PHYSICIAN Nurse Practitioner Family; FAMILY PHYSICIAN Family Medicine
DX: R05.1 Acute cough (principal); I50.9 Heart failure, unspecified
CPT/HCPCS: 36415; 71046; 83880

== ENCOUNTER → 2024-06-18 10:29 | Outpatient (REF) | payer MEDICARE, OTHER, SELFPAY ==
[2024-06-18 11:16] LABS: % Basophils 0.7 % (0-2); % Eosinophils 4.1 % (0-6); % Immature Granulocytes 0.4 % (0-0.5); % Lymphocytes 32.5 % (20.5-51.1); % Neutrophils 52.3 % (42.2-75.2); Absolute Basophils 0.1 10^3/uL (0-0.2); Absolute Eosinophils 0.3 10^3/uL (0-0.7); Absolute Lymphocytes 2.4 10^3/uL (1.2-3.4); Absolute Monocytes 0.8 10^3/uL (0.1-0.6); Absolute Neutrophils 3.9 10^3/uL (1.4-6.5); Hematocrit 48.4 % (37.0-47.0); Hemoglobin 15.9 g/dL (12.0-16.0); Mean Corp Hgb Conc. 32.9 g/dL (33.0-37.0); Mean Corpuscular Hgb 31.5 pg (27.0-31.0); Mean Corpuscular Volume 95.8 fL (81.0-99.0); Mean Platelet Volume 9.4 fL (7.4-10.4); Nucleated Red Blood Cells % 0 %; Platelet Count 248 10^3/uL (130-400); Red Blood Cell Count 5.05 10^6/uL (4.20-5.40); Red Cell Dist. Width 12.4 % (11.5-14.5); White Blood Cell Count 7.5 10^3/uL (4.8-10.8)
[2024-06-18 11:55] LABS: ALT (SGPT) 27 U/L (0-35); AST (SGOT) 33 U/L (14-36); Albumin 4.7 g/dl (3.5-5.0); Alkaline Phosphatase 119 U/L (38-126); Blood Urea Nitrogen 22 mg/dl (7-17); Calcium 9.7 mg/dl (8.4-10.2); Carbon Dioxide 33 mmol/L (22-30); Chloride 96 mmol/L (98-107); Glucose 152 mg/dl (70-99); HDL Cholesterol 52 mg/dl; LDL Cholesterol, Calculated 51 mg/dl; Potassium 4.8 mmol/L (3.5-5.1); Sodium 137 mmol/L (135-145); Total Bilirubin 0.9 mg/dl (0.2-1.3); Total Cholesterol 150 mg/dl (50-199); Total Protein 7.4 g/dl (6.3-8.2); Triglyceride 235 mg/dl (10-149); Very Low Density Lipoprotein 47 mg/dl (0-30); eGFR > 60.00
== END ==
LOC: REG 10:29
PROVIDERS: ATTENDING PHYSICIAN Physician Assistant
DX: E11.65 Type 2 diabetes mellitus with hyperglycemia (principal)
CPT/HCPCS: 36415; 80053; 80061; 83036; 85025

== ENCOUNTER → 2024-09-05 07:37 | Outpatient (REF) | payer MEDICARE, OTHER, SELFPAY | LOC: RAD 07:37 | PROVIDERS: ATTENDING PHYSICIAN Family Medicine | DX: R22.0 Localized swelling, mass and lump, head (principal); R59.0 Localized enlarged lymph nodes | CPT/HCPCS: 70491; Q9967 ==

== ENCOUNTER → 2024-10-15 09:40 | Outpatient (REF) | payer MEDICARE, OTHER, SELFPAY ==
[2024-10-15 10:17] LABS: % Basophils 0.5 % (0-2); % Eosinophils 3.7 % (0-6); % Immature Granulocytes 0.5 % (0-0.5); % Lymphocytes 27.1 % (20.5-51.1); % Monocytes 9.2 % (1.7-9.3); Absolute Eosinophils 0.3 10^3/uL (0-0.7); Absolute Lymphocytes 2.2 10^3/uL (1.2-3.4); Absolute Monocytes 0.7 10^3/uL (0.1-0.6); Absolute Neutrophils 4.7 10^3/uL (1.4-6.5); Hemoglobin 14.9 g/dL (12.0-16.0); Mean Corp Hgb Conc. 33.1 g/dL (33.0-37.0); Mean Corpuscular Hgb 31.4 pg (27.0-31.0); Mean Corpuscular Volume 94.7 fL (81.0-99.0); Mean Platelet Volume 9.2 fL (7.4-10.4); Nucleated Red Blood Cells % 0 %; Platelet Count 262 10^3/uL (130-400); Red Blood Cell Count 4.75 10^6/uL (4.20-5.40); Red Cell Dist. Width 13.2 % (11.5-14.5)
[2024-10-15 10:39] LABS: ALT (SGPT) 22 U/L (0-35); AST (SGOT) 27 U/L (14-36); Alkaline Phosphatase 109 U/L (38-126); Blood Urea Nitrogen 15 mg/dl (7-17); Calcium 9.4 mg/dl (8.4-10.2); Carbon Dioxide 27 mmol/L (22-30); Chloride 104 mmol/L (98-107); Glucose 159 mg/dl (70-99); HDL Cholesterol 41 mg/dl; LDL Cholesterol, Calculated 49 mg/dl; Sodium 137 mmol/L (135-145); Total Bilirubin 0.6 mg/dl (0.2-1.3); Total Cholesterol 146 mg/dl (50-199); Total Protein 6.9 g/dl (6.3-8.2); Triglyceride 284 mg/dl (10-149); Very Low Density Lipoprotein 56 mg/dl (0-30); eGFR > 60.00
[2024-10-15 11:08] LABS: TSH 1.68 uIU/ml (0.47-4.68)
== END ==
LOC: REG 09:40
PROVIDERS: ATTENDING PHYSICIAN Physician Assistant; FAMILY PHYSICIAN Family Medicine
DX: E11.65 Type 2 diabetes mellitus with hyperglycemia (principal)
CPT/HCPCS: 36415; 80053; 80061; 83036; 84443; 85025

== ENCOUNTER 2024-11-07 08:14 | Outpatient (RCR) | payer MEDICARE, OTHER, SELFPAY | END 2024-11-07 23:59 | disposition home or self-care (01) | LOC: RST 08:14 | PROVIDERS: ATTENDING PHYSICIAN Radiology Radiation Oncology | DX: C01 Malignant neoplasm of base of tongue (principal); R13.12 Dysphagia, oropharyngeal phase | CPT/HCPCS: 92526; 92610 ==

== ENCOUNTER → 2024-11-15 08:27 | Outpatient (REF) | payer MEDICARE, OTHER, SELFPAY ==
[2024-11-15 08:50] VITALS: BP 121/83; BP_SYST 63; BMI 44.8
[2024-11-15] MEDS: ANCEF 15 MG IV (09:39)
[2024-11-15 10:40] VITALS: BP 128/61; BP_SYST 57
[2024-11-15 10:45] VITALS: BP 104/57; BP_SYST 59
[2024-11-15 11:00] VITALS: BP 115/61; BP_SYST 61
== END ==
LOC: RADI 08:27
PROVIDERS: ATTENDING PHYSICIAN Internal Medicine Hematology & Oncology
DX: C09.0 Malignant neoplasm of tonsillar fossa (principal)
CPT/HCPCS: 36561; 76937; 77001; 99152; 99153; C1788

== ENCOUNTER → 2024-11-19 13:09 | Outpatient (REF) | payer MEDICARE, OTHER, SELFPAY ==
[2024-11-19 13:41] LABS: Hematocrit 42.9 % (37.0-47.0); Hemoglobin 14.1 g/dL (12.0-16.0); Mean Corp Hgb Conc. 32.9 g/dL (33.0-37.0); Mean Corpuscular Volume 96.6 fL (81.0-99.0); Nucleated Red Blood Cells % 0 %; Platelet Count 191 10^3/uL (130-400); Red Cell Dist. Width 13.7 % (11.5-14.5)
[2024-11-19 14:07] LABS: Blood Urea Nitrogen 21 mg/dl (7-17); Calcium 9.7 mg/dl (8.4-10.2); Carbon Dioxide 26 mmol/L (22-30); Chloride 104 mmol/L (98-107); Glucose 164 mg/dl (70-99); Potassium 4.6 mmol/L (3.5-5.1); Sodium 137 mmol/L (135-145); eGFR > 60.00
== END ==
LOC: REG 13:09
PROVIDERS: ATTENDING PHYSICIAN Internal Medicine Hematology & Oncology; FAMILY PHYSICIAN Family Medicine
DX: C64.1 Malignant neoplasm of right kidney, except renal pelvis (principal); C09.0 Malignant neoplasm of tonsillar fossa
CPT/HCPCS: 36415; 80048; 85025

== ENCOUNTER → 2024-11-25 12:09 | Outpatient (REF) | payer MEDICARE, OTHER, SELFPAY ==
[2024-11-25 11:34] LABS: Hematocrit 43.5 % (37.0-47.0); Hemoglobin 14.4 g/dL (12.0-16.0); Mean Corp Hgb Conc. 33.1 g/dL (33.0-37.0); Mean Corpuscular Volume 96.9 fL (81.0-99.0); Platelet Count 204 10^3/uL (130-400); Red Cell Dist. Width 13.3 % (11.5-14.5)
[2024-11-25 12:20] LABS: ALT (SGPT) 21 U/L (0-35); AST (SGOT) 22 U/L (14-36); Albumin 4.3 g/dl (3.5-5.0); Alkaline Phosphatase 106 U/L (38-126); Blood Urea Nitrogen 23 mg/dl (7-17); Calcium 9.4 mg/dl (8.4-10.2); Carbon Dioxide 29 mmol/L (22-30); Chloride 98 mmol/L (98-107); Glucose 161 mg/dl (70-99); Magnesium 1.3 mg/dl (1.6-2.3); Potassium 4.1 mmol/L (3.5-5.1); Sodium 135 mmol/L (135-145); Total Protein 6.9 g/dl (6.3-8.2); eGFR > 60.00
== END ==
LOC: OIDL 12:09
PROVIDERS: ATTENDING PHYSICIAN Internal Medicine Hematology & Oncology
DX: C64.1 Malignant neoplasm of right kidney, except renal pelvis (principal); C09.0 Malignant neoplasm of tonsillar fossa
CPT/HCPCS: 80053; 83735; 85025

== ENCOUNTER → 2024-12-02 16:25 | Outpatient (REF) | payer MEDICARE, OTHER, SELFPAY ==
[2024-12-02 12:36] LABS: Blood Urea Nitrogen 29 mg/dl (7-17); Calcium 9.3 mg/dl (8.4-10.2); Carbon Dioxide 24 mmol/L (22-30); Chloride 102 mmol/L (98-107); Glucose 162 mg/dl (70-99); Magnesium 1.5 mg/dl (1.6-2.3); Potassium 4.4 mmol/L (3.5-5.1); Sodium 135 mmol/L (135-145); eGFR > 60.00
== END ==
LOC: OIDL 16:25
PROVIDERS: ATTENDING PHYSICIAN Nurse Practitioner Adult Health
DX: C61 Malignant neoplasm of prostate (principal)
CPT/HCPCS: 80048; 83735

== ENCOUNTER → 2024-12-03 16:31 | Outpatient (REF) | payer MEDICARE, OTHER, SELFPAY ==
[2024-12-03 17:02] LABS: Hematocrit 40.7 % (37.0-47.0); Hemoglobin 13.6 g/dL (12.0-16.0); Mean Corp Hgb Conc. 33.4 g/dL (33.0-37.0); Mean Corpuscular Volume 97.6 fL (81.0-99.0); Nucleated Red Blood Cells % 0 %; Platelet Count 170 10^3/uL (130-400); Red Cell Dist. Width 13.7 % (11.5-14.5)
[2024-12-03 17:27] LABS: ALT (SGPT) 45 U/L (0-35); AST (SGOT) 25 U/L (14-36); Albumin 4.1 g/dl (3.5-5.0); Alkaline Phosphatase 113 U/L (38-126); Blood Urea Nitrogen 24 mg/dl (7-17); Calcium 9.3 mg/dl (8.4-10.2); Carbon Dioxide 24 mmol/L (22-30); Chloride 102 mmol/L (98-107); Glucose 204 mg/dl (70-99); Magnesium 1.6 mg/dl (1.6-2.3); Potassium 4.1 mmol/L (3.5-5.1); Sodium 135 mmol/L (135-145); Total Protein 6.7 g/dl (6.3-8.2); eGFR > 60.00
== END ==
LOC: REG 16:31
PROVIDERS: ATTENDING PHYSICIAN Internal Medicine Hematology & Oncology; FAMILY PHYSICIAN Family Medicine
DX: C64.1 Malignant neoplasm of right kidney, except renal pelvis (principal); C09.0 Malignant neoplasm of tonsillar fossa
CPT/HCPCS: 36415; 80053; 83735; 85025

== ENCOUNTER 2024-12-12 06:18 | Day surgery (SDC) | payer MEDICARE, OTHER, SELFPAY ==
--- NOTE | 2024-12-05 16:01 | CM ---
Cm was made aware that patient is coming in on 12/12 for new g tube placement. CM is requesting outpatient RD recommendations to order tube feedings. Patient will be SDS. CM sent preliminary referral to [facility].
[2024-12-10 14:06] VITALS: BMI 44.3
[2024-12-12] VITALS (18 sets, daily range): BP systolic 109–138; BP diastolic 36–67; BMI 44.3
[2024-12-12 06:36] LABS: Glucose - Point of Care 158 mg/dl (70-99)
[2024-12-12] MEDS: TYLENOL 1000 MG PO (06:46)
[2024-12-12] MEDS: NORMOSOL-R/PLASMALYTE-A 1000 IV ×2 (06:47→12:28)
[2024-12-12 08:24] LABS: Glucose - Point of Care 139 mg/dl (70-99)
--- NOTE | 2024-12-12 08:35 | W.IMMPOSTOP ---
Surgical Immed Post Op Note
-
Primary Surgeon: Allison
Assisting Surgeon: BETO Brandon
Pre-op Diagnosis: Dysphagia, SCC
Post-op Diagnosis: Dysphagia, SCC
Procedure Performed: Laparoscopic assisted G-tube placement
Anesthesia Type: General
Specimen / Cultures: None
Estimated Blood Loss: 3 cc
Complications: None
Operative Findings:
1. 20 Fr percutaneous G-tube inserted along greater curve of stomach, secured at 5 cm at the skin, 8cc water in balloon
2. 0 silk stay stitch x3 triangulating insertion
3. Easy aspiration of gastric contents and flushing
[2024-12-12] MEDS: ZOFRAN 4 MG IV (08:50)
[2024-12-12] MEDS: DILAUDID 0.5 MG IV ×3 (08:52→21:05)
[2024-12-12] MEDS: COMPAZINE 5 MG IV (09:20)
[2024-12-12] MEDS: NSS (PRESERVATIVE FREE) 10 ML IV (12:29)
[2024-12-12] MEDS: PROTONIX IV 40 MG IV (12:30)
[2024-12-12 12:44] LABS: Glucose - Point of Care 176 mg/dl (70-99)
--- NOTE | 2024-12-12 14:38 | PTCARENOTE ---
Pt arrived 1145 from PACU. Pt aaox3. VSS. 96% on 2LO2. IVF infusing. 3 lap sites OA with dermabond. LUQ G tube in place. oriented to room and call hill. bed locked and in lowest position. care ongoing.
--- NOTE | 2024-12-12 15:10 | VNURNOTE ---
Home Health Liaison met with patient at bedside to discuss [facility] nurse/therapy, visits, schedule and homebound status. Patient is agreeable and understands that visits at home will be 2-3 x per week to assess and teach medical, PEG tube, and tube
feed management. Patient is aware that [facility] will plan on same day VN visit; pt will need to DC home in the AM, [facility] will see same day in afternoon. patient verbalized understanding. She stated she lives alone. Her sister might be able to help.
Patient provided care and tube feeds to spouse 10 years ago. She is open to learning.
Explained need for HOB elevation with tube feeds. Advised she will need a hospital bed. Patient declined hospital bed stating she has a lounge chair that elevates HOB. She prefers to use that. Noted that G tube has Legacy connector.
TF Rx, home TF recs pending
[facility] referral accepted in Care Port.
[2024-12-12] MEDS: LOVENOX 40 MG SC (17:13)
[2024-12-13] MEDS: DILAUDID 0.5 MG IV ×3 (01:23→09:26)
[2024-12-13] MEDS: ZOFRAN 4 MG IV (01:23)
[2024-12-13] MEDS: TORADOL 10 MG IV ×3 (02:58→20:05)
[2024-12-13 08:12] LABS: Glucose - Point of Care 128 mg/dl (70-99)
[2024-12-13 08:57] LABS: Glycohemoglobin (HgbA1c) 7.1 % (4.0-5.6)
--- NOTE | 2024-12-13 08:59 | CM ---
Addendum entered by Layla Lara RN 12/13/24 15:36:
CM received update from Camilla at [facility]. As per Camilla, tube feedings should be covered by Medicare, but requires final RD evaluation by [facility]. CM will follow up with [facility] on 12/16 to confirm tube feeding coverage.
Addendum entered by Layla Lara RN 12/13/24 14:59:
CM met with patient in room. Patient is agreeable to tube feeds, but became tearful and overwhelmed. Patient complaining of surgical site pain and she also stated that she did not 'want' surgery to place the feeding tube. Patient stated that she
knows how to care for the tube feed as she had taken care of her previously.
CM provided emotional support and called [facility]. Patient would like to speak with [facility].
CM is pending Medicare approval for tube feeds as per Camilla at [facility].
Addendum entered by Layla Lara RN 12/13/24 09:23:
Cm was advised that Tube feedings will have to be approved through medicare. CM sent updated [facility] referral via [facility] with additional documentation.
Original Note:
CM updated referral management liaison from [facility] regarding new tube feed orders.
[2024-12-13 09:00] VITALS: BP 133/56
[2024-12-13 09:39] LABS: Hematocrit 38.7 % (37.0-47.0); Hemoglobin 12.9 g/dL (12.0-16.0); Mean Corp Hgb Conc. 33.3 g/dL (33.0-37.0); Mean Corpuscular Volume 97.2 fL (81.0-99.0); Platelet Count 137 10^3/uL (130-400); Red Cell Dist. Width 13.8 % (11.5-14.5)
[2024-12-13] MEDS: NSS (PRESERVATIVE FREE) 10 ML IV (09:40)
[2024-12-13] MEDS: ENTRESTO 49 MG/51 MG 1 TAB TUBE ×2 (09:41→20:14)
[2024-12-13] MEDS: NEURONTIN 600 MG TUBE ×4 (09:41→22:10)
[2024-12-13] MEDS: PROTONIX IV 40 MG IV (09:41)
[2024-12-13] MEDS: LOW STRENGTH ASPIRIN 81 MG TUBE (09:41)
[2024-12-13] MEDS: LOPRESSOR 25 MG TUBE ×2 (09:41→20:18)
[2024-12-13] MEDS: ALDACTONE 25 MG TUBE (09:42)
[2024-12-13] MEDS: LASIX 20 MG TUBE (09:42)
[2024-12-13] MEDS: LIPITOR 10 MG TUBE (09:42)
[2024-12-13 09:46] LABS: Blood Urea Nitrogen 22 mg/dl (7-17); Calcium 8.7 mg/dl (8.4-10.2); Carbon Dioxide 24 mmol/L (22-30); Chloride 103 mmol/L (98-107); Estimated Creatinine Clearance 86 ml/min; Glucose 148 mg/dl (70-99); Potassium 4.1 mmol/L (3.5-5.1); Sodium 136 mmol/L (135-145); eGFR > 60.00
[2024-12-13] MEDS: XANAX 0.5 MG TUBE (09:47)
--- NOTE | 2024-12-13 09:51 | W.PN.GS2 ---
Today's Communication / Plan
-
-- Clears as tolerated
-- G-tube to gravity for now, flush Q6H, crush all meds administered through G-tube, will start TF this afternoon pending nutrition recs
-- Dispo pending pain control, tolerance of TF and outpatient coordination of care
Assessment / Plan
-
Patient is a 74 yo F POD#1 s/p laparoscopic assisted gastrostomy tube placement
AVSS
Labs pending
Postoperative issues with pain likely MSK related to tube placement. Unlikely that tube is malpositioned given easy flushing and aspiration of gastric contents. Nutrition recs pending for administering tube feeds today. Case management consult
for coordination of home care.
-- Clears as tolerated
-- G-tube to gravity for now, flush Q6H, crush all meds administered through G-tube, will start TF this afternoon pending nutrition recs
-- Pain control: Tylenol, Toradol, Oxycodone
-- Home meds, ISS
-- DVT: Lovenox
-- GI: PPI
-- Dispo pending pain control, tolerance of TF and outpatient coordination of care
Subjective Data
-
Date of issues with service: December 13, 2024
Issues with his left-sided abdominal discomfort. Mild nausea, resolved, no episodes of vomiting. Minimal ambulation. Passing flatus. No BM. Afebrile.
Objective Data
-
Intake and Output
12/12/24 12/13/24 12/14/24
06:59 06:59 06:59
Intake Total 1160 / 1160
Balance 1160 / 1160
Intake:
Oral fluids 960 / 960
IV fluids (Total) 200 / 200
Normosol 200 / 200
Other:
Number of approximated SMALL 1
amounts of urine
Number of approximated LARGE 2
amounts of urine
Vital Signs
Temp Pulse Resp BP Pulse Ox
98.7 F 52 18 133/56 98
12/13/24 09:00 12/13/24 09:00 12/13/24 09:00 12/13/24 09:41 12/13/24 09:00
Lab Results
12/13/24 09:25
12/13/24 07:26
Calcium 8.7 mg/dl (8.4-10.2) 12/13/24 07:26
Physical Exam
-
Gen: pain
Abd: soft, obese, tender in LUQ, mild ecchymosis, ND, no diffuse peritonitis, G-tube site c/d/i - at 5 cm at skin, flushes easily, aspiration of gastric contents, placed to gravity bag
Patient has a duval catheter: No
Patient has a central line: No
--- NOTE | 2024-12-13 11:04 | W.PN.UPDATE ---
Update Note
Progress Note Update
G-tube placed to drainage for less than 100ml of gastric contents
Ok to initiate TF diet with Jevity 1.5, anticipate DENY >90days
CM consult placed to coordinate home tube feedings, script provided
[2024-12-13 11:33] LABS: Glucose - Point of Care 100 mg/dl (70-99)
[2024-12-13] MEDS: NOVOLOG FLEXPEN-MODERATE RESISTANCE SC (11:35)
[2024-12-13 11:45] VITALS: BP 124/55
[2024-12-13] MEDS: ROXICODONE ORAL SOLUTION 5 MG TUBE ×2 (12:46→16:50)
[2024-12-13 13:05] VITALS: BP 121/87
--- NOTE | 2024-12-13 15:00 | PTOTSP ---
Speech Language Pathology
Pt seen for clinical bedside swallow evaluation. Pt has upper dentures, which are a home, but she does not wear them all of the time, as she frequently gags when attempting to place them. P.O. trials of puree, regular solids, and thin liquids
provided. Adequate mastication, bolus formation, and A-P transit noted with no oral residue. Pt reported odynophagia across consistencies. With first sip of liquid, coughing noted. No other coughing noted. Pt reported infrequent cough with
liquids. Main issue appears to be odynophagia.
Recommend:
(1) Regular solids (easy to chew) with thin liquids so as to not unnecessarily limit pt choices
(2) Aspiration precautions: sit upright, slow rate
(3) Meds as tolerated
(4) Outpatient dysphagia therapy follow up
(5) OXYACETYLENE BURNER to sign off in this level of care. Please reconsult as indicated
[2024-12-13 16:56] LABS: Glucose - Point of Care 153 mg/dl (70-99)
[2024-12-13] MEDS: NOVOLOG FLEXPEN-MODERATE RESISTANCE 1 UNITS SC (16:56)
[2024-12-13] MEDS: LOVENOX 40 MG SC (17:19)
[2024-12-13 21:12] LABS: Glucose - Point of Care 165 mg/dl (70-99)
[2024-12-13 23:05] VITALS: BP 138/60
[2024-12-14] MEDS: ROXICODONE ORAL SOLUTION 5 MG TUBE ×3 (05:43→18:14)
[2024-12-14 07:05] VITALS: BP 142/55
[2024-12-14] MEDS: NEURONTIN 600 MG TUBE ×4 (08:03→21:27)
[2024-12-14] MEDS: ENTRESTO 49 MG/51 MG 1 TAB TUBE ×2 (08:03→20:22)
[2024-12-14] MEDS: LOW STRENGTH ASPIRIN 81 MG TUBE (08:03)
[2024-12-14] MEDS: LIPITOR 10 MG TUBE (08:03)
[2024-12-14] MEDS: LASIX 20 MG TUBE (08:03)
[2024-12-14] MEDS: LOPRESSOR 25 MG TUBE ×2 (08:03→21:27)
[2024-12-14] MEDS: ALDACTONE 25 MG TUBE (08:03)
[2024-12-14] MEDS: NSS (PRESERVATIVE FREE) 10 ML IV (08:04)
[2024-12-14] MEDS: PROTONIX IV 40 MG IV (08:04)
[2024-12-14 08:11] LABS: Glucose - Point of Care 196 mg/dl (70-99)
[2024-12-14] MEDS: NOVOLOG FLEXPEN-MODERATE RESISTANCE 1 UNITS SC ×3 (08:17→16:04)
[2024-12-14] MEDS: TORADOL 10 MG IV (08:21)
[2024-12-14 11:41] LABS: Glucose - Point of Care 188 mg/dl (70-99)
--- NOTE | 2024-12-14 13:35 | W.PN.GS2 ---
Addendum entered and electronically signed by João Bennett MD 12/14/24 14:07:
I saw and examined the patient.
The BOX PERSON's note was reviewed and I agree with the note.
Comment:
Tolerating tube feeds, almost at goal. Passing flatus and BMs.
AFVSS, ABD soft, protuberant, nondistended, appropriately tender near incision; incisions well-approximated without erythema or drainage
� Advance tube feeds to goal
� Pending dispo; okay for discharge from colorectal standpoint, needs home tube feeds set up; appreciate case management
Original Note:
Today's Communication / Plan
-
dispo planning
Assessment / Plan
-
Patient is a 74 yo F POD#2 s/p laparoscopic assisted gastrostomy tube placement
AVSS
Labs pending
Pain much improved today
Tolerating tube feedings
Appreciate TEST EXAMINER, odynophagia present but ok for po intake as tolerated
-- Soft food as tolerated (poor po intake) with Jevity TF
-- appreciate nutrition recs
-- Case management following for home care arrangements
-- Pain control: Tylenol, Toradol, Oxycodone
-- Home meds, ISS
-- DVT: Lovenox
-- GI: PPI
discharge once home tube feedings arranged, will reach out to CM to determine timing
Subjective Data
-
Date of Service: December 14, 2024
Pt seen and examined at bedside with Dr. Bennett. Denies n/v. tolerating tube feedings. Passing flatus and had a BM this am. Pain much better today.
Objective Data
-
Intake and Output
12/13/24 12/14/24 12/15/24
06:59 06:59 06:59
Intake Total 1160 / 1160 1310 / 1310 480 / 480
Balance 1160 / 1160 1310 / 1310 480 / 480
Intake:
Oral fluids 960 / 960 1040 / 1040 480 / 480
IV fluids (Total) 200 / 200
Normosol 200 / 200
Tube feeding 120 / 120
Feeding tube flush amount 150 / 150
Other:
Number of approximated SMALL 1
amounts of urine
Number of approximated LARGE 2 1 2
amounts of urine
Number of unmeasured liquid
stools
Rectum 1 1
Vital Signs
Temp Pulse Resp BP Pulse Ox
97.9 F 59 16 142/55 96
12/14/24 07:05 12/14/24 07:05 12/14/24 07:05 12/14/24 07:05 12/14/24 07:05
Lab Results
12/13/24 09:25
12/13/24 07:26
Calcium 8.7 mg/dl (8.4-10.2) 12/13/24 07:26
Physical Exam
-
Gen: pain
Abd: soft, obese, mild incisional tenderness, mild ecchymosis, ND, no diffuse peritonitis, G-tube site c/d/i - at 5 cm at skin, tube feeding being instilled
Patient has a duval catheter: No
Patient has a central line: No
[2024-12-14] MEDS: XANAX 0.5 MG TUBE ×2 (14:06→21:32)
[2024-12-14 15:05] VITALS: BP 139/70
[2024-12-14 16:04] LABS: Glucose - Point of Care 169 mg/dl (70-99)
[2024-12-14] MEDS: MYLICON 80 MG PO ×2 (16:08→20:32)
[2024-12-14] MEDS: LOVENOX 40 MG SC (18:14)
[2024-12-14 21:20] LABS: Glucose - Point of Care 227 mg/dl (70-99)
[2024-12-14 23:00] VITALS: BP 136/67
[2024-12-15 07:05] VITALS: BP 136/53
[2024-12-15 07:15] LABS: Glucose - Point of Care 219 mg/dl (70-99)
[2024-12-15] MEDS: NOVOLOG FLEXPEN-MODERATE RESISTANCE 3 UNITS SC (08:20)
[2024-12-15] MEDS: ENTRESTO 49 MG/51 MG 1 TAB TUBE ×2 (08:21→19:46)
[2024-12-15] MEDS: ALDACTONE 25 MG TUBE (08:21)
[2024-12-15] MEDS: NEURONTIN 600 MG TUBE ×4 (08:21→21:18)
[2024-12-15] MEDS: LOPRESSOR 25 MG TUBE ×2 (08:21→19:51)
[2024-12-15] MEDS: LIPITOR 10 MG TUBE (08:22)
[2024-12-15] MEDS: PROTONIX IV 40 MG IV (08:22)
[2024-12-15] MEDS: LOW STRENGTH ASPIRIN 81 MG TUBE (08:22)
[2024-12-15] MEDS: LASIX 20 MG TUBE (08:22)
[2024-12-15] MEDS: NSS (PRESERVATIVE FREE) 10 ML IV (08:22)
[2024-12-15] MEDS: ROXICODONE ORAL SOLUTION 5 MG TUBE ×2 (08:25→15:28)
[2024-12-15] MEDS: XANAX 0.5 MG TUBE ×3 (08:25→21:18)
[2024-12-15] MEDS: TORADOL 10 MG IV ×2 (08:25→19:57)
[2024-12-15] MEDS: MYLICON 80 MG PO ×3 (08:30→19:46)
--- NOTE | 2024-12-15 11:47 | W.PN.GS2 ---
Addendum entered and electronically signed by João Bennett MD 12/15/24 15:38:
I saw and examined the patient.
The CLAIMS EXAMINER's note was reviewed and I agree with the note.
Comment:
Tolerating tube feeds and some oral intake without N/V
AFVSS, ABD soft, nondistended, mildly tender on the right, no rebound or guarding; incisions well-approximated without erythema or drainage
�Pending arrangement of outpatient tube feeds per case management; unable to set up over weekend; plan for discharge tomorrow
Original Note:
Today's Communication / Plan
-
d/c home once TF arranged
Assessment / Plan
-
Patient is a 74 yo F POD#3 s/p laparoscopic assisted gastrostomy tube placement
AVSS
Tolerating tube feedings
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
-- Soft food as tolerated (poor po intake) with Jevity TF (at goal)
-- appreciate nutrition recs
-- Case management following for home care arrangements
-- Pain control: Tylenol, Toradol, Oxycodone
-- Home meds, ISS
-- DVT: Lovenox
-- GI: PPI
discharge once home tube feedings arranged, d/w CM who anticipate this will be tomorrow (monday)
Subjective Data
-
Date of Service: December 15, 2024
Pt seen and examined at bedside with Dr. Bennett. Denies n/v. Some cramping pain to her left side. Passing flatus. No BM as of yet today. Pain improving day by day.
Objective Data
-
Intake and Output
12/14/24 12/15/24 12/16/24
06:59 06:59 06:59
Intake Total 1310 / 1310 2340 / 2340
Balance 1310 / 1310 2340 / 2340
Intake:
Oral fluids 1040 / 1040 1440 / 1440
Tube feeding 120 / 120 600 / 600
Feeding tube flush amount 150 / 150 300 / 300
Other:
Number of approximated MODERATE 1 1
amounts of urine
Number of approximated LARGE 1 2
amounts of urine
Number of unmeasured liquid
stools
Rectum 1 1
Vital Signs
Temp Pulse Resp BP Pulse Ox
98.1 F 62 16 136/53 95
12/15/24 07:05 12/15/24 07:05 12/15/24 07:05 12/15/24 07:05 12/15/24 07:05
Lab Results
12/13/24 09:25
12/13/24 07:26
Calcium 8.7 mg/dl (8.4-10.2) 12/13/24 07:26
Physical Exam
-
Gen: pain
Abd: soft, obese, mild incisional tenderness, mild ecchymosis, ND, no diffuse peritonitis, G-tube site c/d/i - at 5 cm at skin, tube feeding being instilled
Patient has a duval catheter: No
Patient has a central line: No
[2024-12-15 12:45] LABS: Glucose - Point of Care 265 mg/dl (70-99)
[2024-12-15] MEDS: NOVOLOG FLEXPEN-MODERATE RESISTANCE 5 UNITS SC ×2 (13:05→17:47)
[2024-12-15 15:10] VITALS: BP 138/61
[2024-12-15 16:55] LABS: Glucose - Point of Care 250 mg/dl (70-99)
[2024-12-15] MEDS: LOVENOX 40 MG SC (17:46)
[2024-12-15] MEDS: LANTUS 0.45 UNITS SC (21:13)
[2024-12-15 23:03] VITALS: BP 136/53
[2024-12-16 00:14] LABS: Glucose - Point of Care 311 mg/dl (70-99)
[2024-12-16] MEDS: NOVOLOG FLEXPEN-MODERATE RESISTANCE 7 UNITS SC (00:47)
[2024-12-16 05:31] LABS: Glucose - Point of Care 252 mg/dl (70-99)
[2024-12-16] MEDS: NOVOLOG FLEXPEN-MODERATE RESISTANCE 5 UNITS SC (05:55)
[2024-12-16 07:30] VITALS: BP 131/66
[2024-12-16] MEDS: MYLICON 80 MG PO (08:03)
[2024-12-16] MEDS: XANAX 0.5 MG TUBE (08:03)
[2024-12-16] MEDS: ENTRESTO 49 MG/51 MG 1 TAB TUBE (08:04)
[2024-12-16] MEDS: NEURONTIN 600 MG TUBE (08:04)
[2024-12-16] MEDS: LASIX 20 MG TUBE (08:04)
[2024-12-16] MEDS: PROTONIX IV 40 MG IV (08:05)
[2024-12-16] MEDS: LIPITOR 10 MG TUBE (08:05)
[2024-12-16] MEDS: LOW STRENGTH ASPIRIN 81 MG TUBE (08:05)
[2024-12-16] MEDS: NSS (PRESERVATIVE FREE) 10 ML IV (08:05)
[2024-12-16] MEDS: LOPRESSOR 25 MG TUBE (08:06)
[2024-12-16] MEDS: TORADOL 10 MG IV (08:07)
[2024-12-16] MEDS: ALDACTONE 25 MG TUBE (08:08)
--- NOTE | 2024-12-16 08:50 | W.PN.GS2 ---
Today's Communication / Plan
-
dispo planning
Assessment / Plan
-
Patient is a 74 yo F POD#4 s/p laparoscopic assisted gastrostomy tube placement
AVSS
Tolerating tube feedings
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
Will try muscle relaxant for discomfort to side
-- Soft food as tolerated (poor po intake) with Jevity TF (at goal)
-- appreciate nutrition recs
-- Case management following for home care arrangements
-- Pain control: Tylenol, Toradol, Oxycodone
-- Home meds, ISS
-- DVT: Lovenox
-- GI: PPI
discharge once home tube feedings arranged.
Subjective Data
-
Date of Service: December 16, 2024
Pt seen and examined at bedside with Dr. Philip. Davis n/v. Tolerating TF. Feels a cramping pain in her side, stable since OR.
Objective Data
-
Intake and Output
12/15/24 12/16/24 12/17/24
06:59 06:59 06:59
Intake Total 2340 / 2340 1460 / 1460
Balance 2340 / 2340 1460 / 1460
Intake:
Oral fluids 1440 / 1440 560 / 560
Tube feeding 600 / 600 600 / 600
Feeding tube flush amount 300 / 300 300 / 300
Other:
Number of approximated MODERATE 1 2
amounts of urine
Number of approximated LARGE 2 1
amounts of urine
Number of unmeasured liquid
stools
Rectum 1
Vital Signs
Temp Pulse Resp BP Pulse Ox
97.6 F 68 20 131/66 97
12/16/24 07:30 12/16/24 08:08 12/16/24 07:30 12/16/24 08:08 12/16/24 07:30
Lab Results
12/13/24 09:25
12/13/24 07:26
Calcium 8.7 mg/dl (8.4-10.2) 12/13/24 07:26
Physical Exam
-
Gen: pain
Abd: soft, obese, mild incisional tenderness, mild ecchymosis, ND, no diffuse peritonitis, G-tube site c/d/i - at 5 cm at skin, tube feeding being instilled
Patient has a duval catheter: No
Patient has a central line: No
--- NOTE | 2024-12-16 09:47 | CM ---
CM met with patient in room. Patient stated that she has a chemotherapy appointment at 11:30 that her cousin will bring her to. Patient is agreeable to delivery of tube feeding. BRANDON confirmed with Camilla at [facility] that she is approved for
delivery. BRANDON updated [facility] Admission RN with plan for discharge today. VN will meet patient at home.
PLAN: Home with [facility] for tube feedings and [facility].
[2024-12-16] MEDS: FLEXERIL 5 MG PO (09:58)
[2024-12-16 10:47] VITALS: BP 141/57
--- NOTE | 2024-12-16 13:47 | W.DS.TRANS ---
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
-
Discharge Instructions:
Sleep Apnea Risk High
Discharge Diagnosis/Procedures Laparoscopic assisted g-tube placement
Diet Tube feeding,As tolerated
Additional Diets Jevity 1.5 at 110ml/hr from 9pm to 7am with
250ml free water flush at the beginning and end
of every feeding cycle. Additional flushes of
400ml x2 during the day.
Soft foods as tolerated
Activity No strenuous activity
Additional Activity Avoid lifting over 15lbs for the next 2-3 weeks
Bathing Restrictions OK to Shower
Wound Care allow the glue to flake off your incisions on
its own over the next 2-3 weeks. ok to shower.
keep dry gauze under the bumper of your tube to
keep it dry and prevent chafing. change daily
and as needed
Instructions: Enteral (tube) feeding
Stand-Alone Forms:
Changes to Home Medications: No
Discharge Medications:
DC Medications w/original date entered in [employer]
metoprolol succinate 50 mg tablet,extended release 24 hr 50 mg PO DAILY Blood pressure 10/09/19
cholecalciferol (vitamin D3) 50 mcg (2,000 unit) tablet (Vitamin D3) 50 mcg PO DAILY Supplement ##0 08/20/20
cyanocobalamin (vitamin B-12) 1,000 mcg tablet 1,000 mcg PO DAILY Supplement ##0 08/20/20
alprazolam 0.5 mg tablet 0.5 mg PO BIDPRN PRN anxiety 12/11/21
atorvastatin 10 mg tablet 10 mg PO DAILY High Cholesterol 04/09/24
desvenlafaxine succinate 25 mg tablet,extended release 24 hr 25 mg PO DAILY Mental Health/Anxiety 04/09/24
gabapentin 600 mg tablet 600 mg PO QID Neurological Condition 04/09/24
insulin glargine 100 unit/mL (3 mL) subcutaneous pen (Basaglar KwikPen U-100 Insulin) 45 unit SC HS Diabetes 04/09/24
insulin lispro 100 unit/mL subcutaneous pen (Admelog [facility] U-100 Insulin lispro) 22 unit SC AC Diabetes 04/09/24
lidocaine 5 % topical patch 1 patch topical HSPRN PRN feet 04/09/24
loperamide 2 mg capsule 2 mg PO QIDPRN PRN diarrhea 04/09/24
metoclopramide HCl 5 mg tablet 5 mg PO AC N/V 04/09/24
omeprazole 40 mg capsule,delayed release 40 mg PO DAILY Gastrointestinal Issue 04/09/24
dapagliflozin propanediol 10 mg tablet 10 mg PO DAILY #30 tabs 04/11/24
spironolactone 25 mg tablet 25 mg PO DAILY #30 tabs 04/11/24
aspirin 81 mg tablet,delayed release 81 mg PO DAILY #1 tab 05/03/24
sacubitril 49 mg-valsartan 51 mg tablet (Entresto) 1 tab PO BID 05/03/24
furosemide 20 mg tablet 20 mg PO DAILY 12/11/24
oxycodone 5 mg tablet 5 mg PO PRN PRN Pain 12/11/24
cyclobenzaprine 5 mg tablet 5 mg PO TID PRN muscle spasm #20 tabs 12/16/24
Home Medication Changes
Pending Results: No
== END 2024-12-16 11:11 | disposition home or self-care (01) ==
LOC: SDS 06:18
PROVIDERS: ATTENDING PHYSICIAN Surgery
DX: C09.9 Malignant neoplasm of tonsil, unspecified (principal); E11.9 Type 2 diabetes mellitus without complications; E66.01 Morbid (severe) obesity due to excess calories; I47.9 Paroxysmal tachycardia, unspecified; Z68.41 Body mass index [BMI] 40.0-44.9, adult; R13.10 Dysphagia, unspecified; Z90.49 Acquired absence of other specified parts of digestive tract; Z46.82 Encounter for fitting and adjustment of non-vascular catheter
CPT/HCPCS: 43653; 80048; 82962; 83036; 85027; 92610

== ENCOUNTER → 2024-12-17 10:39 | Outpatient (REF) | payer MEDICARE, OTHER, SELFPAY ==
[2024-12-17 11:01] LABS: Hematocrit 37.1 % (37.0-47.0); Hemoglobin 12.4 g/dL (12.0-16.0); Mean Corp Hgb Conc. 33.4 g/dL (33.0-37.0); Mean Corpuscular Volume 97.1 fL (81.0-99.0); Nucleated Red Blood Cells % 0 %; Platelet Count 108 10^3/uL (130-400); Red Cell Dist. Width 14.3 % (11.5-14.5)
[2024-12-17 11:41] LABS: AST (SGOT) 17 U/L (14-36); Albumin 3.8 g/dl (3.5-5.0); Alkaline Phosphatase 97 U/L (38-126); Blood Urea Nitrogen 14 mg/dl (7-17); Calcium 9.5 mg/dl (8.4-10.2); Carbon Dioxide 28 mmol/L (22-30); Chloride 104 mmol/L (98-107); Glucose 199 mg/dl (70-99); Magnesium 1.2 mg/dl (1.6-2.3); Potassium 4.2 mmol/L (3.5-5.1); Sodium 138 mmol/L (135-145); Total Protein 6.3 g/dl (6.3-8.2); eGFR > 60.00
[2024-12-17 11:42] LABS: ALT (SGPT) 16 U/L (0-35)
== END ==
LOC: REG 10:39
PROVIDERS: ATTENDING PHYSICIAN Internal Medicine Hematology & Oncology; FAMILY PHYSICIAN Family Medicine
DX: C64.1 Malignant neoplasm of right kidney, except renal pelvis (principal); C09.0 Malignant neoplasm of tonsillar fossa
CPT/HCPCS: 36415; 80053; 83735; 85025

== ENCOUNTER → 2024-12-23 14:00 | Outpatient (REF) | payer MEDICARE, OTHER, SELFPAY ==
[2024-12-23 15:10] LABS: Hematocrit 35.2 % (37.0-47.0); Hemoglobin 12.1 g/dL (12.0-16.0); Mean Corp Hgb Conc. 34.4 g/dL (33.0-37.0); Mean Corpuscular Volume 94.9 fL (81.0-99.0); Nucleated Red Blood Cells % 0 %; Platelet Count 113 10^3/uL (130-400); Red Cell Dist. Width 14.3 % (11.5-14.5)
[2024-12-23 15:16] LABS: Blood Urea Nitrogen 19 mg/dl (7-17); Calcium 8.3 mg/dl (8.4-10.2); Carbon Dioxide 26 mmol/L (22-30); Chloride 100 mmol/L (98-107); Glucose 115 mg/dl (70-99); Magnesium 1.2 mg/dl (1.6-2.3); Potassium 3.4 mmol/L (3.5-5.1); Sodium 134 mmol/L (135-145); eGFR > 60.00
== END ==
LOC: OIDL 14:00
PROVIDERS: ATTENDING PHYSICIAN Nurse Practitioner Primary Care
DX: C64.1 Malignant neoplasm of right kidney, except renal pelvis (principal); C09.0 Malignant neoplasm of tonsillar fossa; R31.9 Hematuria, unspecified
CPT/HCPCS: 80048; 83735; 85025

== ENCOUNTER 2024-12-31 19:52 | Inpatient (IN) | payer MEDICARE, OTHER, SELFPAY ==
[2024-12-31] VITALS (8 sets, daily range): BP systolic 110–136; BP diastolic 51–93; BMI 42.0; BMI 40.4
[2024-12-31] MEDS: DILAUDID 0.5 MG IV ×2 (14:25→16:26)
[2024-12-31] MEDS: NSS 500 IV (14:25)
[2024-12-31 14:38] LABS: Hematocrit 34.1 % (37.0-47.0); Hemoglobin 11.8 g/dL (12.0-16.0); Mean Corp Hgb Conc. 34.6 g/dL (33.0-37.0); Mean Corpuscular Volume 94.5 fL (81.0-99.0); Nucleated Red Blood Cells % 0 %; Platelet Count 144 10^3/uL (130-400); Red Cell Dist. Width 14.4 % (11.5-14.5)
[2024-12-31 14:49] LABS: ALT (SGPT) 14 U/L (0-35); AST (SGOT) 19 U/L (14-36); Albumin 3.7 g/dl (3.5-5.0); Alkaline Phosphatase 95 U/L (38-126); Blood Urea Nitrogen 19 mg/dl (7-17); Calcium 8.1 mg/dl (8.4-10.2); Carbon Dioxide 28 mmol/L (22-30); Chloride 96 mmol/L (98-107); Glucose 125 mg/dl (70-99); Potassium 3.2 mmol/L (3.5-5.1); Sodium 131 mmol/L (135-145); Total Protein 6.1 g/dl (6.3-8.2); eGFR > 60.00
[2024-12-31] MEDS: OFIRMEV 100 IV (14:53)
--- NOTE | 2024-12-31 15:23 | CON.GS ---
Medical History
-
Chief Complaint: G-tube site pain and redness
History of Present Illness:
Patient is a 74 yo F with a PMH of morbid obesity, depression/anxiety, HTN, HLD, nonsustained V. tach, CHF, NIDDM, chronic back pain, renal cell carcinoma s/p partial nephrectomy c/b incisional hernia s/p repair with mesh, s/p temporal artery
biopsy, s/p laparoscopic cholecystectomy, s/p hysterectomy, s/p tubal ligation, s/p multiple orthopedic and spine procedures. 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 She is not a surgical candidate. She she was
started on chemoXRT back in October. Due to issues with dysphagia she was referred to general surgery by her oncologist for a feeding tube. She underwent a lap assisted G-tube on 12/12/2024. She was recently seen in follow-up on 12/26/2024. She was
tolerating tube feeds at that time with no issues. Ms. Nieto states that on Wednesday 12/27 she developed issues with abdominal pain and tolerating tube feeds. She states that her tube feeds would quickly come back out through her skin opening. She
had issues with flushing. She presented to the ER due to issues with tube feeding as well as abdominal pain at the site of her G-tube. She denies any fevers or generalized abdominal pain. She continues to have issues with dysphagia and is able to
tolerate a small amount of liquids. She has 2 doses of chemotherapy and 9 doses of radiation remaining. She is scheduled to complete her course next week.
Past Medical History
Past Medical History: Arrhythmias (Nonsustained V. tach), CHF, HTN, Hypercholesterolemia, NIDDM, Psychiatric (Depression/anxiety) and Other (Obesity, chronic pain)
Past Surgical History: Cholecystectomy, Gynecological (Hysterectomy, tubal ligation), Hernia Repair (Incisional hernia repair at the site of partial nephrectomy), Orthopedic, Urological (Partial nephrectomy) and Other (Laparoscopic gastrostomy tube
placement on 12/12/2024)
Social History
Tobacco: Non-Smoker
Alcohol: None
Drug: None
Personal:
Living: Alone
Family History
Family History: Reviewed & Not Pertinent
Allergies / Home Medications
Allergy/AdvReac Type Severity Reaction Status Date / Time
adhesive Allergy Rash, Verified 12/31/24 12:21
blisters
bupropion (From Wellbutrin) Allergy Tinnitus Verified 12/31/24 12:21
citalopram Allergy Tachycardia Verified 12/31/24 12:21
hydrochlorothiazide Allergy Unknown Verified 12/31/24 12:21
lisinopril Allergy Mouth and Verified 12/31/24 12:21
throat
swelling
Macrolide Antibiotics Allergy Unknown Verified 12/31/24 12:21
metformin Allergy stomach Verified 12/31/24 12:21
pain and
diarrhea
nitrofurantoin (From Allergy pt can't Verified 12/31/24 12:21
Macrodantin) remember
reaction
Sulfa (Sulfonamide Allergy Rash Verified 12/31/24 12:21
Antibiotics)
�Medication �Instructions �Recorded �Confirmed �Type
metoprolol succinate 50 mg 50 mg PO DAILY Blood pressure 10/09/19 12/31/24 History
tablet,extended release 24 hr
cholecalciferol (vitamin D3) 50 50 mcg PO DAILY Supplement ##0 08/20/20 12/31/24 History
mcg (2,000 unit) tablet (Vitamin
D3)
cyanocobalamin (vitamin B-12) 1,000 mcg PO DAILY Supplement ##0 08/20/20 12/31/24 History
1,000 mcg tablet
alprazolam 0.5 mg tablet 0.5 mg PO BID 12/11/21 12/31/24 History
atorvastatin 10 mg tablet 10 mg PO DAILY High Cholesterol 04/09/24 12/31/24 History
desvenlafaxine succinate 25 mg 25 mg PO DAILY Mental 04/09/24 12/31/24 History
tablet,extended release 24 hr Health/Anxiety
gabapentin 600 mg tablet 600 mg PO DAILY Neurological 04/09/24 12/31/24 History
Condition
insulin glargine 100 unit/mL (3 50 unit SC HS Diabetes 04/09/24 12/31/24 History
mL) subcutaneous pen (Basaglar
KwikPen U-100 Insulin)
insulin lispro 100 unit/mL 22 unit SC AC Diabetes 04/09/24 12/31/24 History
subcutaneous pen (Admelog SoloStar
U-100 Insulin lispro)
lidocaine 5 % topical patch 2 patch topical HSPRN PRN both feet 04/09/24 12/31/24 History
metoclopramide HCl 5 mg tablet 5 mg PO AC N/V 04/09/24 12/31/24 History
omeprazole 40 mg capsule,delayed 40 mg PO DAILY Gastrointestinal 04/09/24 12/31/24 History
release Issue
dapagliflozin propanediol 10 mg 10 mg PO DAILY #30 tabs 04/11/24 12/31/24 Rx
tablet
spironolactone 25 mg tablet 25 mg PO DAILY #30 tabs 04/11/24 12/31/24 Rx
aspirin 81 mg tablet,delayed 81 mg PO DAILY #1 tab 05/03/24 12/31/24 Rx
release
sacubitril 49 mg-valsartan 51 mg 1 tab PO BID 05/03/24 12/31/24 History
tablet (Entresto)
oxycodone 5 mg tablet 5 mg PO Q4HPRN PRN severe pain 12/11/24 12/31/24 History
cyclobenzaprine 5 mg tablet 5 mg PO TID PRN muscle spasm #20 12/16/24 12/31/24 Rx
tabs
furosemide 40 mg tablet 40 mg PO DAILY 12/31/24 12/31/24 History
ondansetron HCl 8 mg tablet 8 mg PO TIDPRN PRN nausea 12/31/24 12/31/24 History
Review of Systems
-
A 10 point review of systems was completed, and was negative except as per HPI.
Physical Exam
Vital Signs
Temp Pulse Resp BP Pulse Ox
100.8 F H 81 16 132/85 98
12/31/24 14:28 12/31/24 12:17 12/31/24 12:17 12/31/24 12:17 12/31/24 12:17
Body Mass Index (BMI) 0.0
Lab Results
12/31/24 14:16
12/31/24 14:16
WBC 5.4 10^3/uL (4.8-10.8) 12/31/24 14:16
Hgb 11.8 g/dL (12.0-16.0) L 12/31/24 14:16
Hct 34.1 % (37.0-47.0) L 12/31/24 14:16
Plt Count 144 10^3/uL (130-400) 12/31/24 14:16
Abs Immat Gran (auto) 0.0 10^3/uL (0-0.05) 12/31/24 14:16
Neutrophils % 78.8 % (42.2-75.2) H 12/31/24 14:16
Physical Exam
General: No Apparent Distress
HEENT: Normocephalic, Anicteric and Other (Plethora and erythema of the neck and chest)
Respiratory: Non Labored Respirations
Cardiac: Regular Rhythm
GI: Soft, Tender (Overlying gastrostomy tube site), Incisions (Gastrostomy tube pulled significantly back, dressing taken down, tube fell out of the abdominal wall with balloon completely down, surrounding erythema and induration, purulence and
feeding tube evacuated through gastrostomy tube site, unable to safely replace tube with a 16 Far[place] Mendoza catheter), Obese and Other (No diffuse peritonitis)
Musculoskeletal: No Edema
Skin: Warm and Dry
Neuro: Nonfocal/Grossly Intact
Data Reviewed
-
Labs: Labs Reviewed by me
Assessment / Plan
-
Patient is a 74 yo F p/w malpositioned gastrostomy tube and localized infection at insertion site
Gastrostomy tube found to be completely retracted into the subcutaneous tissues with the balloon completely down- time course likely 5 days ago given her history. Unfortunately, unable to replace her gastrostomy tube or a Mendoza catheter - delay in
presentation and length of the abdominal wall. Recommend CT scan with IV contrast to assess for intraabdominal component to her infection and better define her abdominal wall infection. Likely local wound care with WTD dressing BID. Recommend
broad spectrum abx for now; wound culture obtained from site. Would aler Heme/Onc to her admission and situation, unlikely that she will be able to get any more treatment. Will need to monitor her swallowing; may need a course of TPN until this
improves. Ms. 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 All questions answered.
-- CT Abdomen/Pelvis with IV contrast
-- NPO, IVF
-- Abx: Vanco and Zosyn, f/u culture
-- Local wound care with WTD gauze packing BID and cover with dry gauze.
-- GERMAN INSTRUCTOR eval, pending these results she may need TPN
[2024-12-31] MEDS: ZOSYN 50 IV ×2 (15:37→22:46)
--- NOTE | 2024-12-31 17:10 | ED.GENMED ---
History of Present Illness
General
Chief Complaint: Catheter/Tube Problem
Source: patient and family
Exam Limitations: none
Time Seen by Provider: 12/31/24 13:50
History of Present Illness
History of Present Illness:
74-year-old female noted difficulties with her GJ tube over the weekend. Difficulty infusing. Drainage. Pain. Symptoms are moderate in nature.
Past History
Past History
ED Past Medical History: Cancer, HTN, Hypercholesterolemia, NIDDM, Psychiatric (Anxiety/depression) and Other (Is post recent knee replacement, hypertension, diabetes)
ED Past Surgical History: Cholecystectomy, Gynecological, Orthopedic and Other (Hernia repair)
Social History
Tobacco: Non-smoker
Alcohol: None
Drug: None
Personal:
Living: with family
Employment: Employed
Family History
Family History: Diabetes
Review of Systems
Review of Systems
All Other Systems: Not applicable
Constitutional: Reports fever and chills
Respiratory: Reports no symptoms
ABD/GI: Denies abdominal pain
Phy Exam
Physical Exam
Physical Exam:
GENERAL: Alert and oriented in no apparent distress
EYE: Orbits normal.
NECK: Supple. Erythema to the skin of the neck
ENT: Pharynx without erythema
CARDIAC: Regular rate and rhythm without any obvious murmurs.
LUNGS: Clear breath sounds,normal. Port right upper chest wall
ABDOMEN: Soft, GJ tube barely in place. Clearly malposition. Drainage likely purulent around the site. Erythema surrounding the site. Induration at 3:00. Tenderness.
NEUROLOGICAL: Alert and oriented , grossly non-focal
SKIN: Warm and dry
MUSCULOSKELETAL: No edema,no deformity.Good color
PSYCH: Normal and appropriate interaction.
Course
Orders/Labs/Results
Orders:
Orders
12/31/24 13:58
IV Insert/Care/Rem.- Treatment PRN
0.9% Sodium Chloride 500 ml [Nss] 500 ml IV BOLUS
Iohexol [Omnipaque] See Protocol PO NOW STA
12/31/24 14:07
CT Abd/Pel (IV only)-[facility] only Urgent
Comment:
Reason For Exam: Malfunctioning GJ tube. Drainage/induration
12/31/24 14:11
HYDROmorphone [Dilaudid] 0.5 mg IV NOW STA
12/31/24 14:16
Complete Blood Count/With Diff Urgent
Comprehensive Metabolic Panel Urgent
12/31/24 14:36
Urinalysis Reflex To Culture Urgent
Acetaminophen 1000MG/100Ml [Ofirmev] 1,000 mg in 100 ml IV ONCE
Acetaminophen IV Indication:: Targeted Temp Management
12/31/24 14:37
Piperacillin/Tazo 3.375 Gram [Zosyn] 3.375 gram in 50 ml IV NOW
12/31/24 14:45
Blood Culture Q30M
KYLE Source: Blood/Venous
Specimen Description:
12/31/24 15:34
Blood Culture Q30M
KYLE Source: Blood/Venous
Specimen Description:
12/31/24 16:18
Vancomycin [Vancocin] 2,000 mg 0.9% Sodium Chloride 500 ml [Nss] 500 ml IV NOW
12/31/24 16:25
HYDROmorphone [Dilaudid] 0.5 mg IV NOW STA
12/31/24 16:26
Wound Care As Directed
Location of Wound: LUQ abdomen
Treatment of Wound: Pack old G-tube site with Iodoform packing strips and cover with dry gauze BID
12/31/24 16:27
Wound Culture [Wound/Abscess/Other Culture] Routine
KYLE Source: Abdomen
Specimen Description:
Date Specimen was Collected: 12/31/24
Time Specimen was Collected: 16:33
HYDROmorphone [Dilaudid] 0.5 mg IV NOW STA
12/31/24 16:38
Vancomycin [Vancocin] 2,000 mg 0.9% Sodium Chloride 500 ml [Nss] 500 ml IV NOW
Abnormal Lab Results
12/31/24
14:16
RBC 3.61 L 10^6/uL
(4.20-5.40)
Hgb 11.8 L g/dL
(12.0-16.0)
Hct 34.1 L %
(37.0-47.0)
MCH 32.7 H pg
(27.0-31.0)
Absolute Lymphs (auto) 0.3 L 10^3/uL
(1.2-3.4)
Absolute Monos (auto) 0.8 H 10^3/uL
(0.1-0.6)
Immature Gran % 0.6 H %
(0-0.5)
Neutrophils % 78.8 H %
(42.2-75.2)
Lymphocytes % 5.7 L %
(20.5-51.1)
Monocytes % 13.9 H %
(1.7-9.3)
Sodium 131 L mmol/L
(135-145)
Potassium 3.2 L mmol/L
(3.5-5.1)
Chloride 96 L mmol/L
(98-107)
BUN 19 H mg/dl
(7-17)
Glucose 125 H mg/dl
(70-99)
Calcium 8.1 L mg/dl
(8.4-10.2)
Total Protein 6.1 L g/dl
(6.3-8.2)
12/31/24 14:16
12/31/24 14:16
Vital Signs
Initial and Last Documented VS:
Initial Vital Signs
Temp Pulse Resp BP Pulse Ox
98.3 F 81 16 132/85 98
12/31/24 12:17 09/02/25 12:17 12/31/24 12:17 12/31/24 12:17 12/31/24 12:17
Last Documented Vital Signs
Temp Pulse Resp BP Pulse Ox
100.8 F H 81 16 132/85 98
12/31/24 14:28 12/31/24 12:17 12/31/24 12:17 12/31/24 12:17 12/31/24 17:11
MDM/Problems Addressed
Differential Diagnosis Includes:
Concerning for misplaced GJ tube. Surgery came in and actually the tube was essentially in the abdominal wall soft tissue. Tube was removed. Surgery was unable to replace. High suspicion clinically for local infection. Antibiotics ordered.
Low-grade fever developed here. CT scan reviewed.
*Radiology
Radiology exam reviewed: radiology read reviewed (Subcutaneous gas abdominal wall thickening stranding superficial infectious process likely related to the gastrostomy tube)
*Pulse Oximetry
SaO2: 98
Oxygen Mode of Delivery: Room air
Patient hypoxic: no
*Underlay Stitcher Interpretation
Rate: normal
Interpretation: normal
Heart Rate: 88
Rhythm: sinus
*Critical Care Note
Total Time (30-74mins, 75-104mins- exclusive of procedures): Not Applicable
Data Reviewed
Review of Other/Old Records Reveals: Labs, Records and Testing
ED Attending Note
-
Portions of this chart may have been created with voice recognition software.� Occasional wrong word or��sound alike� substitutions may have occurred due to the inherent limitations of voice recognition software.
Discharge Plan
Departure
Patient Disposition: Admit
Date of Disposition: 12/31/24
Time of Disposition: 17:10
Presentation/result/management discussed w/ accepting MD/DO: General Surgery
Discharge Problem:
Abdominal wall infection, Likely secondary to dislodged GJ tube, Hypokalemia
Prescriptions:
No Action
metoprolol succinate 50 MG tablet extended release 24 hr
50 mg PO DAILY
cyanocobalamin (vitamin B-12) 1,000 mcg Tablet
1,000 mcg PO DAILY Qty: 0
cholecalciferol (vitamin D3) [Vitamin D3] 50 mcg (2,000 unit) Tablet
50 mcg PO DAILY Qty: 0
alprazolam 0.5 mg Tablet
0.5 mg PO BID
gabapentin 600 mg Tablet
600 mg PO DAILY
atorvastatin 10 mg Tablet
10 mg PO DAILY
omeprazole 40 mg Capsule,Delayed Release(Dr/Ec)
40 mg PO DAILY
metoclopramide HCl 5 mg Tablet
5 mg PO AC
lidocaine 5 % Adhesive Patch,Medicated
2 patch TOPICAL HSPRN PRN (Reason: both feet)
insulin lispro [Admelog SoloStar U-100 Insulin] 100 unit/mL Insulin Pen
22 unit SC AC
insulin glargine [Basaglar KwikPen U-100 Insulin] 100 unit/mL (3 mL) Insulin Pen
50 unit SC HS
desvenlafaxine succinate 25 mg Tablet Extended Release 24 Hr
25 mg PO DAILY
spironolactone 25 mg Tablet
25 mg PO DAILY Qty: 30 0RF
dapagliflozin propanediol 10 mg Tablet
10 mg PO DAILY Qty: 30 0RF
sacubitril-valsartan [Entresto] 49-51 mg Tablet
1 tab PO BID
aspirin 81 mg tablet,delayed release (DR/EC)
81 mg PO DAILY Qty: 1 0RF
oxycodone 5 mg Tablet
5 mg PO Q4HPRN PRN (Reason: severe pain)
cyclobenzaprine 5 mg tablet
5 mg PO TID PRN (Reason: muscle spasm) Qty: 20 0RF
furosemide 40 mg tablet
40 mg PO DAILY
ondansetron HCl 8 mg tablet
8 mg PO TIDPRN PRN (Reason: nausea)
cisplatin 1 mg/mL Solution
86 mg IV DIRECTED
Referrals:
Joanna Bal MD [Family Provider, Family Practice]
Interventions
Interventions:
*Risk Screen - Suicide Last Done: 12/31/24 12:17
*General Assessment Last Done: 12/31/24 14:19
*Neglect/Abuse Screening Last Done: 12/31/24 12:17
*ED- Fall Risk Assessment Last Done: 12/31/24 14:20
*ED COVID-19 Vaccine History Last Done: 12/31/24 14:20
[id number] Assessment Last Done: 12/31/24 13:55
Discharge Date and Time
Print Language: EAST TIMOR[place]
[2024-12-31] MEDS: VANCOCIN 540 MG IV (17:16)
--- NOTE | 2024-12-31 19:18 | HPS.HSE ---
Family Physician
-
Family Physician: Joanna Bal
Chief Complaint
-
Redness and Leaking around G-Tube Site
History of Present Illness
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
around her G-Tube site. Patient had a laparoscopic-assisted gastrostomy tube placed on December 12 due to worsening dysphagia in the setting of tonsillar cancer. Patient reports on Dec 27 she developed abdominal pain and problems tolerating her
tube feeds. She notes feedings were coming back out through the opening in her skin. She presents today due to increasing pain and redness around the G Tube. Upon arrival to the emergency department was noted to have a fever of 100.8F. She was
evaluate by surgery in the emergency department who was unable to replace her gastrostomy tube in the emegency department.
Medical History
Past Medical History
Past Medical History: Reports Other
Additional Past Medical History:
Primary Tonsillar Squamous Cell Carcinoma
Chronic HFrEF
Dilated Cardiomyopathy
Diabetes Mellitus, Type II with Diabetes Neuropathy
Essential Hypertension
Depression
Osteoarthritis
Past Surgical History: Reports Other
Additional Past Surgical History:
Bilateral Partial Nephrectomy
Cholecystectomy
Hysterectomy
Carpal Tunnel Release
Bilateral Hip Replacements
Bilateral Total Knee Replacements
Social History
Tobacco: Non-smoker
Alcohol: None
Drug: None
Personal:
Living: Alone
Family History
Family History: Not pertinent
Allergies / Home Medications
Allergies reflects when Allergies were last updated in [employer].
Home Medications with original date entered in [employer]
Allergy/Medication List:
Allergies
Allergy/AdvReac Type Severity Reaction Status Date / Time
adhesive Allergy Rash, Verified 12/31/24 12:21
blisters
bupropion (From Wellbutrin) Allergy Tinnitus Verified 12/31/24 12:21
citalopram Allergy Tachycardia Verified 12/31/24 12:21
hydrochlorothiazide Allergy Unknown Verified 12/31/24 12:21
lisinopril Allergy Mouth and Verified 12/31/24 12:21
throat
swelling
Macrolide Antibiotics Allergy Unknown Verified 12/31/24 12:21
metformin Allergy stomach Verified 12/31/24 12:21
pain and
diarrhea
nitrofurantoin (From Allergy pt can't Verified 12/31/24 12:21
Macrodantin) remember
reaction
Sulfa (Sulfonamide Allergy Rash Verified 12/31/24 12:21
Antibiotics)
Home Medications
metoprolol succinate 50 mg tablet,extended release 24 hr 50 mg PO DAILY Blood pressure 10/09/19
cholecalciferol (vitamin D3) 50 mcg (2,000 unit) tablet (Vitamin D3) 50 mcg PO DAILY Supplement ##0 08/20/20
cyanocobalamin (vitamin B-12) 1,000 mcg tablet 1,000 mcg PO DAILY Supplement ##0 08/20/20
alprazolam 0.5 mg tablet 0.5 mg PO BID 12/11/21
atorvastatin 10 mg tablet 10 mg PO DAILY High Cholesterol 04/09/24
desvenlafaxine succinate 25 mg tablet,extended release 24 hr 25 mg PO DAILY Mental Health/Anxiety 04/09/24
gabapentin 600 mg tablet 600 mg PO DAILY Neurological Condition 04/09/24
insulin glargine 100 unit/mL (3 mL) subcutaneous pen (Basaglar KwikPen U-100 Insulin) 50 unit SC HS Diabetes 04/09/24
insulin lispro 100 unit/mL subcutaneous pen (Admelog SoloStar U-100 Insulin lispro) 22 unit SC AC Diabetes 04/09/24
lidocaine 5 % topical patch 2 patch topical HSPRN PRN both feet 04/09/24
metoclopramide HCl 5 mg tablet 5 mg PO AC N/V 04/09/24
omeprazole 40 mg capsule,delayed release 40 mg PO DAILY Gastrointestinal Issue 04/09/24
dapagliflozin propanediol 10 mg tablet 10 mg PO DAILY #30 tabs 04/11/24
spironolactone 25 mg tablet 25 mg PO DAILY #30 tabs 04/11/24
aspirin 81 mg tablet,delayed release 81 mg PO DAILY #1 tab 05/03/24
sacubitril 49 mg-valsartan 51 mg tablet (Entresto) 1 tab PO BID 05/03/24
oxycodone 5 mg tablet 5 mg PO Q4HPRN PRN severe pain 12/11/24
cyclobenzaprine 5 mg tablet 5 mg PO TID PRN muscle spasm #20 tabs 12/16/24
cisplatin 1 mg/mL intravenous solution 86 mg IV DIRECTED throat cancer 12/31/24
furosemide 40 mg tablet 40 mg PO DAILY 12/31/24
ondansetron HCl 8 mg tablet 8 mg PO TIDPRN PRN nausea 12/31/24
Review of Systems
-
A 12 point ROS was completed and negative except as noted: Yes
Constitutional: Reports Fever
Respiratory: Denies Cough or Trouble Breathing
Cardiac: Denies Chest Pain or Palpitations
Physical Exam
Vital Signs
Vital Signs
Temp Pulse Resp BP Pulse Ox
100.8 F H 81 16 132/85 98
12/31/24 14:28 12/31/24 12:17 12/31/24 12:17 12/31/24 12:17 12/31/24 17:11
Physical Exam
General: Comfortable, Conversant and Morbidly Obese
HEENT: Anicteric, Moist mucous membranes and Other (Signifcant erythema to right neck region related to radiation treatments)
Respiratory: Clear and Non Labored Respirations
Cardiac: S1/S2 and Regular Rhythm
GI: Soft and Other (Gastrostomy tube site covered in gauze with surrounding erythema and increased warmth to touch )
Rectal: Deferred by Provider
Musculoskeletal: No Clubbing, No Cyanosis and No Edema
Skin: Warm and Dry
Neuro: Awake, Alert, Oriented and Nonfocal/grossly intact
Psych: Anxious
Laboratory Results
-
12/31/24 14:16
12/31/24 14:16
Laboratory Results
Total Bilirubin 0.9 mg/dl (0.2-1.3) 12/31/24 14:16
AST 19 U/L (14-36) 12/31/24 14:16
ALT 14 U/L (0-35) 12/31/24 14:16
Alkaline Phosphatase 95 U/L (38-126) 12/31/24 14:16
Data Reviewed
-
CT Scan: Report Reviewed by me
Lab Data: Labs Reviewed by me
Impression/Plan
-
Abdominal Wall Cellulitis
-Continue Vancomycin and Zosyn
-Await wound and blood cultures
Dislodged Gastrotomy Tube
-Surgery Consulted - Tube unable to be replaced in ED
-Continue NPO
-Consult Speech Therapy
Primary Tonsillar Squamous Cell Carcinoma, currently undergoing Chemotherapy and Radiayion
-Consult Oncology
Chronic HFrEF
Dilated Cardiomyopathy
-Diuretics on hold
-Hold Entresto and dapagliflozin
-Monitor Daily Weights
Diabetes Mellitus, Type II with Diabetic Neuropathy
-Hold lispro
-Half usual dose of glargine
-Monitor sugars and continue coverage insulin
Essential Hypertension
-Oral meds on hold
-Add hydralazine PRN
-Monitor blood pressure
Depression / Anxiety
-Continue Valium IV PRN until able to resume oral alprazolam
DVT Proph: Lovenox
Code Status: Full Code
[2024-12-31] MEDS: VALIUM INJECTION 2 MG IV (19:53)
--- NOTE | 2024-12-31 21:06 | W.PN.UPDATE ---
Update Note
Progress Note Update
This note serves as an addendum to the H&P by director of outpatient services Janes SIDHU
�
HPI
74F HX DM, CHF, HTN, tonsillar squamous cell CA, on chemo and XRT, seen at ER:
- s/p recent Laparoscopic assisted G-tube placement 12/12/24 for poressive dysphgia
- redness and leaking around her G-Tube site.
- Dec 27 she developed abdominal pain and problems tolerating her tube feeds.
- notes feedings were coming back out through the opening in her skin.
- increasing pain and redness around the G Tube.
- was evaluate by surgery in the ER who was unable to replace her gastrostomy tube in the ER department.
At ER:
fever of 100.8F.
Relevant VS
Temp Pulse Resp BP Pulse Ox
98.0 F 66 20 127/51 95
12/31/24 19:38 12/31/24 19:38 12/31/24 19:38 12/31/24 20:00 12/31/24 20:19
PE
General: Morbidly Obese Calss III BMI 42
HEENT: Signifcant erythema to right neck region related to XRT
Respiratory: Clear and Non Labored Respirations
Cardiac: S1/S2 and RRR
GI: Soft- Gastrostomy tube site covered in gauze with surrounding erythema and increased warmth to touch
Rectal: Deferred by Provider
Skin: Warm and Dry
Neuro: Awake, Alert, Oriented and Nonfocal/grossly intact
Psych: Anxious
Relevant Data
Abnormal Lab Results
12/31/24
14:16
RBC 3.61 L
Hgb 11.8 L
Hct 34.1 L
MCH 32.7 H
Absolute Lymphs (auto) 0.3 L
Absolute Monos (auto) 0.8 H
Immature Gran % 0.6 H
Neutrophils % 78.8 H
Lymphocytes % 5.7 L
Monocytes % 13.9 H
Sodium 131 L
Potassium 3.2 L
Chloride 96 L
BUN 19 H
Glucose 125 H
Calcium 8.1 L
Total Protein 6.1 L
ASSESSMENT & PLAN
Dislodged Gastrotomy Tube
G tube malfunction prior to dislodged G tube
Infected G Tube tract complicated local abdominal Wall Cellulitis
- Failed attempted Mendoza tube placement to keep the tract open
- Vancomycin and Zosyn
- Await wound and BCx
- Surgery Consulted - Tube unable to be replaced in ED
- Continue NPO and IVF
- Consult Speech Therapy
- GS consulted
Primary Tonsillar Squamous Cell Carcinoma
- currently undergoing Chemotherapy and XRT
- Consult Oncology
Chronic HFrEF
Dilated Cardiomyopathy
-Diuretics on hold
-Hold Entresto and dapagliflozin
-Monitor Daily Weights
DMT2 with c Neuropathy
-Hold lispro
-Half usual dose of glargine
-Monitor sugars and continue coverage insulin
Essential Hypertension
-Oral meds on hold
-Add hydralazine PRN
-Monitor blood pressure
Depression / Anxiety
-Continue Valium IV PRN until able to resume oral alprazolam
DVT Proph: Lovenox
Full Code
IP MS
--- NOTE | 2024-12-31 21:52 | PHA.VAN.IN ---
Assessment
- Assessment
Renal Function: Appears similar to baseline
Concomitant Antimicrobials: Piperacillin/tazobactam
AUC Dosing Plan
- Dosing Variables
Dosing Weight (kg): 113.5
Dosing CrCl (ml/min): 102
Vd coefficient (L/kg): 0.6
- Empiric Dosing
Initial / Loading Dose: 2000 MG IV ~ 1715
Maintenance Regimen: 1500 MG IV Q12H
Estimated AUC (mcg*h/mL): 528
Estimated Peak (mcg*h/mL): 33.5
Estimated Trough (mcg/ml): 13.2
Estimated Half Life (H): 7.8
- Monitoring
No levels ordered at this time: Consider levels in next few day
Pharmacokinetics Vancomycin I
- -
Patient Age: 74
Patient Sex: Female
Vancomycin Day #: 1
Indication: Skin And Soft Tissue
Requesting Provider: Rosalino Lee
Pertinent Antimicrobial Allergies:
macrolide unkown reaction
sulfa w. rash
Height / Weight:
Height 5 ft 6 in
Actual Weight 113.483 kg
Pertinent Past Medical History: DM, tonsillar squamous cell carcinoma currently undergoing chemo &rad
- Vital Signs / Lab Results
Temp Pulse Resp BP Pulse Ox
98.3 F 73 18 135/53 94
12/31/24 21:08 12/31/24 21:08 12/31/24 21:08 12/31/24 21:08 12/31/24 21:08
Lab Results - Hematology
12/31/24
14:16
WBC 5.4
Lab Results - Chemistry
12/31/24
14:16
BUN 19 H
Creatinine 0.6
Albumin 3.7
[2024-12-31 22:10] LABS: Glucose - Point of Care 108 mg/dl (70-99)
--- NOTE | 2024-12-31 22:18 | PTCARENOTE ---
Pt transferred to 4w. Pt pulled over from stretcher to bed d/t not being able to walk d/t abd. pain. Pt AAOx3. oriented to room and unit. Safety measures in place, call hill within reach.
[2024-12-31] MEDS: NSS with KCL 20 MEQ 1000 IV (22:44)
[2024-12-31] MEDS: LANTUS SC (22:51)
[2024-12-31] MEDS: KCL 270 MEQ IV (23:02)
[2024-12-31] MEDS: NOVOLOG FLEXPEN-MODERATE RESISTANCE SC (23:02)
[2024-12-31] MEDS: DILAUDID 0.25 MG IV (23:14)
[2025-01-01] MEDS: ZOFRAN 4 MG IV ×4 (02:52→23:51)
[2025-01-01] MEDS: DILAUDID 0.25 MG IV ×6 (02:52→23:51)
[2025-01-01] MEDS: ZOSYN 50 IV ×4 (03:13→21:01)
[2025-01-01 05:06] LABS: Urine Character Clear (Clear)
[2025-01-01 05:39] LABS: Glucose - Point of Care 160 mg/dl (70-99)
[2025-01-01 05:47] LABS: Hematocrit 31.3 % (37.0-47.0); Hemoglobin 10.9 g/dL (12.0-16.0); Mean Corp Hgb Conc. 34.8 g/dL (33.0-37.0); Mean Corpuscular Volume 95.1 fL (81.0-99.0); Platelet Count 117 10^3/uL (130-400); Red Cell Dist. Width 14.8 % (11.5-14.5)
[2025-01-01 06:00] VITALS: BMI 40.7
[2025-01-01 06:04] LABS: Urine Red Blood Cell 0-2 /HPF (0-2); Urine White Cell 0-2 /HPF (0-5)
[2025-01-01] MEDS: NOVOLOG FLEXPEN-MODERATE RESISTANCE 1 UNITS SC (06:31)
[2025-01-01] MEDS: VANCOCIN 530 MG IV ×2 (06:32→17:20)
[2025-01-01 07:50] VITALS: BP 113/78
--- NOTE | 2025-01-01 08:08 | CON.ONC ---
Consultation
-
Date Consultation Requested: 12/31/24
Date Consultation Performed: 01/01/25
Requesting Provider: Jennifer Jerry PA-C
Performing Provider: Dr. Billingsley
Reason for Consultation: Tonsillar squamous cell carcinoma
Impression
Impression
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
Type II diabetes mellitus
Chronic heart failure reduced EF
Essential Hypertension
Depression/Anxiety
Plan
Plan
Tonsillar Squamous Cell Carcinoma
-Patient follows with Dr. Romero at [facility], started treatment on 12/03/2024. Receiving Cisplatin weekly
-Most recent radiation on 12/31/2024 prior to admission, was due for chemotherapy on 01/02/2025
-Recommend starting her on dexamethasone swish with Clotrimazole swish for radiation stomatitis/pharyngitis and thrush prophylaxis.
-Recommend following CBC closely during hospital course
-Will continue to follow patient during her hospitalization
-Will monitor
Patient History
History of Present Illness
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
to the ED on 12/31/2024 with redness and leaking around her G-Tube.
On 12/03/2024 she began chemotherapy/radiation treatment at [facility] with Dr. Romero. On 12/12/2024 she had a laparoscopic assisted G-Tube placement for progressive dysphagia. She was seen as a follow up on 12/26/24, at which point she
was tolerating tube feeds without difficulty. On 12/27/2024 she began to develop abdominal pain and was no longer tolerating tube feeds, along with notes that her feeds were coming back out through the opening in her skin. This was accompanied by
increased pain and redness around the G-Tube site. On 12/31/2024 she reported to the ED.
She was evaluated by Surgery in the ED they attempted placement of a duval tube to keep the tract open, but this was not successful. She was started on Vancomycin and Zosyn and was admitted to the hospital for further management.
Today she was tearful and in pain when I went to see her. She was receiving morning pain medication at the time I arrived. She stated she was very nauseous and had vomited up some mucus when she tried to have ice chips. Her pain is both in the right
side of her neck and her abdomen, and she is very sore all over. She reports her most recent round of radiation therapy was yesterday, and she was scheduled for chemotherapy on .
Past-Medical/Surgical History
Type II Diabetes Mellitus
Chronic heart failure with reduced EF
Essential Hypertension
Depression/Anxiety
Tonsillar squamous cell carcinoma (Currently undergoing chemotherapy and radiation)
Patient Medication
�Medication �Instructions �Recorded �Confirmed �Last Taken �Type
metoprolol succinate 50 mg 50 mg PO DAILY Blood pressure 10/09/19 12/31/24 1 Week Ago History
tablet,extended release 24 hr ~12/24/24
cholecalciferol (vitamin D3) 50 50 mcg PO DAILY Supplement ##0 08/20/20 12/31/24 1 Week Ago History
mcg (2,000 unit) tablet (Vitamin ~12/24/24
D3)
cyanocobalamin (vitamin B-12) 1,000 mcg PO DAILY Supplement ##0 08/20/20 12/31/24 1 Week Ago History
1,000 mcg tablet ~12/24/24
alprazolam 0.5 mg tablet 0.5 mg PO BID 12/11/21 12/31/24 1 Week Ago History
~12/24/24
atorvastatin 10 mg tablet 10 mg PO DAILY High Cholesterol 04/09/24 12/31/24 1 Week Ago History
~12/24/24
desvenlafaxine succinate 25 mg 25 mg PO DAILY Mental 04/09/24 12/31/24 1 Week Ago History
tablet,extended release 24 hr Health/Anxiety ~12/24/24
gabapentin 600 mg tablet 600 mg PO DAILY Neurological 04/09/24 12/31/24 12/30/24 History
Condition
insulin glargine 100 unit/mL (3 50 unit SC HS Diabetes 04/09/24 12/31/24 12/30/24 History
mL) subcutaneous pen (Basaglar
KwikPen U-100 Insulin)
insulin lispro 100 unit/mL 22 unit SC AC Diabetes 04/09/24 12/31/24 12/31/24 History
subcutaneous pen (Admelog SoloStar
U-100 Insulin lispro)
lidocaine 5 % topical patch 2 patch topical HSPRN PRN both feet 04/09/24 12/31/24 Unknown History
metoclopramide HCl 5 mg tablet 5 mg PO AC N/V 04/09/24 12/31/24 12/30/24 History
omeprazole 40 mg capsule,delayed 40 mg PO DAILY Gastrointestinal 04/09/24 12/31/24 1 Week Ago History
release Issue ~12/24/24
dapagliflozin propanediol 10 mg 10 mg PO DAILY #30 tabs 04/11/24 12/31/24 1 Week Ago Rx
tablet ~12/24/24
spironolactone 25 mg tablet 25 mg PO DAILY #30 tabs 04/11/24 12/31/24 1 Week Ago Rx
~12/24/24
aspirin 81 mg tablet,delayed 81 mg PO DAILY #1 tab 05/03/24 12/31/24 1 Week Ago Rx
release ~12/24/24
sacubitril 49 mg-valsartan 51 mg 1 tab PO BID 05/03/24 12/31/24 1 Week Ago History
tablet (Entresto) ~12/24/24
oxycodone 5 mg tablet 5 mg PO Q4HPRN PRN severe pain 12/11/24 12/31/24 1 Week Ago History
~12/24/24
cyclobenzaprine 5 mg tablet 5 mg PO TID PRN muscle spasm #20 12/16/24 12/31/24 1 Week Ago Rx
tabs ~12/24/24
cisplatin 1 mg/mL intravenous 86 mg IV DIRECTED throat cancer 12/31/24 12/31/24 12/25/24 History
solution
furosemide 40 mg tablet 40 mg PO DAILY 12/31/24 12/31/24 1 Week Ago History
~12/24/24
ondansetron HCl 8 mg tablet 8 mg PO TIDPRN PRN nausea 12/31/24 12/31/24 12/29/24 History
Active Medications
Generic Name Dose Route Start Last Admin
Trade Name Freq PRN Reason Stop Dose Admin
Acetaminophen 650 mg 12/31/24 20:55
Acetaminophen 650 Mg Rectal Suppository RECTAL 01/28/25 20:54
Q4HPRN PRN
mild pain/fever
Dextrose 12.5 grams 12/31/24 20:55
Dextrose 50% (0.5 Grams/Ml) 50 Ml Syringe IV 01/28/25 20:54
[id number] PRN
hypoglycemia
Protocol
Diazepam 2 mg 12/31/24 20:55
Diazepam 10 Mg/2 Ml Inj IV 01/28/25 20:54
[id number] PRN
anxiety
Enoxaparin Sodium 40 mg 01/01/25 18:00
Enoxaparin Sodium 40 Mg/0.4 Ml Syringe SC 01/29/25 17:59
QPM СВЕТЛАНА
Glucagon 1 mg 12/31/24 20:55
Glucagon 1 Mg Vial IM 01/28/25 20:54
PRN PRN
hypoglycemia
Protocol
Heparin Sodium (Porcine) 500 unit 12/31/24 22:45
Heparin Flush Pf (100 Unit/Ml) 5 Ml Syringe IV 01/28/25 22:44
PER PROTOCOL СВЕТЛАНА
Hydralazine HCl 5 mg 12/31/24 20:55
Hydralazine 20 Mg/Ml Vial IV 01/28/25 20:54
Q4HPRN PRN
SBP>160, or DBP>90
Hydromorphone HCl 0.25 mg 12/31/24 20:55 01/01/25 07:56
Hydromorphone 0.25 Mg/0.5 Ml Syringe IV 01/14/25 20:54 0.25 mg
Q3HPRN PRN Administration
severe pain
Potassium Chloride/Sodium Chloride 20 meq in 1,000 mls @ 60 mls/hr 12/31/24 20:55 12/31/24 22:44
Nss With Kcl 20 Meq IV 1,000 mls
.[id number] СВЕТЛАНА Administration
Piperacillin Sod/Tazobactam Sod 3.375 gram in 50 mls @ 100 mls/hr 12/31/24 22:00 01/01/25 03:13
Zosyn IV 50 mls
Q6H СВЕТЛАНА Administration
Insulin Glargine 25 units/ 0.25 mls @ 0 mls/hr 12/31/24 22:00 12/31/24 22:51
Device SC 01/28/25 21:59 Not Given
HS СВЕТЛАНА
As Directed
Vancomycin HCl 1,500 mg/ 530 mls @ 353.333 mls/hr 01/01/25 06:00 01/01/25 06:32
Sodium Chloride IV 530 mls
Q12H СВЕТЛАНА Administration
Insulin Aspart 0 units 12/31/24 23:00 01/01/25 06:31
Insulin Aspart Moderate Resistance 300 Units/3 Ml Pen.Injctr SC 01/28/25 22:59 1 units
Q6H СВЕТЛАНА Administration
Protocol
Miconazole Nitrate 0 applic 01/01/25 08:00
Miconazole Powder Bottle TOPICAL 01/29/25 07:59
BID СВЕТЛАНА
Ondansetron HCl 4 mg 12/31/24 20:55 01/01/25 02:52
Ondansetron 4 Mg/2 Ml Vial IV 01/28/25 20:54 4 mg
Q6HPRN PRN Administration
NAUSEA/VOMITING
Sodium Chloride 0 flush 12/31/24 20:00
Sodium Chloride 0.9% (Flush) Syringe IV 01/28/25 19:59
PER PROTOCOL СВЕТЛАНА
Review of Systems
-
History Source: Patient
Constitutional: Reports Fever
Respiratory: Reports Trouble Breathing; Denies Cough
Cardiac: Denies Chest Pain
GI: Reports Abdominal Pain, Nausea and Vomiting
Skin: Reports Rash
Physical Exam
-
General: Well Developed, Well Nourished, Pain and Morbidly Obese
Cardiology: Normal Sinus Rhythm, S1 and S2
Skin: Warm, Dry and Rash (There is an area of thickened, dry skin around the circumference of neck extending down towards the chest that is acutely warm to the touch and painful with extension and rotation of the neck. )
Psych: Calm
Labs
Lab Results
WBC 3.9 10^3/uL (4.8-10.8) L 01/01/25 05:08
RBC 3.29 10^6/uL (4.20-5.40) L 01/01/25 05:08
Hgb 10.9 g/dL (12.0-16.0) L 01/01/25 05:08
Hct 31.3 % (37.0-47.0) L 01/01/25 05:08
MCV 95.1 fL (81.0-99.0) 01/01/25 05:08
MCH 33.1 pg (27.0-31.0) H 01/01/25 05:08
MCHC 34.8 g/dL (33.0-37.0) 01/01/25 05:08
RDW 14.8 % (11.5-14.5) H 01/01/25 05:08
Plt Count 117 10^3/uL (130-400) L 01/01/25 05:08
MPV 9.9 fL (7.4-10.4) 01/01/25 05:08
Abs Immat Gran (auto) 0.0 10^3/uL (0-0.05) 12/31/24 14:16
Absolute Neuts (auto) 4.3 10^3/uL (1.4-6.5) 12/31/24 14:16
Absolute Lymphs (auto) 0.3 10^3/uL (1.2-3.4) L 12/31/24 14:16
Absolute Monos (auto) 0.8 10^3/uL (0.1-0.6) H 12/31/24 14:16
Absolute Eos (auto) 0.0 10^3/uL (0-0.7) 12/31/24 14:16
Absolute Basos (auto) 0.0 10^3/uL (0-0.2) 12/31/24 14:16
Immature Gran % 0.6 % (0-0.5) H 12/31/24 14:16
Neutrophils % 78.8 % (42.2-75.2) H 12/31/24 14:16
Lymphocytes % 5.7 % (20.5-51.1) L 12/31/24 14:16
Monocytes % 13.9 % (1.7-9.3) H 12/31/24 14:16
Eosinophils % 0.4 % (0-6) 12/31/24 14:16
Basophils % 0.6 % (0-2) 12/31/24 14:16
Creatinine Cancelled 01/01/25 05:08
Vital Signs
Vital Signs
Temp Pulse Resp BP Pulse Ox
98.2 F 71 18 136/64 99
12/31/24 23:00 12/31/24 23:00 12/31/24 23:00 12/31/24 23:00 12/31/24 23:00
--- NOTE | 2025-01-01 08:53 | VNURNOTE ---
Chart reviewed. Patient is current with [facility]. Will continue to follow hospital course and DC plans.
--- NOTE | 2025-01-01 09:02 | PHA.VAN.FU ---
Vancomycin Assessment / Plan
- Assessment
Renal Function: Stable
Concomitant Antimicrobials: piperacillin/tazoabactam
- Dosing Plan
Continue: Vanc 1500mg Q12H
- Monitoring Plan
No level(s) ordered at this time: consider levels in next few days
- Follow Up
Pharmacy will continue to follow.
Vancomycin Follow UP
- -
Patient Age: 74
Patient Sex: Female
Vancomycin Day #: 2
Indication: Skin And Soft Tissue
Requesting Provider: Rosalino Lee
Pertinent Antimicrobial Allergies:
macrolide - unknown
nitrofurantoin - unknown
sulfonamide antibiotics - rash
Height / Weight:
Height 5 ft 6 in
Actual Weight 114.362 kg
Pertinent Past Medical History: BMI ~41, DM2, Tonsillar SCC
- Vital Signs / Lab Results
Temp Pulse Resp BP Pulse Ox
98.3 F 78 18 113/78 100
01/01/25 07:50 01/01/25 07:50 01/01/25 07:50 01/01/25 07:50 01/01/25 07:50
Lab Results - Hematology
12/31/24 01/01/25
14:16 05:08
WBC 5.4 3.9 L
Lab Results - Chemistry
12/31/24 01/01/25
14:16 05:08
BUN 19 H Cancelled
Creatinine 0.6 Cancelled
Estimated Creat Clear Cancelled
Albumin 3.7
Lab Results - Urine
01/01/25
04:27
Urine Nitrite (Reflex) Negative
Leukocyte Esterase Rfl Negative
Ur Squamous Epith Cells 11-15
[2025-01-01 09:32] LABS: Blood Urea Nitrogen 17 mg/dl (7-17); Calcium 7.8 mg/dl (8.4-10.2); Carbon Dioxide 25 mmol/L (22-30); Chloride 103 mmol/L (98-107); Estimated Creatinine Clearance 102 ml/min; Glucose 170 mg/dl (70-99); Magnesium 1.2 mg/dl (1.6-2.3); Potassium 3.7 mmol/L (3.5-5.1); Sodium 134 mmol/L (135-145); eGFR > 60.00
[2025-01-01] MEDS: DESENEX/MITRAZOL/ZEASORB TOPICAL (09:37)
--- NOTE | 2025-01-01 10:05 | PTOTSP ---
Speech Therapy Swallowing Assessment
Very limited swallow assessment due to nausea and dry heaving even with mention of oral trials. Observed with ice chips only. Oral pharyngeal swallow seems grossly intact without signs of aspiration. Patient also reported no symptoms of pharyngeal
stasis when eating prior to admission as well as when seen by ST during last admission.
Recommend
1. Allow solids and thin liquids per patient tolerance.
2. Meds as tolerated
3. Will follow during acute stay to attempt more complete swallow assessment as patient can tolerate.
4. ST after discharge given ongoing chemo-radiation treatment for tonsillar cancer - ? home care as patient has not been feeling well enough to attend OP sessions.
--- NOTE | 2025-01-01 10:17 | W.PN.HOSP.TC ---
Addendum entered and electronically signed by Shan Cowart DO 01/02/25 13:50:
CDI:
-Pancytopenia due to chemotherapy, continue to monitor CBC
-Stage I buttocks pressure injury, POA
Original Note:
Today's Communication/Plan
-
NPO
Dexamethasone, [place] spray
thrush prophylaxis- Clotrimazole
Monitor cbc, glucose, bmp
Assessment / Plan
Assessment / Plan
#Localized skin and soft tissue infection
-Continue Vancomycin and Zosyn
-Wound, blood cultures- pending
-CT abdomen:There is a focus of subcutaneous gas with adjacent cutaneous thickening and fat stranding which may represent a superficial infectious process and is likely related to reported gastrostomy tube.
-Local wound care: pack with Iodoform packing and cover with dry gauze BID
#Primary tonsillar SCC, Post-radiation stomatitis/pharyngitis
-Consult oncology
-Dexamethasone 1mg PO QID
-Clotrimazole 10mg PO TID- thrush prophylaxis
-[place]
-NPO
-Monitor cbc
#Dislodged Gastrotomy Tube
-Surgery Consulted - Tube unable to be replaced in ED
-Continue NPO
-Speech Language Pathology, Nutrition eval for ?TPN
#Chronic HFrEF
#Dilated Cardiomyopathy
-Diuretics on hold- replete Mg
-Hold Entresto and dapagliflozin
-Monitor Daily Weights
#Diabetes Mellitus, Type II with Diabetic Neuropathy
-Insulin Aspart per protocol
-Insulin Glargine 25U SQ
-Monitor glucose
#Essential Hypertension
-Oral meds on hold
-Hydralazine PRN
-Monitor blood pressure
#Depression / Anxiety
-Continue Valium IV PRN until able to resume oral alprazolam
DVT Proph: Lovenox
Anticipated Discharge: > 48 hours
Subjective/Interval History
-
Date of Service: January 01, 2025
She looks uncomfortable and reports having difficulty swallowing and sore throat. She has abdominal pain. She can pass gas, has normal bms. She had her last dose radiation therapy yesterday. Patient does not want tube to be placed again.
Objective Data
-
Labs:
Laboratory Results
01/01/25 01/01/25
05:08 08:18
WBC 3.9 L
Hgb 10.9 L
Hct 31.3 L
Plt Count 117 L
Sodium Cancelled 134 L
Potassium Cancelled 3.7
Chloride Cancelled 103
Carbon Dioxide Cancelled 25
BUN Cancelled 17
Creatinine Cancelled 0.6
Glucose Cancelled 170 H
Calcium Cancelled 7.8 L
Vital Signs:
Vital Signs
Temp Pulse Resp BP Pulse Ox
98.3 F 78 18 113/78 100
01/01/25 07:50 01/01/25 07:50 01/01/25 07:50 01/01/25 07:50 01/01/25 07:50
I&O
12/31/24 01/01/25 01/02/25
06:59 06:59 06:59
Intake Total 900 / 900
Output Total 450 / 450
Balance 450 / 450
Review of Systems
-
History Source: Patient
Constitutional: Reports No Symptoms
EENT: Reports Sore Throat
Respiratory: Reports No Symptoms
Cardiac: Reports No Symptoms
Abdomen/GI: Reports Abdominal Pain
Breast: Reports No Symptoms
Genitourinary: Reports No Symptoms
Musculoskeletal: Reports No Symptoms
Skin: Reports Rash (neck post radiation)
Neuro: Reports No Symptoms
Endocrine: Reports No Symptoms
Hematologic / Lymphatic: Reports No Symptoms
Physical Exam
-
General: Appears in Distress, Pain and Obese
HEENT: Normocephalic, Atraumatic and Pharyngeal Erythema
Respiratory: Clear to Auscultation
Cardiac: Regular Rhythm
Breast: Deferred by me
GI: Tender and Distended
Rectal: Deferred by Provider
Genito-urinary: Deferred by me
Skin: Warm, Dry and Rash
Neuro: AO x 3
Psych: Agitated
[2025-01-01] MEDS: VALIUM INJECTION 2 MG IV ×2 (10:59→20:57)
--- NOTE | 2025-01-01 11:09 | PTCARENOTE ---
Dressing changed at the bedside by Dr. Cooper. Patient pre-medicated with IV valium and IV dilaudid. Patient tolerated dressing change well.
--- NOTE | 2025-01-01 11:37 | CM ---
campaign manager reviewed patient's chart and met with patient and patient lives in a split level home with 7 steps to enter, patient is independent with adl's and ambulation, patient has walkers and w/c in home, patient drives, patient is current with
[facility].
PCP: Joanna Bal
Pharmacy: [facility] on [facility].
Plan; Home with [facility]
[2025-01-01] MEDS: MAGNESIUM SULFATE 50 IV (11:55)
[2025-01-01 12:04] LABS: Glucose - Point of Care 134 mg/dl (70-99)
[2025-01-01] MEDS: NOVOLOG FLEXPEN-MODERATE RESISTANCE SC ×3 (12:04→23:45)
[2025-01-01] MEDS: DECADRON 1 MG PO ×3 (12:05→21:03)
[2025-01-01 12:09] VITALS: BMI 40.7
[2025-01-01] MEDS: OASIS 2 SPRAY PO (12:10)
--- NOTE | 2025-01-01 13:12 | W.PN.GS2 ---
Today's Communication / Plan
-
-- COLLECTOR OF PORT eval, nutrition eval for possible TPN
-- Abx: Vanco and Zosyn, f/u cultures
-- Local wound care: pack with Iodoform packing and cover with dry gauze BID
Assessment / Plan
-
Patient is a 74 yo F p/w displaced gastrostomy tube with localized skin and soft tissue infection
G-tube has been since removed. CT scan demonstrates no evidence of any intra-abdominal component to her infection. Stomach appears to be tethered to abdominal wall without any intraperitoneal leakage or contamination. Improvement lower with local
wound care and antibiotics. Continue to monitor over the next 24 to 48 hours for improvement. May need operative debridement and drainage if continued concern for infection.
COLLECTOR OF PORT eval today to assess ability for oral intake and nutrition. May need a period of PICC and TPN to bridge her to oral tolerance.
-- COLLECTOR OF PORT eval, nutrition eval for possible TPN
-- NPO, IVF
-- Abx: Vanco and Zosyn, f/u cultures
-- Local wound care: pack with Iodoform packing and cover with dry gauze BID
Subjective Data
-
Date of Service: January 01, 2025
Pain overall improved. Continues with some level of discomfort at her G-tube site and in upper abdomen. Mild nausea, but no vomiting. Afebrile since admission to the hospital.
Objective Data
-
Intake and Output
12/31/24 01/01/25 01/02/25
06:59 06:59 06:59
Intake Total 900 / 900
Output Total 450 / 450
Balance 450 / 450
Intake:
Oral fluids 0 / 0
IV fluids (Total) 900 / 900
Output:
Straight cath output 450 / 450
Vital Signs
Temp Pulse Resp BP Pulse Ox
98.3 F 78 18 113/78 100
01/01/25 07:50 01/01/25 07:50 01/01/25 07:50 01/01/25 07:50 01/01/25 07:50
Lab Results
01/01/25 05:08
01/01/25 08:18
Calcium 7.8 mg/dl (8.4-10.2) L 01/01/25 08:18
Magnesium 1.2 mg/dl (1.6-2.3) L 01/01/25 08:18
Total Bilirubin 0.9 mg/dl (0.2-1.3) 12/31/24 14:16
AST 19 U/L (14-36) 12/31/24 14:16
ALT 14 U/L (0-35) 12/31/24 14:16
Alkaline Phosphatase 95 U/L (38-126) 12/31/24 14:16
Total Protein 6.1 g/dl (6.3-8.2) L 12/31/24 14:16
Albumin 3.7 g/dl (3.5-5.0) 12/31/24 14:16
Physical Exam
-
Gen: NAD
Abd: soft, obese, tender overlying G-tube site (improved), ND, non-peritoneal, erythema and induration has improved, continued mild purulent output, packing exchanged to Iodoform strips into deeper pocket, covered with dry gauze and paper tape
Patient has a duval catheter: No
Patient has a central line: No
[2025-01-01] MEDS: NSS with KCL 20 MEQ 1000 IV (13:53)
--- NOTE | 2025-01-01 15:23 | VNURNOTE ---
PM-[facility] resumption of care referral placed in [facility].
[2025-01-01 15:35] VITALS: BP 147/64
[2025-01-01] MEDS: LOVENOX 40 MG SC (16:41)
[2025-01-01] MEDS: OASIS PO ×2 (16:41→21:04)
[2025-01-01] MEDS: MYCELEX TROCHE PO (16:42)
[2025-01-01 19:18] LABS: Glucose - Point of Care 135 mg/dl (70-99)
[2025-01-01] MEDS: DESENEX/MITRAZOL/ZEASORB 1 APPLIC TOPICAL (20:17)
--- NOTE | 2025-01-01 20:50 | PTCARENOTE ---
Pt RR increased and flushed at the face. Provider notified, orders received to give PRN diazepam early.
[2025-01-01] MEDS: MYCELEX TROCHE 10 MG PO (21:03)
[2025-01-01] MEDS: CATHFLO/ACTIVASE 2 MG INTRACATH (21:35)
[2025-01-01 23:00] VITALS: BP 153/70
--- NOTE | 2025-01-01 23:29 | VATNOTE ---
LATE [id number] PROTOCOL INITITATED VIA R SUBQ PRT D/T LACK OF BLOOD RETURN. PIV ACCESS ESTABLISHED DOCUMENTED TO CONTINUE IV THERAPY WHILE CATHFLO DWELLS. PCN AWARE OF INTERVENTION AND PLAN OF CARE. VAT TO FOLLOW
[2025-01-01 23:43] LABS: Glucose - Point of Care 126 mg/dl (70-99)
[2025-01-01] MEDS: LANTUS 0.25 UNITS SC (23:50)
[2025-01-02] MEDS: ZOSYN 50 IV ×4 (04:11→21:44)
[2025-01-02] MEDS: DILAUDID 0.25 MG IV ×4 (04:26→21:44)
[2025-01-02] MEDS: VANCOCIN 530 MG IV ×2 (05:18→17:47)
[2025-01-02 05:29] LABS: Glucose - Point of Care 179 mg/dl (70-99)
[2025-01-02] MEDS: NOVOLOG FLEXPEN-MODERATE RESISTANCE 1 UNITS SC (05:32)
[2025-01-02 05:55] VITALS: BMI 40.7
--- NOTE | 2025-01-02 06:18 | VATNOTE ---
CATHFLO WITHDRAWN AT 0030 AND PRT NOW HAS A GOOD BRISK BLOOD RETURN. PCN AWARE OF OUTCOME.
[2025-01-02 06:40] LABS: Hematocrit 30.9 % (37.0-47.0); Hemoglobin 10.5 g/dL (12.0-16.0); Mean Corp Hgb Conc. 34.0 g/dL (33.0-37.0); Mean Corpuscular Volume 97.8 fL (81.0-99.0); Platelet Count 126 10^3/uL (130-400); Red Cell Dist. Width 15.0 % (11.5-14.5)
[2025-01-02 07:04] LABS: Blood Urea Nitrogen 12 mg/dl (7-17); Calcium 7.9 mg/dl (8.4-10.2); Carbon Dioxide 23 mmol/L (22-30); Chloride 106 mmol/L (98-107); Estimated Creatinine Clearance 102 ml/min; Glucose 161 mg/dl (70-99); Magnesium 1.5 mg/dl (1.6-2.3); Potassium 3.7 mmol/L (3.5-5.1); Sodium 135 mmol/L (135-145); eGFR > 60.00
--- NOTE | 2025-01-02 07:18 | W.PN.HOSP.TC ---
Today's Communication/Plan
-
Start TPN
ID consult- systematic antifungal?
Hydrocortisone 1% BID ointment- Post-radiation dermatitis
Assessment / Plan
Assessment / Plan
#Localized skin and soft tissue infection
-Continue Vancomycin and Zosyn
-Blood cultures- no growth in 24h- pending
-Abdomen wound culture- preliminary
Few Presumptive Proteus species
Few Presumptive Escherichia coli
Few 3rd Gram negative bacilli of two morphotypes
Few Enterococcus species
Many Viridans Streptococcus Group
Few Presumptive Rhina albicans
--Consult ID
-CT abdomen:There is a focus of subcutaneous gas with adjacent cutaneous thickening and fat stranding which may represent a superficial infectious process and is likely related to reported gastrostomy tube.
-Local wound care: pack with Iodoform packing and cover with dry gauze BID
#Primary tonsillar SCC, Post-radiation stomatitis/pharyngitis
-Pancytopenia due to chemotherapy
-Consult oncology
-Dexamethasone 1mg PO QID
-Clotrimazole 10mg PO TID- thrush prophylaxis
-[place]
-NPO w ice chips
-Monitor cbc
-dermatitis [id number]-vaqbnpygp-Cnjhmfxfxtxruz 1% topical BID
#Dislodged Gastrotomy Tube
-Surgery Consulted - Tube unable to be replaced in ED- patient declines tube
-Continue NPO
-Speech Language Pathology, Nutrition eval
-start TPN
#Chronic HFrEF
#Dilated Cardiomyopathy
-Diuretics on hold- replete Mg
-Hold Entresto and dapagliflozin
-Monitor Daily Weights
#Diabetes Mellitus, Type II with Diabetic Neuropathy
-Insulin Aspart per protocol
-Insulin Glargine 25U SQ
-Monitor glucose---if high after tpn will increase the SS to high
#Essential Hypertension
-Oral meds on hold
-Hydralazine PRN
-Monitor blood pressure
#Depression / Anxiety
-Continue Valium IV PRN until able to resume oral alprazolam
DVT Proph: Lovenox
Anticipated Discharge: > 48 hours
Subjective/Interval History
-
Date of Service: January 02, 2025
She is feeling better today. Her sore throat improved, but still comes and goes.
Objective Data
-
Labs:
Laboratory Results
01/02/25
05:58
WBC 3.3 L
Hgb 10.5 L
Hct 30.9 L
Plt Count 126 L
Sodium 135
Potassium 3.7
Chloride 106
Carbon Dioxide 23
BUN 12
Creatinine 0.6
Glucose 161 H
Calcium 7.9 L
Vital Signs:
Vital Signs
Temp Pulse Resp BP Pulse Ox
98.2 F 74 18 153/70 97
01/01/25 23:00 01/01/25 23:00 01/01/25 23:00 01/01/25 23:00 01/01/25 23:00
I&O
01/01/25 01/02/25 01/03/25
06:59 06:59 06:59
Intake Total 900 / 900 1230 / 1230
Output Total 450 / 450 1200 / 1200
Balance 450 / 450 30 / 30
Review of Systems
-
History Source: Patient
Constitutional: Reports No Symptoms
EENT: Reports Sore Throat
Respiratory: Reports No Symptoms
Cardiac: Reports No Symptoms
Abdomen/GI: Reports Abdominal Pain
Breast: Reports No Symptoms
Genitourinary: Reports No Symptoms
Musculoskeletal: Reports No Symptoms
Skin: Reports Rash (neck post radiation)
Neuro: Reports No Symptoms
Endocrine: Reports No Symptoms
Hematologic / Lymphatic: Reports No Symptoms
Physical Exam
-
General: Well Developed, Well Nourished, No Apparent Distress and Obese
HEENT: Normocephalic, Atraumatic and Pharyngeal Erythema
Respiratory: Clear to Auscultation
Cardiac: Regular Rhythm
Breast: Deferred by me
GI: Soft and Tender
Rectal: Deferred by Provider
Genito-urinary: Deferred by me
Skin: Warm, Dry and Rash
Neuro: AO x 3
Psych: Calm
[2025-01-02 07:37] LABS: Glucose - Point of Care 140 mg/dl (70-99)
[2025-01-02 07:45] VITALS: BP 155/66
--- NOTE | 2025-01-02 07:59 | W.PN.ONC ---
Today's Communication / Plan
-
Continue Dexamethasone swish
Impression
Impression
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
Type II diabetes mellitus
Chronic heart failure reduced EF
Essential Hypertension
Depression/Anxiety
Plan
Plan
Tonsillar Squamous Cell Carcinoma
-Patient follows with Dr. Romero at [facility], started treatment on 12/03/2024. Receiving Cisplatin weekly
-Most recent radiation on 12/31/2024 prior to admission, was due for chemotherapy on 01/02/2025
-Continue dexamethasone swish with Clotrimazole swish for radiation stomatitis/pharyngitis and thrush prophylaxis.
-Recommend following CBC closely during hospital course
-Will continue to follow patient during her hospitalization
-Will monitor
Subjective/Objective
Subjective/Objective
Patient reports feeling better today than she did yesterday. She was able to get up and out of bed into her chair with assistance, and has decreased pain in both her neck and in her abdomen. Her nausea has improved and she is able tolerate small
sips of water without vomiting. She reports significant improvement in her mouth pain with the dexamethasone swishes.
Vital Signs:
Vital Signs
Temp Pulse Resp BP Pulse Ox
98.2 F 74 18 153/70 97
01/01/25 23:00 01/01/25 23:00 01/01/25 23:00 01/01/25 23:00 01/01/25 23:00
Lab Results:
Laboratory Data
WBC 3.3 10^3/uL (4.8-10.8) L 01/02/25 05:58
Hgb 10.5 g/dL (12.0-16.0) L 01/02/25 05:58
Plt Count 126 10^3/uL (130-400) L 01/02/25 05:58
eGFR Cancelled 01/02/25 07:52
[2025-01-02] MEDS: DECADRON 1 MG PO ×4 (08:10→21:48)
[2025-01-02] MEDS: MYCELEX TROCHE 10 MG PO ×3 (08:10→21:48)
[2025-01-02] MEDS: ZOFRAN 4 MG IV ×2 (08:10→16:25)
[2025-01-02] MEDS: DESENEX/MITRAZOL/ZEASORB 1 APPLIC TOPICAL ×2 (08:12→21:47)
[2025-01-02] MEDS: OASIS PO ×4 (08:27→21:49)
[2025-01-02 08:32] LABS: ALT (SGPT) 13 U/L (0-35); AST (SGOT) 18 U/L (14-36); Albumin 3.2 g/dl (3.5-5.0); Alkaline Phosphatase 85 U/L (38-126); Total Protein 5.6 g/dl (6.3-8.2); Triglycerides 134 mg/dl (10-149)
[2025-01-02] MEDS: MAGNESIUM SULFATE 50 IV (09:50)
--- NOTE | 2025-01-02 10:13 | CM ---
Chart reviewed along with updated notes from surgery, plan was to home with [facility] mental health case manager will follow in case patient needs skilled placement at discharge. Patient lives along.
Plan; Home with [facility].
[2025-01-02 12:04] LABS: Glucose - Point of Care 146 mg/dl (70-99)
[2025-01-02] MEDS: NOVOLOG FLEXPEN-MODERATE RESISTANCE SC ×2 (12:28→16:23)
--- NOTE | 2025-01-02 12:52 | PN.CDI ---
CDI
- -
CDI:
Physician Documentation Request
Admit Date: 12/31/24 19:52
Dear Doctor Curtis,
Patient admitted with abdominal wall cellulitis.
01/01 Nursing skin assessment, 'Stage 1 generalized buttock pressure injury.'
Physician documentation of the type and location of wounds is required for compliant documentation. Based on the above clinical findings and your assessment, please provide the following in your progress note:
Location of the ulcer/wound, including laterality.
Type (etiology) of ulcer/wound:
- Pressure (decubitus) ulcer
- Other
- Unable to determine
For a pressure ulcer, please also include the stage* of the ulcer:
- Stage 1 - Skin intact, non-blanchable redness
- Stage 2 - Partial thickness loss of dermis, includes intact or open blister
- Stage 3 - Full thickness tissue not including bone, tendon or muscle
- Stage 4 - Full thickness tissue loss, including exposed bone, tendon or muscle
- Unstageable - Full thickness loss in which the base of the ulcer is covered by slough (yellow, leone, zapata, green or brown) and/or eschar (leone, brown or black) in the wound bed.
- Unable to determine
Use of terms such as suspected, likely, concern for, or probable (associated with a specific diagnosis that is being evaluated, monitored, or treated as if it exists) are acceptable and can be coded in the inpatient setting, when documented at the
time of discharge.
Thank you,
Lovely MCKEON,RN,CCDS
CDI Specialist
Available via [place] text
Please use your independent medical judgment in providing your response.
*Source: National Pressure Ulcer Advisory Panel (NPUAP)
--- NOTE | 2025-01-02 13:01 | PN.CDI ---
CDI
- -
CDI:
Physician Documentation Request
Admit Date: 12/31/24 19:52
Dear Doctor Curtis,
Patient admitted with abdominal wall cellulitis.
01/02 Oncology note, 'Tonsillar Squamous Cell Carcinoma currently undergoing chemotherapy...'
WBC's, RBC's and platelet counts documented below:
Laboratory Tests
01/01/25 01/02/25
05:08 05:58
WBC 3.9 L 3.3 L
RBC 3.29 L 3.16 L
Plt Count 117 L 126 L
Based on the above, could you clarify in the progress notes, the appropriate diagnosis, if significant, that supports the above abnormalities and additional evaluation, monitoring and/or treatment rendered:
Pancytopenia due to chemotherapy
Insignificant abnormal lab findings
Other
Use of terms such as suspected, likely, concern for, or probable (associated with a specific diagnosis that is being evaluated, monitored, or treated as if it exists) are acceptable and can be coded in the inpatient setting, when documented at the
time of discharge.
Thank you,
Lovely MCKEON,RN,CCDS
CDI Specialist
Available via [place] text
Please use your independent medical judgment in providing your response.
--- NOTE | 2025-01-02 14:09 | PHA.VAN.FU ---
Vancomycin Assessment / Plan
- Assessment
Renal Function: Stable
WBC's are: Trending Down
In the past 24 hrs, patient has been: Afebrile
Concomitant Antimicrobials: Zosyn 3.375 gram IV q6h
- Dosing Plan
Continue: Vancomycin 1.5 gram IV q12h
- Monitoring Plan
No level(s) ordered at this time: Consider levels in the next few days
- Follow Up
Pharmacy will continue to follow.
Vancomycin Follow UP
- -
Patient Age: 74
Patient Sex: Female
Vancomycin Day #: 3
Indication: Skin And Soft Tissue
Requesting Provider: Rosalino Lee
Pertinent Antimicrobial Allergies:
macrolide - unknown
nitrofurantoin - unknown
sulfonamide antibiotics - rash
Height / Weight:
Height 5 ft 6 in
Actual Weight 114.334 kg
Pertinent Past Medical History: BMI ~41, DM2, Tonsillar SCC
- Vital Signs / Lab Results
Temp Pulse Resp BP Pulse Ox
97.6 F 64 20 155/66 96
01/02/25 07:45 01/02/25 07:45 01/02/25 07:45 01/02/25 07:45 01/02/25 07:45
Lab Results - Hematology
12/31/24 01/01/25 01/02/25
14:16 05:08 05:58
WBC 5.4 3.9 L 3.3 L
Lab Results - Chemistry
12/31/24 01/01/25 01/01/25
14:16 05:08 08:18
BUN 19 H Cancelled 17
Creatinine 0.6 Cancelled 0.6
Estimated Creat Clear Cancelled 102
Albumin 3.7
01/02/25 01/02/25
05:58 07:52
BUN 12 Cancelled
Creatinine 0.6 Cancelled
Estimated Creat Clear 102 Cancelled
Albumin 3.2 L Cancelled
Microbiology Results
01/01/25 04:27 Urine Culture - Final
Urine NO GROWTH
12/31/24 17:25 Wound Culture - Final
Abdomen Proteus species
Escherichia coli
Gram negative bacilli
Enterococcus species
Viridans Streptococcus Group
Rhina albicans
Gram Stain - Final
12/31/24 15:34 Blood Culture - Preliminary
Blood/Venous No Growth in 24 hours- Final report to follow
12/31/24 15:34 Blood Culture - Preliminary
Blood/Venous No Growth in 24 hours- Final report to follow
[2025-01-02] MEDS: HYDROCORTISONE 1% OINTMENT 1 APPLIC TOPICAL ×2 (14:40→21:46)
[2025-01-02] MEDS: VALIUM INJECTION 2 MG IV (14:53)
[2025-01-02 15:40] VITALS: BP 154/62
[2025-01-02 16:02] LABS: Glucose - Point of Care 126 mg/dl (70-99)
[2025-01-02] MEDS: LOVENOX 40 MG SC (17:07)
[2025-01-02] MEDS: Parenteral Nutrition, Central 1200 IV (21:20)
[2025-01-02 22:14] LABS: Glucose - Point of Care 143 mg/dl (70-99)
[2025-01-02] MEDS: LANTUS SC (22:21)
[2025-01-02] MEDS: LANTUS 0.2 UNITS SC (22:40)
[2025-01-02 23:19] VITALS: BP 143/66
[2025-01-03] VITALS (10 sets, daily range): BP systolic 125–162; BP diastolic 51–74; BMI 40.9
[2025-01-03] MEDS: NOVOLOG FLEXPEN-MODERATE RESISTANCE SC (00:09)
[2025-01-03] MEDS: ZOFRAN 4 MG IV (01:45)
[2025-01-03] MEDS: DILAUDID 0.25 MG IV ×3 (01:46→21:38)
[2025-01-03 04:19] LABS: Glucose - Point of Care 187 mg/dl (70-99)
[2025-01-03] MEDS: ZOSYN 50 IV ×4 (04:20→21:45)
[2025-01-03] MEDS: NOVOLOG FLEXPEN-MODERATE RESISTANCE 1 UNITS SC ×2 (04:21→18:06)
[2025-01-03] MEDS: VALIUM INJECTION 2 MG IV (05:07)
[2025-01-03] MEDS: VANCOCIN 530 MG IV (05:07)
--- NOTE | 2025-01-03 07:12 | W.PN.GS2 ---
Today's Communication / Plan
-
-- OR dressing change and I&D
Assessment / Plan
-
Patient is a 74 yo F p/w displaced gastrostomy tube with localized skin and soft tissue infection
G-tube has been since removed. CT scan demonstrates no evidence of any intra-abdominal component to her infection. Stomach appears to be tethered to abdominal wall without any intraperitoneal leakage or contamination. Improvement with local wound
care and antibiotics, but continues with infection at site. Recommend and plan for dressing change and operative debridement and drainage today in the OR. The procedure itself, as well as the risks, benefits, and alternatives was discussed.
Specifically, we discussed the risks of bleeding, persistent infection, injury to surrounding structures, and need for further procedures. All questions answered.
CLINICAL PHARMACOLOGIST following. Started on PICC and TPN to bridge her to oral tolerance.
-- OR dressing change and I&D
-- NPO (CLINICAL PHARMACOLOGIST following), TPN (renewed)
-- Abx: Vanco and Zosyn, cultures polymicrobial
-- Local wound care: pack with Iodoform packing and cover with dry gauze BID, may change post-operatively
Subjective Data
-
Date of Service: January 03, 2025
Continued discomfort in neck and at G-tube site. Able to tolerate some sips. No fevers.
Objective Data
-
Intake and Output
01/02/25 01/03/25 01/04/25
06:59 06:59 06:59
Intake Total 1230 / 1230 930 / 930
Output Total 1200 / 1200 400 / 400
Balance 30 / 30 530 / 530
Intake:
Oral fluids 780 / 780
IV fluids (Total) 600 / 600
IV piggybacks 630 / 630 150 / 150
Output:
Urine, Voided 1200 / 1200 400 / 400
Other:
Number of approximated SMALL 1
amounts of urine
Number of approximated MODERATE 3
amounts of urine
Vital Signs
Temp Pulse Resp BP Pulse Ox
99.5 F 65 16 143/66 97
01/02/25 23:19 01/02/25 23:19 01/02/25 23:19 01/02/25 23:19 01/02/25 23:19
Calcium Cancelled 01/02/25 07:52
Phosphorus Cancelled 01/02/25 07:52
Magnesium Cancelled 01/02/25 07:52
Total Bilirubin Cancelled 01/02/25 07:52
AST Cancelled 01/02/25 07:52
ALT Cancelled 01/02/25 07:52
Alkaline Phosphatase Cancelled 01/02/25 07:52
Total Protein Cancelled 01/02/25 07:52
Albumin Cancelled 01/02/25 07:52
Physical Exam
-
Gen: NAD
Abd: soft, tender to G-tube site, blanching erythema, induration, purulent drainage, packing last exchanged yesterday evening
Patient has a duval catheter: No
Patient has a central line: Yes
--- NOTE | 2025-01-03 07:17 | W.SUR.PREOP ---
Pre-Operative Surgical Note
-
I have examined this patient prior to the performance of the scheduled procedure.
The patient's condition is unchanged from the time of the current History and
Physical and the patient is able to undergo the scheduled procedure.
--- NOTE | 2025-01-03 07:18 | W.PN.HOSP.TC ---
Addendum entered and electronically signed by Malika Acevedo MD, Resident 01/03/25 16:05:
#generalized buttock pressure injury
-stage 1
-Moisture associated skin damage
Original Note:
Today's Communication/Plan
-
operative debridement and drainage today in the OR
Replete electrolyte abnormalities
Assessment / Plan
Assessment / Plan
#Localized skin and soft tissue infection
-Continue Vancomycin and Zosyn
-Blood cultures- no growth in 24h- pending
-Abdomen wound culture- preliminary
Few Presumptive Proteus species
Few Presumptive Escherichia coli
Few 3rd Gram negative bacilli of two morphotypes
Few Enterococcus species
Many Viridans Streptococcus Group
Few Presumptive Rhina albicans
--Consult ID
-CT abdomen:There is a focus of subcutaneous gas with adjacent cutaneous thickening and fat stranding which may represent a superficial infectious process and is likely related to reported gastrostomy tube.
-Local wound care: pack with Iodoform packing and cover with dry gauze BID
-01/03 Surgery: operative debridement and drainage
#Primary tonsillar SCC, Post-radiation stomatitis/pharyngitis
-Pancytopenia due to chemotherapy
-Consult oncology
-Dexamethasone 1mg PO QID
-Clotrimazole 10mg PO TID- thrush prophylaxis
-[place]
-NPO w ice chips
-Monitor cbc
-dermatitis jmij-vylargewt-Tkvqpgpxbhplra 1% topical BID
#Dislodged Gastrotomy Tube
-Surgery Consulted - Tube unable to be replaced in ED- patient declines tube
-Speech Language Pathology, Nutrition eval
-start PICC and TPN to bridge her to oral tolerance
-Follow Electrolyte abnormalities-- replete prn
#Chronic HFrEF
#Dilated Cardiomyopathy
-Diuretics on hold- replete Mg
-Hold Entresto and dapagliflozin
-Monitor Daily Weights
#Diabetes Mellitus, Type II with Diabetic Neuropathy
-Insulin Aspart per protocol
-Insulin Glargine 25U SQ
-Monitor glucose---if high after tpn will increase the SS to high
#Essential Hypertension
-Oral meds on hold
-Hydralazine PRN
-Monitor blood pressure
#Depression / Anxiety
-1mg IV Valium Q6h PRN
DVT Proph: Lovenox
Anticipated Discharge: > 48 hours
Subjective/Interval History
-
Date of Service: January 03, 2025
She reports feeling horrible today. Her sore throat got worse since yesterday. Her abdominal pain is worse rates 02/07. She is anxious and worried about everything. She is crying.
Objective Data
-
Labs:
Laboratory Results
01/03/25
06:00
WBC Pending
Hgb Pending
Hct Pending
Plt Count Pending
Sodium Pending
Potassium Pending
Chloride Pending
Carbon Dioxide Pending
BUN Pending
Creatinine Pending
Glucose Pending
Calcium Pending
Vital Signs:
Vital Signs
Temp Pulse Resp BP Pulse Ox
99.5 F 65 16 143/66 97
01/02/25 23:19 01/02/25 23:19 01/02/25 23:19 01/02/25 23:19 01/02/25 23:19
I&O
01/02/25 01/03/25 01/04/25
06:59 06:59 06:59
Intake Total 1230 / 1230 930 / 930
Output Total 1200 / 1200 400 / 400
Balance 30 / 30 530 / 530
Review of Systems
-
History Source: Patient
Constitutional: Reports No Symptoms
EENT: Reports Tearing and Sore Throat
Respiratory: Reports No Symptoms
Cardiac: Reports No Symptoms
Abdomen/GI: Reports Abdominal Pain and Nausea
Breast: Reports No Symptoms
Genitourinary: Reports No Symptoms
Musculoskeletal: Reports No Symptoms
Skin: Reports Rash (neck post radiation)
Neuro: Reports No Symptoms
Endocrine: Reports No Symptoms
Hematologic / Lymphatic: Reports No Symptoms
Psych: Reports Sad and Anxious
Physical Exam
-
General: Well Developed, Well Nourished, Appears in Distress and Obese
HEENT: Normocephalic, Atraumatic and Pharyngeal Erythema
Respiratory: Clear to Auscultation
Cardiac: Regular Rhythm
Breast: Deferred by me
GI: Soft, Nondistended and Tender
Rectal: Deferred by Provider
Genito-urinary: Deferred by me
Skin: Warm, Dry and Rash
Neuro: AO x 3
Psych: Agitated and Anxious
[2025-01-03 08:56] LABS: Hematocrit 30.7 % (37.0-47.0); Hemoglobin 10.5 g/dL (12.0-16.0); Mean Corp Hgb Conc. 34.2 g/dL (33.0-37.0); Mean Corpuscular Volume 99.0 fL (81.0-99.0); Platelet Count 132 10^3/uL (130-400); Red Cell Dist. Width 14.9 % (11.5-14.5)
--- NOTE | 2025-01-03 09:02 | PTOTSP ---
Speech Therapy
Currently NPO for OR but also unable to swallow given nausea/dry heaving/gagging.
ST will continue ongoing assessment of swallowing as patient tolerates. Patient is at risk for dysphagia given current chemo-radiation treatment for tonsillar cancer. Patient's personal risk factors for developing an aspiration pneumonia from
dysphagia include a weakened immune system, poor nutrition, age, and positive cardiovascular history.
Ideally, instrumental assessment of swallowing (FEES preferred over VSE) will be completed at some point/points during patient's cancer treatment to obtain objective information on swallow safety and efficiency. Instrumental testing not feasible at
this time given patient's nausea and gagging response when attempting swallow.
In the meantime, allow solids and thin liquids per patient tolerance and meds as tolerated.
[2025-01-03 09:14] LABS: Blood Urea Nitrogen 12 mg/dl (7-17); Calcium 8.2 mg/dl (8.4-10.2); Carbon Dioxide 28 mmol/L (22-30); Chloride 105 mmol/L (98-107); Estimated Creatinine Clearance 88 ml/min; Glucose 197 mg/dl (70-99); Magnesium 1.5 mg/dl (1.6-2.3); Potassium 3.5 mmol/L (3.5-5.1); Sodium 136 mmol/L (135-145); eGFR > 60.00
[2025-01-03] MEDS: MYCELEX TROCHE PO ×2 (09:43→16:02)
[2025-01-03] MEDS: OASIS PO ×4 (09:43→21:46)
[2025-01-03] MEDS: DESENEX/MITRAZOL/ZEASORB 1 APPLIC TOPICAL ×2 (09:44→21:02)
[2025-01-03] MEDS: DECADRON 1 MG PO ×3 (09:44→22:04)
[2025-01-03] MEDS: HYDROCORTISONE 1% OINTMENT 1 APPLIC TOPICAL ×2 (09:46→21:02)
[2025-01-03] MEDS: DILAUDID 1 MG IV (09:55)
[2025-01-03] MEDS: MAGNESIUM SULFATE 50 IV (11:19)
[2025-01-03 11:21] LABS: Glucose - Point of Care 210 mg/dl (70-99)
[2025-01-03] MEDS: NOVOLOG FLEXPEN-MODERATE RESISTANCE 3 UNITS SC (11:26)
--- NOTE | 2025-01-03 11:44 | CM ---
Chart reviewed and will follow with progress, plan is to home with [facility].
Plan; Home with [facility] when stable.
--- NOTE | 2025-01-03 12:44 | CON.ID ---
Consultation
-
Date/Time Consultation Requested: 01/02/25 1304
Date/Time Consultation Performed: 01/03/2025 1220
Requesting Provider: Dr. Cowart
Performing Provider: Dr. Hernandez
Reason for Consultation: Abdominal wall infection
Chief Complaint / Past History
History of Present Illness
Ina Nieto is a 74-year-old female being evaluated at the request of Dr. Menjivar in regards to abdominal wall infection. History is obtained from chart review, along with patient interview.
The patient has an underlying history of tonsillar squamous cell carcinoma, and has been receiving chemotherapy and XRT. She had a PEG placed on 12/12/2024 for nutrition, but approximately 1 week ago it became dislodged. She was seen 3 days ago in
the radiation oncology suite, and she was immediately sent to the ER secondary to the appearance of the PEG site. At that point in time the PEG was out. Drainage was noted from the area. Her hospital course thus far has been significant for
placement on TPN for nutrition since she cannot maintain nutrition via the oral route. She currently notes that pain is 10 out of 10. She admits to dysphagia and a dyne aphasia. She denies any fevers or chills. She is tentatively for the OR
later today for abdominal wall exploration.
Past History
Additional Past Medical History:
Tonsillar squamous cell carcinoma (XRT, chemo)
DM type II
CHF
HTN
Anxiety/depression
Additional Past Surgical History:
Port-A-Cath
Bilateral Partial Nephrectomy
Cholecystectomy
Hysterectomy
Carpal Tunnel Release
Bilateral Hip Replacements
Bilateral Total Knee Replacements
Allergy History:
adhesive Allergy (Verified 12/31/24 12:21)
Rash, blisters
bupropion (From Wellbutrin) Allergy (Verified 12/31/24 12:21)
Tinnitus
citalopram Allergy (Verified 12/31/24 12:21)
Tachycardia
hydrochlorothiazide Allergy (Verified 12/31/24 12:21)
Unknown
lisinopril Allergy (Verified 12/31/24 12:21)
Mouth and throat swelling
Macrolide Antibiotics Allergy (Verified 12/31/24 12:21)
Unknown
metformin Allergy (Verified 12/31/24 12:21)
stomach pain and diarrhea
nitrofurantoin (From Macrodantin) Allergy (Verified 12/31/24 12:21)
pt can't remember reaction
Sulfa (Sulfonamide Antibiotics) Allergy (Verified 12/31/24 12:21)
Rash
Medications Reviewed: Yes
Current Antibiotics:
Vancomycin (dosing per pharmacy)
Zosyn
Social History
Tobacco: Non-Smoker
Alcohol: None
Drug: None
Personal:
Living: Alone
Employment: Retired
Family History
Family History: Not Pertinent
Review of Systems
Vital Signs
Temp Pulse Resp BP Pulse Ox
98.1 F 62 20 148/74 96
01/03/25 07:26 01/03/25 07:26 01/03/25 07:26 01/03/25 07:26 01/03/25 07:26
Physical Exam
Physical Exam
Constitutional: Comfortable, Chronically Ill, Non-toxic and Obese
Head: Normocephalic
Eyes: Pupils Equal, Pupils Round, No Conjunctival Hemorrhage and Sclera Anicteric
Oral: No Thrush and No Ulcers
Cardiovascular: Regular Rate and S1/S2; Negative S3/S4
Pulmonary: Clear; Negative Wheezes, Rales or Rhonchi
Gastrointestinal: Normal Bowel Sounds and Other (Abdominal wall tender around prior PEG site. Surrounding area is erythematous. Packing in place with purulent drainage surrounding it.)
Extremities: Edema; Negative Cyanosis or Erythema
Neurological: Awake and Alert
Psychological: Calm
Lab / Diagnostic Study Results
01/03/25 08:13
01/03/25 08:13
Abs Immat Gran (auto) 0.0 10^3/uL (0-0.05) 12/31/24 14:16
Absolute Neuts (auto) 4.3 10^3/uL (1.4-6.5) 12/31/24 14:16
Absolute Lymphs (auto) 0.3 10^3/uL (1.2-3.4) L 12/31/24 14:16
Absolute Monos (auto) 0.8 10^3/uL (0.1-0.6) H 12/31/24 14:16
Absolute Basos (auto) 0.0 10^3/uL (0-0.2) 12/31/24 14:16
Immature Gran % 0.6 % (0-0.5) H 12/31/24 14:16
Neutrophils % 78.8 % (42.2-75.2) H 12/31/24 14:16
Lymphocytes % 5.7 % (20.5-51.1) L 12/31/24 14:16
Monocytes % 13.9 % (1.7-9.3) H 12/31/24 14:16
Eosinophils % 0.4 % (0-6) 12/31/24 14:16
Basophils % 0.6 % (0-2) 12/31/24 14:16
Ur Squamous Epith Cells 11-15 /LPF (Few) 01/01/25 04:27
Microbiology Results
Micro:
12/31/24 15:34 Blood Culture - Preliminary
Blood/Venous No Growth in 48 hours- Final report to follow
12/31/24 15:34 Blood Culture - Preliminary
Blood/Venous No Growth in 48 hours- Final report to follow
01/01/25 04:27 Urine Culture - Final
Urine NO GROWTH
12/31/24 17:25 Wound Culture - Final
Abdomen Proteus species
Escherichia coli
Gram negative bacilli
Enterococcus species
Viridans Streptococcus Group
Rhina albicans
Gram Stain - Final
Imaging:
12/31/2024 CT abdomen/pelvis: there is a focus of subcutaneous gas with adjacent cutaneous thickening and fat stranding which may represent a superficial infectious process, and is likely related to reported prior gastrostomy tube.
Assessment / Plan
Abdominal wall cellulitis/abscess secondary to dislodged PEG tube
Leukopenia
Tonsillar squamous cell carcinoma (XRT, chemo)
DM type II
CHF
HTN
Anxiety/depression
Recommendations:
Continue with Zosyn for the present.
No MRSA recovered; can discontinue further vancomycin.
Patient tentatively for OR later today for washout. If possible, would attempt deep culture as the current cutaneous culture may not reflect true pathogens.
Will continue to follow along with you.
--- NOTE | 2025-01-03 12:52 | W.PN.ONC ---
Today's Communication / Plan
-
Continue Dexamethasone swishes
Impression
Impression
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
Type II diabetes mellitus
Chronic heart failure reduced EF
Essential Hypertension
Depression/Anxiety
Plan
Plan
Tonsillar Squamous Cell Carcinoma
-Patient follows with Dr. Romero at [facility], started treatment on 12/03/2024. Receiving Cisplatin weekly
-Most recent radiation on 12/31/2024 prior to admission, was due for chemotherapy on 01/02/2025
-Continue dexamethasone swish with Clotrimazole swish for radiation stomatitis/pharyngitis and thrush prophylaxis.
-Recommend following CBC closely during hospital course.
-WBC has been downtrending since arrival on 12/31/2024, currently at 2.7.
-Hemoglobin today 10.5
-Will continue to follow patient during her hospitalization
-Will monitor
Subjective/Objective
Subjective/Objective
Patient was being prepared for transport down to the OR suite when I arrived. She states she is doing poor today, and that she while her pain had been controlled earlier it is currently very severe in her mouth, throat, and abdomen. She is also more
nauseous and has been dry heaving a lot this morning. This is markedly worse than it was for her yesterday.
Vital Signs:
Vital Signs
Temp Pulse Resp BP Pulse Ox
98.1 F 62 20 148/74 96
01/03/25 07:26 01/03/25 07:26 01/03/25 07:26 01/03/25 07:26 01/03/25 07:26
Lab Results:
Laboratory Data
WBC 2.7 10^3/uL (4.8-10.8) L 01/03/25 08:13
Hgb 10.5 g/dL (12.0-16.0) L 01/03/25 08:13
Plt Count 132 10^3/uL (130-400) 01/03/25 08:13
eGFR > 60.00 01/03/25 08:13
--- NOTE | 2025-01-03 13:09 | PTCARENOTE ---
Pt is off the floor to OR at this time.
--- NOTE | 2025-01-03 14:39 | W.IMMPOSTOP ---
Surgical Immed Post Op Note
-
Primary Surgeon: Allison
Assisting Surgeon: None
Pre-op Diagnosis: Abdominal wall abscess
Post-op Diagnosis: Abdominal wall abscess
Procedure Performed: Incision and drainage of abdominal wall abscess
Anesthesia Type: MAC/local
Specimen / Cultures: None
Estimated Blood Loss: 3 cc
Complications: None
Operative Findings:
1. Localized incision and drainage incorporating prior opening, drainage of purulence
2. Wash out and dressing change
[2025-01-03 14:40] LABS: Glucose - Point of Care 166 mg/dl (70-99)
[2025-01-03] MEDS: DECADRON PO (14:53)
[2025-01-03] MEDS: POTASSIUM PHOSPHATE 259.0909 MEQ IV (16:51)
[2025-01-03 18:07] LABS: Glucose - Point of Care 166 mg/dl (70-99)
[2025-01-03] MEDS: LOVENOX 40 MG SC (18:07)
[2025-01-03] MEDS: Parenteral Nutrition, Central 1200 IV (20:51)
[2025-01-03] MEDS: FLUSH (NSS) 1 FLUSH IV (20:53)
[2025-01-03] MEDS: MYCELEX TROCHE 10 MG PO (21:44)
[2025-01-04 00:24] LABS: Glucose - Point of Care 185 mg/dl (70-99)
[2025-01-04] MEDS: NOVOLOG FLEXPEN-MODERATE RESISTANCE 1 UNITS SC ×2 (00:44→06:08)
[2025-01-04 03:37] VITALS: BP 159/78
[2025-01-04] MEDS: FLUSH (NSS) 1 FLUSH IV (03:47)
[2025-01-04] MEDS: ZOSYN 50 IV ×4 (03:47→22:25)
[2025-01-04] MEDS: FLUSH (NSS) 2 FLUSH IV (04:07)
[2025-01-04] MEDS: DILAUDID 0.25 MG IV ×6 (04:07→23:21)
[2025-01-04 05:16] LABS: Hematocrit 29.1 % (37.0-47.0); Hemoglobin 10.2 g/dL (12.0-16.0); Mean Corp Hgb Conc. 35.1 g/dL (33.0-37.0); Mean Corpuscular Volume 98.0 fL (81.0-99.0); Platelet Count 125 10^3/uL (130-400); Red Cell Dist. Width 15.0 % (11.5-14.5)
[2025-01-04 05:31] LABS: Blood Urea Nitrogen 18 mg/dl (7-17); Calcium 8.5 mg/dl (8.4-10.2); Carbon Dioxide 28 mmol/L (22-30); Chloride 106 mmol/L (98-107); Estimated Creatinine Clearance 103 ml/min; Glucose 182 mg/dl (70-99); Magnesium 1.4 mg/dl (1.6-2.3); Potassium 3.7 mmol/L (3.5-5.1); Sodium 138 mmol/L (135-145); eGFR > 60.00
[2025-01-04 05:52] LABS: Nucleated Red Blood Cells % 0 %
[2025-01-04 05:57] LABS: Glucose - Point of Care 188 mg/dl (70-99)
[2025-01-04 06:00] VITALS: BMI 41.2
[2025-01-04 07:00] VITALS: BP 146/71
[2025-01-04 07:32] LABS: Glucose - Point of Care 190 mg/dl (70-99)
[2025-01-04] MEDS: MAGNESIUM SULFATE 50 IV (08:30)
[2025-01-04] MEDS: OASIS PO ×5 (08:30→22:30)
[2025-01-04] MEDS: MYCELEX TROCHE 10 MG PO ×3 (08:31→22:25)
[2025-01-04] MEDS: DECADRON 1 MG PO ×4 (08:31→22:25)
[2025-01-04] MEDS: HYDROCORTISONE 1% OINTMENT 1 APPLIC TOPICAL (08:32)
[2025-01-04] MEDS: DESENEX/MITRAZOL/ZEASORB 1 APPLIC TOPICAL ×2 (08:33→20:16)
[2025-01-04 11:00] VITALS: BP 142/65
[2025-01-04] MEDS: VALIUM INJECTION 1 MG IV (11:01)
--- NOTE | 2025-01-04 11:36 | W.PN.HOSP.TC ---
Today's Communication/Plan
-
Continue TPN
Continue antibiotics
Awaiting surgical input regarding oral intake
Continue IV Valium as needed
Assessment / Plan
Assessment / Plan
Assessment:
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 She was seen by radiation oncology who told her to go to the
ED due to the PEG site looking infected. Patient continued to have drainage from the area and area around the PEG seem to be infected. She was started on IV antibiotics and underwent surgical exploration/debridement. Currently she is receiving
TPN for nutrition as she cannot maintain nutrition orally.
Plan:
# Abdominal wall cellulitis secondary to G-tube dislodgment
- 01/03 Surgery: operative debridement and drainage
- CT abdomen:There is a focus of subcutaneous gas with adjacent cutaneous thickening and fat stranding which may represent a superficial infectious process and is likely related to reported gastrostomy tube.
- ID consulted due to polymicrobial aspect of wound cultures, input appreciated
- Currently on IV Zosyn, vancomycin discontinued
- Fungal growth seen on cultures however antifungal therapy not indicated at this time as per ID
- No further cultures obtained during surgical debridement, will try to obtain culture from any drainage
- Local wound care: pack with Iodoform packing and cover with dry gauze BID
- Continue monitoring CBC, temperature curve
#Primary tonsillar SCC, Post-radiation stomatitis/pharyngitis
- Pancytopenia due to chemotherapy, worsened leukopenia today
- Consult oncology, input appreciated
- Dexamethasone 1mg PO QID
- Clotrimazole 10mg PO TID- thrush prophylaxis
- [place]
- NPO w ice chips, awaiting surgical input regarding n.p.o. status
- Monitor cbc
- dermatitis [id number]-Ffvqrcegfwxtya 1% topical BID
#Dislodged Gastrotomy Tube
- Surgery Consulted - Tube unable to be replaced in ED- patient declines tube
- Speech Language Pathology, Nutrition eval
- PICC and TPN to bridge her to oral tolerance
- Continue TPN
-Follow Electrolyte abnormalities-- replete prn
#Chronic HFrEF
#Dilated Cardiomyopathy
-Diuretics on hold- replete Mg
-Hold Entresto and dapagliflozin
-Monitor Daily Weights
#Diabetes Mellitus, Type II with Diabetic Neuropathy
-Insulin Aspart per protocol
-Insulin Glargine 25U SQ
-Monitor glucose---if high after tpn will increase the SS to high
#Essential Hypertension
-Oral meds on hold
-Hydralazine PRN
-Monitor blood pressure
#Depression / Anxiety
-1mg IV Valium Q6h PRN
DVT Proph: Lovenox
Full code
Anticipated Discharge: > 48 hours
Subjective/Interval History
-
Date of Service: January 04, 2025
Patient seen this morning, was in much discomfort. Says that her condition has not really changed from yesterday. Reports that she is having difficulty drinking fluids/eating ice chips. Says area of G-tube is still pretty sore. Has been
receiving TPN.
Objective Data
-
Labs:
Laboratory Results
01/04/25
04:52
WBC 2.3 L*
Hgb 10.2 L
Hct 29.1 L
Plt Count 125 L
Sodium 138
Potassium 3.7
Chloride 106
Carbon Dioxide 28
BUN 18 H
Creatinine 0.6
Glucose 182 H
Calcium 8.5
Vital Signs:
Vital Signs
Temp Pulse Resp BP Pulse Ox
98.1 F 80 20 146/71 97
01/04/25 07:00 01/04/25 07:00 01/04/25 07:00 01/04/25 07:00 01/04/25 07:00
I&O
01/03/25 01/04/25 01/05/25
06:59 06:59 06:59
Intake Total 930 / 930 410 / 410 600 / 600
Output Total 400 / 400 2400 / 2400
Balance 530 / 530 -1989 / -1989 600 / 600
Review of Systems
-
History Source: Patient
Constitutional: Reports Fatigue
EENT: Reports Sore Throat
Respiratory: Reports No Symptoms
Cardiac: Reports No Symptoms
Abdomen/GI: Reports Abdominal Pain and Nausea
Genitourinary: Reports No Symptoms
Musculoskeletal: Reports No Symptoms
Skin: Reports Rash (neck post radiation)
Neuro: Reports No Symptoms
Endocrine: Reports No Symptoms
Hematologic / Lymphatic: Reports No Symptoms
Psych: Reports Sad and Anxious
Physical Exam
-
General: Well Developed, Appears in Distress, Conversant and Morbidly Obese
HEENT: Normocephalic, Atraumatic and Pharyngeal Erythema
Respiratory: Clear to Auscultation and Non Labored Respirations
Cardiac: Regular Rhythm and S1/S2
Breast: Deferred by me
GI: Soft, Nondistended and Tender
Rectal: Deferred by Provider
Genito-urinary: Deferred by me
Musculoskeletal: No Clubbing, No Cyanosis and No Edema
Skin: Warm, Dry and Rash
Neuro: AO x 3
Psych: Agitated and Anxious
Data Reviewed
-
Labs: Labs Reviewed by me, Discussed with Physician and Discussed with Patient
--- NOTE | 2025-01-04 11:40 | W.PN.GS2 ---
Today's Communication / Plan
-
Wound care
TPN reordered
Assessment / Plan
-
Patient is a 74 yo F p/w displaced gastrostomy tube with localized skin and soft tissue infection status post removal and incision and drainage.
-- NPO (MEASUREMENT AND VERIFICATION ENGINEER following), TPN (renewed)
-- Abx: Vanco and Zosyn, cultures polymicrobial
-- Local wound care: pack with gauze packing wet-to-dry. Changed twice daily
Time Spent
Total Time Spent with Patient (in minutes): 20
Subjective Data
-
Date of Service: January 04, 2025
Interval Events:
No acute events overnight. Slept well. Pain Controlled. Denies Nausea/Vomiting, +bowel function.
Objective Data
-
Intake and Output
01/03/25 01/04/25 01/05/25
06:59 06:59 06:59
Intake Total 930 / 930 410 / 410 600 / 600
Output Total 400 / 400 2400 / 2400
Balance 530 / 530 -1990 / -1990 600 / 600
Intake:
Oral fluids 780 / 780 360 / 360
IV fluids (Total) 50 / 50
IV piggybacks 150 / 150
TPN/PPN 600 / 600
Output:
Urine, Voided 400 / 400 2400 / 2400
Other:
Number of approximated MODERATE 3
amounts of urine
Vital Signs
Temp Pulse Resp BP Pulse Ox
98.1 F 80 20 146/71 97
01/04/25 07:00 01/04/25 07:00 01/04/25 07:00 01/04/25 07:00 01/04/25 07:00
Lab Results
01/04/25 04:52
01/04/25 04:52
Calcium 8.5 mg/dl (8.4-10.2) 01/04/25 04:52
Phosphorus 3.3 mg/dl (2.5-4.5) 01/04/25 04:52
Magnesium 1.4 mg/dl (1.6-2.3) L 01/04/25 04:52
Total Bilirubin Cancelled 01/02/25 07:52
AST Cancelled 01/02/25 07:52
ALT Cancelled 01/02/25 07:52
Alkaline Phosphatase Cancelled 01/02/25 07:52
Total Protein Cancelled 01/02/25 07:52
Albumin Cancelled 01/02/25 07:52
Physical Exam
-
GENERAL/NEURO: Awake, Alert, no distress
CHEST: Unlabored breathing on RA
ABDOMEN: Soft, obese, still some residual erythema and induration surrounding her left upper quadrant wound. Repacked at bedside, no residual fluctuance or drainage.
Patient has a duval catheter: No
Patient has a central line: No
[2025-01-04 12:08] LABS: Glucose - Point of Care 217 mg/dl (70-99)
--- NOTE | 2025-01-04 12:08 | W.PN.ID1 ---
Date of Service
Date of Service: January 04, 2025
Today's Communication
Continue Zosyn
Assessment / Plan
Abdominal wall cellulitis/abscess secondary to dislodged PEG tube
Leukopenia - likely due to chemo
Tonsillar squamous cell carcinoma (XRT, chemo)
DM type II
CHF
HTN
Anxiety/depression
Recommendations:
12/31 Cutaneous wound swab: polymicrobial organisms
01/03 s/p OR washout.
Continue with Zosyn
Chief Complaint
-: Other (Abd wall abscess)
Subjective / Review of Systems
Abd wound is sore.
Vital Signs / Physical Exam
Vital Signs
Vital Signs
Temp Pulse Resp BP Pulse Ox
98.1 F 80 20 146/71 97
01/04/25 07:00 01/04/25 07:00 01/04/25 07:00 01/04/25 07:00 01/04/25 07:00
Physical Exam
Constitutional: No Acute Distress and Obese
Cardiovascular: Regular Rate and S1/S2
Pulmonary: Clear
Gastrointestinal: Soft, Tender (mild tender over LUQ dressing) and Non Distended
Genito-Urinary: Negative CVA Tenderness
Extremities: Negative Edema
Neurological: AO x 3
Lines: Port (No erythema)
Objective Data
Lab Data
Lab Results
01/04/25 04:52
01/04/25 04:52
Estimated Creat Clear 103 ml/min 01/04/25 04:52
Total Bilirubin Cancelled 01/02/25 07:52
AST Cancelled 01/02/25 07:52
ALT Cancelled 01/02/25 07:52
Alkaline Phosphatase Cancelled 01/02/25 07:52
Most recent labs reviewed.
Micro Results:
12/31/24 15:34 Blood Culture - Preliminary
Blood/Venous No Growth in 72 hours- Final report to follow
12/31/24 15:34 Blood Culture - Preliminary
Blood/Venous No Growth in 72 hours- Final report to follow
01/01/25 04:27 Urine Culture - Final
Urine NO GROWTH
12/31/24 17:25 Wound Culture - Final
Abdomen Proteus species
Escherichia coli
Gram negative bacilli
Enterococcus species
Viridans Streptococcus Group
Rhina albicans
Gram Stain - Final
Imaging:
12/31/2024 CT abdomen/pelvis: there is a focus of subcutaneous gas with adjacent cutaneous thickening and fat stranding which may represent a superficial infectious process, and is likely related to reported prior gastrostomy tube.
[2025-01-04] MEDS: NOVOLOG FLEXPEN-MODERATE RESISTANCE 3 UNITS SC ×2 (12:14→17:26)
[2025-01-04 15:00] VITALS: BP 143/67
[2025-01-04] MEDS: LOVENOX 40 MG SC (17:19)
[2025-01-04 17:24] LABS: Glucose - Point of Care 201 mg/dl (70-99)
[2025-01-04 19:28] VITALS: BP 178/83
[2025-01-04] MEDS: APRESOLINE 5 MG IV (20:14)
[2025-01-04] MEDS: HYDROCORTISONE 1% OINTMENT TOPICAL ×2 (20:16→20:26)
[2025-01-04] MEDS: Parenteral Nutrition, Central 1550 IV (21:13)
[2025-01-04] MEDS: ZOFRAN 4 MG IV (21:19)
[2025-01-04 23:40] VITALS: BP 147/63
[2025-01-04 23:45] LABS: Glucose - Point of Care 245 mg/dl (70-99)
[2025-01-05] MEDS: NOVOLOG FLEXPEN-MODERATE RESISTANCE 3 UNITS SC
[2025-01-05 03:25] VITALS: BP 145/68
[2025-01-05] MEDS: DILAUDID 0.25 MG IV (03:27)
[2025-01-05] MEDS: ZOSYN 50 IV ×4 (03:27→22:04)
[2025-01-05 05:09] LABS: Hematocrit 29.3 % (37.0-47.0); Hemoglobin 10.1 g/dL (12.0-16.0); Mean Corp Hgb Conc. 34.5 g/dL (33.0-37.0); Mean Corpuscular Volume 97.0 fL (81.0-99.0); Platelet Count 116 10^3/uL (130-400); Red Cell Dist. Width 15.0 % (11.5-14.5)
[2025-01-05 05:12] LABS: Blood Urea Nitrogen 18 mg/dl (7-17); Calcium 8.5 mg/dl (8.4-10.2); Carbon Dioxide 28 mmol/L (22-30); Chloride 104 mmol/L (98-107); Estimated Creatinine Clearance 103 ml/min; Glucose 227 mg/dl (70-99); Magnesium 1.2 mg/dl (1.6-2.3); Potassium 3.4 mmol/L (3.5-5.1); Sodium 136 mmol/L (135-145); eGFR > 60.00
[2025-01-05 05:31] VITALS: BMI 41.2
[2025-01-05 06:28] LABS: Glucose - Point of Care 258 mg/dl (70-99)
[2025-01-05] MEDS: NOVOLOG FLEXPEN-MODERATE RESISTANCE 5 UNITS SC (06:29)
[2025-01-05] MEDS: MAGNESIUM SULFATE 50 IV ×2 (07:51→22:40)
[2025-01-05 07:53] VITALS: BP 157/81
[2025-01-05 08:09] LABS: Glucose - Point of Care 231 mg/dl (70-99)
--- NOTE | 2025-01-05 09:01 | W.PN.HOSP.TC ---
Today's Communication/Plan
-
Possible oral intake trial as per surgery input
Continue TPN
Continue antibiotics
Pain management
Assessment / Plan
Assessment / Plan
Assessment:
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 She was seen by radiation oncology who told her to go to the
ED due to the PEG site looking infected. Patient continued to have drainage from the area and area around the PEG seem to be infected. She was started on IV antibiotics and underwent surgical exploration/debridement. Currently she is receiving
TPN for nutrition as she cannot maintain nutrition orally.
Plan:
# Abdominal wall cellulitis secondary to G-tube dislodgment
- 01/03 Surgery: operative debridement and drainage
- CT abdomen:There is a focus of subcutaneous gas with adjacent cutaneous thickening and fat stranding which may represent a superficial infectious process and is likely related to reported gastrostomy tube.
- ID consulted due to polymicrobial aspect of wound cultures, input appreciated
- Currently on IV Zosyn day 6, vancomycin discontinued
- Fungal growth seen on cultures however antifungal therapy not indicated at this time as per ID
- No further cultures obtained during surgical debridement, will try to obtain culture from any drainage
- Local wound care: pack with Iodoform packing and cover with dry gauze BID
- Continue monitoring CBC, temperature curve
#Primary tonsillar SCC, Post-radiation stomatitis/pharyngitis
- Pancytopenia due to chemotherapy, continued worsened leukopenia today
- Consult oncology, input appreciated
- Dexamethasone 1mg PO QID
- Clotrimazole 10mg PO TID- thrush prophylaxis
- [place]
- NPO w ice chips, awaiting surgical input regarding n.p.o. status
- Monitor cbc
- dermatitis [id number]-[id number] 1% topical BID
#Dislodged Gastrotomy Tube
- Surgery Consulted - Tube unable to be replaced in ED- patient declines tube
- Speech Language Pathology, Nutrition eval
- PICC and TPN to bridge her to oral tolerance
- Continue TPN
-Follow Electrolyte abnormalities-- replete prn
#Chronic HFrEF
#Dilated Cardiomyopathy
- Diuretics on hold- replete Mg
- Hold Entresto and dapagliflozin
- Monitor Daily Weights
#Diabetes Mellitus, Type II with Diabetic Neuropathy
- Insulin Aspart per protocol
- Insulin Glargine 25U SQ
- Monitor glucose---if high after tpn will increase the SS to high
# Hypomagnesemia
# Hypokalemia
- Monitor and replete
#Essential Hypertension
-Oral meds on hold
-Hydralazine PRN
-Monitor blood pressure
#Depression / Anxiety
-1mg IV Valium Q6h PRN
DVT Proph: Lovenox
Full code
Anticipated Discharge: > 48 hours
Subjective/Interval History
-
Date of Service: January 05, 2025
Patient seen this morning, reported that she had a terrible night, was in a lot of distress and pain. Says that her pain is only improved with pain medications at this time. Mostly she has been try to eat some more food, had some broth but is
scared to have more because she thinks her extremities are swollen because of it.
Objective Data
-
Labs:
Laboratory Results
01/05/25
04:34
WBC 1.9 L*
Hgb 10.1 L
Hct 29.3 L
Plt Count 116 L
Sodium 136
Potassium 3.4 L
Chloride 104
Carbon Dioxide 28
BUN 18 H
Creatinine 0.5 L
Glucose 227 H
Calcium 8.5
Vital Signs:
Vital Signs
Temp Pulse Resp BP Pulse Ox
98.8 F 65 24 157/81 97
01/05/25 07:53 01/05/25 07:53 01/05/25 07:53 01/05/25 07:53 01/05/25 07:53
I&O
01/04/25 01/05/25 01/06/25
06:59 06:59 06:59
Intake Total 410 / 410 1900 / 1900
Output Total 2400 / 2400 2450 / 2450
Balance -1989 / -1989 -550 / -550
Review of Systems
-
History Source: Patient
Constitutional: Reports Fatigue
EENT: Reports Sore Throat
Respiratory: Reports No Symptoms
Cardiac: Reports No Symptoms
Abdomen/GI: Reports Abdominal Pain (Continued) and Nausea
Genitourinary: Reports No Symptoms
Musculoskeletal: Reports No Symptoms
Skin: Reports Rash (neck post radiation)
Neuro: Reports No Symptoms
Endocrine: Reports No Symptoms
Hematologic / Lymphatic: Reports No Symptoms
Psych: Reports Sad and Anxious
Physical Exam
-
General: Well Developed, Appears in Distress, Pain, Conversant and Morbidly Obese
HEENT: Normocephalic, Atraumatic and Pharyngeal Erythema
Respiratory: Clear to Auscultation and Non Labored Respirations
Cardiac: Regular Rhythm and S1/S2
GI: Soft, Nondistended and Tender
Rectal: Deferred by Provider
Genito-urinary: Deferred by me
Musculoskeletal: No Clubbing, No Cyanosis and No Edema
Skin: Warm, Dry and Rash
Neuro: Awake, Alert, Oriented and AO x 3
Psych: Agitated and Anxious
Data Reviewed
-
Labs: Labs Reviewed by me, Discussed with Physician, Discussed with Nurse and Discussed with Patient
[2025-01-05] MEDS: DECADRON 1 MG PO ×4 (09:56→21:05)
[2025-01-05] MEDS: MYCELEX TROCHE 10 MG PO ×3 (09:56→21:04)
[2025-01-05] MEDS: DILAUDID 0.5 MG IV (10:00)
[2025-01-05] MEDS: OASIS PO ×3 (10:00→17:30)
[2025-01-05] MEDS: XANAX 0.5 MG PO ×2 (10:00→19:21)
--- NOTE | 2025-01-05 11:08 | W.PN.GS2 ---
Today's Communication / Plan
-
Dressing changes with ABX
Scheduled analgesics
TPN
ABX
Assessment / Plan
-
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 Presenting d/t displaced gtube and removal with localized skin/soft tissue
infection
POD #2 I&D in OR
AFVSS
Mild pancytopenia
Pain/anxiety not well controlled today
Hypomagnesemia, hypokalemia
Plan:
-- Clears as tolerated (RADIATION ONCOLOGY THERAPIST following for odynophagia), TPN (renewed)
-- Replace electrolytes
-- Will resume some of her PO meds, desvenlafaxine (if available), liquid gabapentin, Xanax and Flexeril although may not be able to swallow d/t odynophagia
-- C/W IV dilaudid prn (dosage increased to 0.5mg), change Tylenol to scheduled and will add scheduled po oxycodone 5mg q6h (liq formulations), c/w prn Valium
-- Abx as per ID
-- Insulin and antihypertensives as per medicine service
-- Local wound care: pack with gauze packing wet-to-dry. Change twice daily
Subjective Data
-
Date of Service: January 05, 2025
Pt seen and examined at bedside with Dr. Patino. Tearful and crying out with pain. Anxious. Unable to tolerate dressing change d/t discomfort.
Objective Data
-
Intake and Output
01/04/25 01/05/25 01/06/25
06:59 06:59 06:59
Intake Total 410 / 410 1900 / 1900
Output Total 2400 / 2400 2450 / 2450
Balance -1989 / -1989 -550 / -550
Intake:
Oral fluids 360 / 360 480 / 480
IV fluids (Total) 50 / 50
IV piggybacks 100 / 100
TPN/PPN 1320 / 1320
Output:
Urine, Voided 2400 / 2400 2450 / 2450
Vital Signs
Temp Pulse Resp BP Pulse Ox
98.8 F 65 24 157/81 97
01/05/25 07:53 01/05/25 07:53 01/05/25 07:53 01/05/25 07:53 01/05/25 07:53
Lab Results
01/05/25 04:34
01/05/25 04:34
Calcium 8.5 mg/dl (8.4-10.2) 01/05/25 04:34
Phosphorus 3.3 mg/dl (2.5-4.5) 01/05/25 04:34
Magnesium 1.2 mg/dl (1.6-2.3) L 01/05/25 04:34
Total Bilirubin Cancelled 01/02/25 07:52
AST Cancelled 01/02/25 07:52
ALT Cancelled 01/02/25 07:52
Alkaline Phosphatase Cancelled 01/02/25 07:52
Total Protein Cancelled 01/02/25 07:52
Albumin Cancelled 01/02/25 07:52
Physical Exam
-
GENERAL/NEURO: Awake, Alert, no distress
CHEST: Unlabored breathing on RA
ABDOMEN: Soft, obese, still some residual erythema and induration surrounding her left upper quadrant wound. No residual fluctuance or drainage.
Patient has a duval catheter: No
Patient has a central line: No
[2025-01-05 11:20] LABS: Glucose - Point of Care 275 mg/dl (70-99)
[2025-01-05 11:30] VITALS: BP 146/68
[2025-01-05] MEDS: LASIX 40 MG IV (12:24)
[2025-01-05] MEDS: TYLENOL ORAL SOLUTION 650 MG PO ×3 (12:24→19:21)
[2025-01-05] MEDS: ROXICODONE ORAL SOLUTION PO (12:24)
[2025-01-05] MEDS: KCL 270 MEQ IV (12:25)
--- NOTE | 2025-01-05 12:27 | W.PN.ID1 ---
Addendum entered and electronically signed by Liz Patrick MD 01/05/25 14:17:
Examined left abd wall wound - wound is deep, no pus, + scant blood. Small surrounding inflamed skin.
Original Note:
Date of Service
Date of Service: January 05, 2025
Today's Communication
Continue Zosyn.
Assessment / Plan
Abdominal wall cellulitis/abscess secondary to dislodged PEG tube
Worsening Leukopenia - likely due to chemo
Tonsillar squamous cell carcinoma (XRT, chemo)
DM type II
CHF
HTN
Anxiety/depression
Recommendations:
12/31 Cutaneous wound swab: polymicrobial organisms
01/03 s/p OR washout.
Continue with Zosyn
Chief Complaint
-: Other (Abd wall abscess)
Subjective / Review of Systems
c/o pain during dressing change
Vital Signs / Physical Exam
Vital Signs
Vital Signs
Temp Pulse Resp BP Pulse Ox
98.9 F 67 20 146/68 98
01/05/25 11:30 01/05/25 11:30 01/05/25 11:30 01/05/25 11:30 01/05/25 11:30
Physical Exam
Constitutional: No Acute Distress and Obese
Cardiovascular: Regular Rate and S1/S2
Pulmonary: Clear
Gastrointestinal: Soft, Tender (mild tender over LUQ dressing) and Non Distended
Genito-Urinary: Negative CVA Tenderness
Extremities: Negative Edema
Neurological: AO x 3
Lines: Port (No erythema)
Objective Data
Lab Data
Lab Results
01/05/25 04:34
01/05/25 04:34
Estimated Creat Clear 103 ml/min 01/05/25 04:34
Total Bilirubin Cancelled 01/02/25 07:52
AST Cancelled 01/02/25 07:52
ALT Cancelled 01/02/25 07:52
Alkaline Phosphatase Cancelled 01/02/25 07:52
Most recent labs reviewed.
Micro Results:
12/31/24 15:34 Blood Culture - Preliminary
Blood/Venous No Growth in 4 days- Final report to follow
12/31/24 15:34 Blood Culture - Preliminary
Blood/Venous No Growth in 4 days- Final report to follow
01/01/25 04:27 Urine Culture - Final
Urine NO GROWTH
12/31/24 17:25 Wound Culture - Final
Abdomen Proteus species
Escherichia coli
Gram negative bacilli
Enterococcus species
Viridans Streptococcus Group
Rhina albicans
Gram Stain - Final
Imaging:
12/31/2024 CT abdomen/pelvis: there is a focus of subcutaneous gas with adjacent cutaneous thickening and fat stranding which may represent a superficial infectious process, and is likely related to reported prior gastrostomy tube.
[2025-01-05] MEDS: HYDROCORTISONE 1% OINTMENT 1 APPLIC TOPICAL ×2 (12:28→22:05)
[2025-01-05] MEDS: DESENEX/MITRAZOL/ZEASORB 1 APPLIC TOPICAL ×2 (12:28→19:23)
[2025-01-05] MEDS: NOVOLOG FLEXPEN-HIGH RESISTANCE 7 UNITS SC ×2 (12:29→17:24)
[2025-01-05 12:32] LABS: Nucleated Red Blood Cells % 0 %
[2025-01-05] MEDS: NEURONTIN 600 MG PO (12:46)
[2025-01-05] MEDS: ROXICODONE ORAL SOLUTION 5 MG PO ×2 (13:56→17:23)
[2025-01-05 15:45] VITALS: BP 135/72
[2025-01-05 17:21] LABS: Glucose - Point of Care 288 mg/dl (70-99)
[2025-01-05] MEDS: LOVENOX 40 MG SC (17:23)
[2025-01-05 21:02] LABS: Glucose - Point of Care 252 mg/dl (70-99)
[2025-01-05] MEDS: LANTUS 0.2 UNITS SC (21:05)
[2025-01-05] MEDS: DILAUDID 1 MG IV (21:06)
[2025-01-05] MEDS: Parenteral Nutrition, Central 1560 IV (21:09)
[2025-01-05] MEDS: OASIS 1 SPRAY PO (22:04)
[2025-01-05 23:54] VITALS: BP 128/71
[2025-01-06] MEDS: ROXICODONE ORAL SOLUTION 5 MG PO ×4 (00:04→17:16)
[2025-01-06] MEDS: TYLENOL ORAL SOLUTION 650 MG PO ×5 (00:05→20:42)
[2025-01-06 00:08] LABS: Glucose - Point of Care 226 mg/dl (70-99)
[2025-01-06] MEDS: NOVOLOG FLEXPEN-HIGH RESISTANCE 4 UNITS SC ×2 (00:12→05:07)
[2025-01-06] MEDS: KCL 270 MEQ IV (00:44)
[2025-01-06] MEDS: ZOSYN 50 IV ×4 (04:03→21:46)
[2025-01-06 05:07] LABS: Glucose - Point of Care 237 mg/dl (70-99)
[2025-01-06 05:34] VITALS: BMI 41.2
[2025-01-06 06:49] LABS: ALT (SGPT) 12 U/L (0-35); AST (SGOT) 14 U/L (14-36); Albumin 3.3 g/dl (3.5-5.0); Alkaline Phosphatase 70 U/L (38-126); Blood Urea Nitrogen 20 mg/dl (7-17); Calcium 8.7 mg/dl (8.4-10.2); Carbon Dioxide 29 mmol/L (22-30); Chloride 104 mmol/L (98-107); Estimated Creatinine Clearance 103 ml/min; Glucose 247 mg/dl (70-99); Hematocrit 32.4 % (37.0-47.0); Hemoglobin 11.0 g/dL (12.0-16.0); Magnesium 1.7 mg/dl (1.6-2.3); Mean Corp Hgb Conc. 34.0 g/dL (33.0-37.0); Mean Corpuscular Volume 98.2 fL (81.0-99.0); Platelet Count 128 10^3/uL (130-400); Potassium 4.4 mmol/L (3.5-5.1); Red Cell Dist. Width 15.6 % (11.5-14.5); Sodium 136 mmol/L (135-145); Total Protein 5.7 g/dl (6.3-8.2); Triglycerides 205 mg/dl (10-149); eGFR > 60.00
--- NOTE | 2025-01-06 07:16 | W.PN.HOSP.TC ---
Addendum entered and electronically signed by Fletcher Bellamy MD 01/06/25 17:08:
Abdominal wall cellulitis complicated by abscess secondary to dislodged PEG tube
Wound culture initially polymicrobial
S/p OR washout
Repeat culture Rhina albicans
Zosyn and micafungin with plan to eventually transition to Diflucan per ID
As PEG tube has not been replaced currently on TPN
Speech evaluating and advancing diet as tolerated currently on low residue pur�ed tolerating well
If continues to have improved caloric intake speech then likely able to discontinue TPN in the next 24 hours and continue low residue pur�ed diet.
Tonsillar squamous cell carcinoma
Continue Magic mouthwash
Continue outpatient follow-up with hematology/oncology
Receiving cisplatin weekly
S/p XRT which has led to oropharyngeal dysphagia/irritation/soreness.
Original Note:
Today's Communication/Plan
-
Insulin Aspart 3U AC
Insulin Aspart moderate SS
Soft diet as tolerated
Continue TPN until adequate oral intake
Assessment / Plan
Assessment / Plan
Assessment:
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 She was seen by radiation oncology who told her to go to the
ED due to the PEG site looking infected. Patient continued to have drainage from the area and area around the PEG seem to be infected. She was started on IV antibiotics and underwent surgical exploration/debridement. Soft diet as tolerated,
continue TPN until adequate oral intake.
Plan:
# Abdominal wall cellulitis secondary to G-tube dislodgment
- 01/03 Surgery: operative debridement and drainage
- CT abdomen:There is a focus of subcutaneous gas with adjacent cutaneous thickening and fat stranding which may represent a superficial infectious process and is likely related to reported gastrostomy tube.
- ID consulted due to polymicrobial aspect of wound cultures, input appreciated
- Currently on IV Zosyn day 6, vancomycin discontinued
- Fungal growth seen on cultures however antifungal therapy not indicated at this time as per ID
- No further cultures obtained during surgical debridement, will try to obtain culture from any drainage
- Local wound care: pack with Iodoform packing and cover with dry gauze BID
- Continue monitoring CBC, temperature curve
-Soft diet as tolerated, continue TPN until adequate oral intake
#Primary tonsillar SCC, Post-radiation stomatitis/pharyngitis
- Pancytopenia due to chemotherapy, continued worsened leukopenia today
- Consult oncology, input appreciated
- Dexamethasone 1mg PO QID- discontinued
- Start Magic Mouthwash
- Clotrimazole 10mg PO TID- thrush prophylaxis
- [place]
- Monitor cbc
- dermatitis byby-hplijbrga-Bkkinfwcazjote 1% topical BID
#Dislodged Gastrotomy Tube
- Surgery Consulted - Tube unable to be replaced in ED- patient declines tube
- Speech Language Pathology, Nutrition eval
- PICC and TPN to bridge her to oral tolerance
- Continue TPN
-Follow Electrolyte abnormalities-- replete prn
#Chronic HFrEF
#Dilated Cardiomyopathy
- Diuretics on hold- replete Mg
- Hold Entresto and dapagliflozin
- Monitor Daily Weights
#Diabetes Mellitus, Type II with Diabetic Neuropathy
- Insulin Aspart per protocol
-Insulin Aspart 3U AC
- Insulin Glargine 30U SQ
- Monitor glucose---if high after tpn will increase the SS to high
# Hypomagnesemia
# Hypokalemia
- Monitor and replete
#Essential Hypertension
-Hydralazine PRN
-Monitor blood pressure
#Depression / Anxiety
-1mg IV Valium Q6h PRN
DVT Proph: Lovenox
Full code
Anticipated Discharge: > 48 hours
Subjective/Interval History
-
Date of Service: January 06, 2025
She is sitting on the chair and drinking her water. She still has sore throat. She is on a regular diet. She denies nausea, vomitiing. Her abdominal pain improved. She has normal bm.
Objective Data
-
Labs:
Laboratory Results
01/06/25
05:50
WBC 1.6 L*
Hgb 11.0 L
Hct 32.4 L
Plt Count 128 L
Sodium 136
Potassium 4.4 D
Chloride 104
Carbon Dioxide 29
BUN 20 H
Creatinine 0.6
Glucose 247 H
Calcium 8.7
Total Bilirubin 0.4
AST 14
ALT 12
Alkaline Phosphatase 70
Vital Signs:
Vital Signs
Temp Pulse Resp BP Pulse Ox
98.0 F 65 18 128/71 97
01/05/25 23:54 01/05/25 23:54 01/05/25 23:54 01/05/25 23:54 01/05/25 23:54
I&O
01/05/25 01/06/25 01/07/25
06:59 06:59 06:59
Intake Total 1900 / 1900 3420 / 3420
Output Total 2450 / 2450 300 / 300
Balance -550 / -550 3120 / 3120
Review of Systems
-
History Source: Patient
Constitutional: Reports No Symptoms
EENT: Reports Sore Throat
Respiratory: Reports No Symptoms
Cardiac: Reports No Symptoms
Abdomen/GI: Reports Abdominal Pain (Continued)
Genitourinary: Reports No Symptoms
Musculoskeletal: Reports No Symptoms
Skin: Reports Rash (on neck post radiation dermatitis)
Neuro: Reports No Symptoms
Endocrine: Reports No Symptoms
Hematologic / Lymphatic: Reports No Symptoms
Physical Exam
-
General: Well Developed, Well Nourished, Pain, Conversant and Morbidly Obese
HEENT: Normocephalic, Atraumatic and Pharyngeal Erythema
Respiratory: Clear to Auscultation
Cardiac: Regular Rhythm and S1/S2
GI: Soft, Nondistended and Tender
Rectal: Deferred by Provider
Genito-urinary: Deferred by me
Musculoskeletal: No Clubbing, No Cyanosis and No Edema
Skin: Warm and Dry
Neuro: Awake, Alert, Oriented and AO x 3
Psych: Calm
[2025-01-06] MEDS: DESENEX/MITRAZOL/ZEASORB 1 APPLIC TOPICAL ×2 (07:45→20:52)
[2025-01-06] MEDS: HYDROCORTISONE 1% OINTMENT 1 APPLIC TOPICAL (07:45)
[2025-01-06] MEDS: NEURONTIN 600 MG PO (07:45)
[2025-01-06] MEDS: LASIX 40 MG IV (07:45)
[2025-01-06] MEDS: DECADRON 1 MG PO (07:46)
[2025-01-06] MEDS: MYCELEX TROCHE 10 MG PO (07:46)
[2025-01-06] MEDS: OASIS PO ×4 (07:47→20:41)
[2025-01-06] MEDS: TYLENOL ORAL SOLUTION PO (07:47)
[2025-01-06 07:50] VITALS: BP 147/72
[2025-01-06 08:12] LABS: Glucose - Point of Care 212 mg/dl (70-99)
[2025-01-06] MEDS: XANAX 0.5 MG PO ×2 (08:17→20:42)
--- NOTE | 2025-01-06 08:46 | W.PN.ONC ---
Today's Communication / Plan
-
STOP Dexamethasone
START Magic Mouthwash
Optimize mouth care regimen
Optimize pain medication regimen for pain control
Impression
Impression
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
Type II diabetes mellitus
Chronic heart failure reduced EF
Essential Hypertension
Depression/Anxiety
Plan
Plan
Tonsillar Squamous Cell Carcinoma
-Patient follows with Dr. Romero at [facility], started treatment on 12/03/2024. Receiving Cisplatin weekly
-Most recent radiation on 12/31/2024 prior to admission, was due for chemotherapy on 01/02/2025
-STOP dexamethasone swish with Clotrimazole swish as they are no longer effective at controlling pain
-START Magic Mouthwash 10mL. Will need to touch base with her tomorrow to see if this helps control her pain
-At this time, goal is to optimize mouth care regime and pain control through good pain medication regimen.
-Recommend following CBC w/ Diff closely during hospital course.
-WBC has been downtrending since arrival on 12/31/2024, currently at 1.6. Recommend daily differential with CBC to monitor.
-Hemoglobin today 11
-Will continue to follow patient during her hospitalization
-Will monitor
Subjective/Objective
Subjective/Objective
Patient reports she did have a bad day yesterday as she was in a lot of pain and had several unsuccessful lab draws in the morning. Today, she is feeling much better than she did yesterday, but is still having a significant amount of pain especially
in her right cheek area. She reports the dexamethasone swishes are no longer effective at controlling this pain. She was able to sleep more last night than she had last week, but in total only slept for 5 hours. She has also had improvement in her
nausea and vomiting, and can now tolerate fluids whereas previously she could not even tolerate ice chips.
Vital Signs:
Vital Signs
Temp Pulse Resp BP Pulse Ox
97.2 F 60 20 147/72 98
01/06/25 07:50 01/06/25 07:50 01/06/25 07:50 01/06/25 07:50 01/06/25 07:50
Lab Results:
Laboratory Data
WBC 1.6 10^3/uL (4.8-10.8) L* 01/06/25 05:50
Hgb 11.0 g/dL (12.0-16.0) L 01/06/25 05:50
Plt Count 128 10^3/uL (130-400) L 01/06/25 05:50
eGFR > 60.00 01/06/25 05:50
--- NOTE | 2025-01-06 11:03 | W.PN.GS2 ---
Today's Communication / Plan
-
Soft diet as tolerated, continue TPN until adequate oral intake
Wound care
Assessment / Plan
-
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 Presenting d/t displaced gtube and removal with localized skin/soft tissue
infection
POD #3 I&D in OR
AFVSS
Mild pancytopenia, stable
Pain now well controlled, less anxious back on xanax
Hypomagnesemia, hypokalemia resolved
Tolerating fulls, not taking in a lot PO but more than previous
Plan:
-- Soft diet as tolerated (SENIOR ADULTS DIRECTOR following for odynophagia)
-- TPN renewed, will follow PO intakes and d/c once meeting nutritional needs
-- Ok for po meds, liquid formulations as able
-- C/W IV dilaudid prn (dosage increased to 0.5mg), Tylenol and Oxycodone scheduled with good results
-- Xanax at home dose, prn valium IV if unable to take PO Xanax
-- Abx as per ID
-- Diabetic and cardiac management as per medicine service
-- Local wound care: pack with gauze packing wet-to-dry. Change twice daily
-- PT evaluation
Subjective Data
-
Date of Service: January 06, 2025
Pt seen and examined at bedside. Much more comfortable today. Swallowing better. Had some cream of wheat and broth for breakfast. Craving peaches, appetite returning. Unable to swallow large pills but liquid meds are going down well.
Objective Data
-
Intake and Output
01/05/25 01/06/25 01/07/25
06:59 06:59 06:59
Intake Total 1900 / 1900 3420 / 3420
Output Total 2450 / 2450 300 / 300 200 / 200
Balance -550 / -550 3120 / 3120 -200 / -200
Intake:
Oral fluids 480 / 480 970 / 970
IV fluids (Total) 50 / 50
IV piggybacks 100 / 100 470 / 470
TPN/PPN 1320 / 1320 1560 / 1560
Blood products 370 / 370
Output:
Liquid stool amount 200 / 200
Rectum 200 / 200
Urine, Voided 2450 / 2450 300 / 300
Other:
Number of approximated MODERATE 2
amounts of urine
Number of approximated LARGE 1
amounts of urine
Vital Signs
Temp Pulse Resp BP Pulse Ox
97.2 F 60 20 147/72 98
01/06/25 07:50 01/06/25 07:50 01/06/25 07:50 01/06/25 07:50 01/06/25 07:50
Lab Results
01/06/25 05:50
01/06/25 05:50
Calcium 8.7 mg/dl (8.4-10.2) 01/06/25 05:50
Phosphorus 3.2 mg/dl (2.5-4.5) 01/06/25 05:50
Magnesium 1.7 mg/dl (1.6-2.3) 01/06/25 05:50
Total Bilirubin 0.4 mg/dl (0.2-1.3) 01/06/25 05:50
AST 14 U/L (14-36) 01/06/25 05:50
ALT 12 U/L (0-35) 01/06/25 05:50
Alkaline Phosphatase 70 U/L (38-126) 01/06/25 05:50
Total Protein 5.7 g/dl (6.3-8.2) L 01/06/25 05:50
Albumin 3.3 g/dl (3.5-5.0) L 01/06/25 05:50
Physical Exam
-
GENERAL/NEURO: Awake, Alert, no distress
CHEST: Unlabored breathing on RA
ABDOMEN: Soft, obese, still some residual erythema and induration surrounding her left upper quadrant wound (improved). No residual fluctuance or drainage.
Patient has a duval catheter: No
Patient has a central line: Yes (port)
[2025-01-06 11:34] LABS: Glucose - Point of Care 309 mg/dl (70-99)
[2025-01-06 12:07] LABS: Glucose - Point of Care 309 mg/dl (70-99)
[2025-01-06] MEDS: ALDACTONE 25 MG PO (12:20)
[2025-01-06] MEDS: TOPROL XL 50 MG PO (12:20)
[2025-01-06] MEDS: NOVOLOG FLEXPEN-HIGH RESISTANCE 10 UNITS SC (12:20)
[2025-01-06] MEDS: ASPIR LOW (ENTERIC COATED) 81 MG PO (12:20)
--- NOTE | 2025-01-06 13:09 | W.PN.ID1 ---
Date of Service
Date of Service: January 06, 2025
Today's Communication
Continue abx. See below...
Assessment / Plan
Abdominal wall cellulitis/abscess secondary to dislodged PEG tube
Worsening Leukopenia - likely due to chemo
Tonsillar squamous cell carcinoma (XRT, chemo)
DM type II
CHF
HTN
Anxiety/depression
Recommendations:
12/31 Cutaneous wound swab: polymicrobial organisms.
01/03 s/p OR washout.
01/05 wound culture with C. albicans.
Continue with Zosyn. Add micafungin given poor PO intake. Eventual transition to diflucan.
Chief Complaint
-: Other (Abd wall abscess)
Subjective / Review of Systems
Review of Systems: No Fever, No Chills and Abdominal Pain (controlled)
Vital Signs / Physical Exam
Vital Signs
Vital Signs
Temp Pulse Resp BP Pulse Ox
97.2 F 60 20 147/72 98
01/06/25 07:50 01/06/25 07:50 01/06/25 07:50 01/06/25 07:50 01/06/25 07:50
Physical Exam
Constitutional: Comfortable, Non-toxic and Obese
Eyes: Sclera Anicteric
Cardiovascular: S1/S2; Negative S3/S4
Pulmonary: Clear; Negative Wheezes or Rales
Gastrointestinal: Distended and Decreased Bowel Sounds
Wound: Other (left upper abdominal wound dressed)
Objective Data
Lab Data
Lab Results
01/06/25 05:50
01/06/25 05:50
Estimated Creat Clear 103 ml/min 01/06/25 05:50
Total Bilirubin 0.4 mg/dl (0.2-1.3) 01/06/25 05:50
AST 14 U/L (14-36) 01/06/25 05:50
ALT 12 U/L (0-35) 01/06/25 05:50
Alkaline Phosphatase 70 U/L (38-126) 01/06/25 05:50
Most recent labs reviewed.
Micro Results:
01/05/25 14:38 Wound Culture - Preliminary
Abdomen Rhina albicans
Gram Stain - Preliminary
12/31/24 15:34 Blood Culture - Final
Blood/Venous No Growth - Final Report
12/31/24 15:34 Blood Culture - Final
Blood/Venous No Growth - Final Report
01/01/25 04:27 Urine Culture - Final
Urine NO GROWTH
12/31/24 17:25 Wound Culture - Final
Abdomen Proteus species
Escherichia coli
Gram negative bacilli
Enterococcus species
Viridans Streptococcus Group
Rhina albicans
Gram Stain - Final
Imaging:
12/31/2024 CT abdomen/pelvis: there is a focus of subcutaneous gas with adjacent cutaneous thickening and fat stranding which may represent a superficial infectious process, and is likely related to reported prior gastrostomy tube.
[2025-01-06] MEDS: MAGIC OR MIRACLE MOUTHWASH 10 ML PO ×3 (13:25→20:43)
--- NOTE | 2025-01-06 13:35 | CM ---
Spoke with patient in room .
She requested [facility] at dc for wound care
Family to transport home.
Plan home with [facility]
[2025-01-06 13:53] LABS: Glucose - Point of Care 303 mg/dl (70-99)
[2025-01-06] MEDS: MYCAMINE 105 MG IV (13:55)
[2025-01-06] MEDS: NOVOLOG FLEXPEN 3 UNITS SC ×2 (13:56→17:18)
[2025-01-06 15:05] VITALS: BP 121/62
--- NOTE | 2025-01-06 15:10 | PTOTSP ---
Speech Language Pathology
Pt seen for dysphagia tx. Pt now on IDDSI Level 6 (soft/bite-sized) and thin liquids. Pt reported she ate majority of lunch tray of chicken salad, mashed potatoes, and pudding. She reported pain in both mouth and throat in addition to R jaw with
all P.O. intake. She reported similar amount of pain for all consistencies/temperatures. She reported significant pain during session, but this appears improved with no facial grimacing. Seen with P.O. trials of regular solids and thin liquids.
Slightly prolonged mastication given absence of denture plate, but this was functional given additional time. No overt signs of aspiration.
Recommend:
(1) Upgrade to regular solids (easy to chew) and thin liquids when appropriate per surgery team
(2) Continue IDDSI Level 6 (soft/bite-sized) and thin liquids per surgery at this time
(3) Aspiration precautions: sit upright, slow rate
(4) Meds as tolerated
(5) [employer]ASSAN[employer]A ARCHITECT to continue to follow
[2025-01-06 16:52] LABS: Glucose - Point of Care 316 mg/dl (70-99)
[2025-01-06] MEDS: LOVENOX 40 MG SC (17:14)
[2025-01-06] MEDS: DILAUDID 0.5 MG IV (17:17)
[2025-01-06] MEDS: NOVOLOG FLEXPEN-MODERATE RESISTANCE 7 UNITS SC (17:18)
[2025-01-06 20:51] VITALS: BP 139/70
[2025-01-06] MEDS: ENTRESTO 49 MG/51 MG 1 TAB PO (20:52)
[2025-01-06] MEDS: HYDROCORTISONE 1% OINTMENT TOPICAL (20:53)
[2025-01-06] MEDS: LIDOCAINE 4% PATCH 2 PATCH TOPICAL (20:54)
[2025-01-06] MEDS: Parenteral Nutrition, Central 1560 IV (21:00)
[2025-01-06 21:37] LABS: Glucose - Point of Care 234 mg/dl (70-99)
[2025-01-06] MEDS: LANTUS 0.3 UNITS SC (21:46)
[2025-01-06] MEDS: DILAUDID 1 MG IV (21:50)
[2025-01-06 23:39] VITALS: BP 117/60
[2025-01-07 00:18] LABS: Glucose - Point of Care 314 mg/dl (70-99)
[2025-01-07] MEDS: NOVOLOG FLEXPEN 3 UNITS SC ×3 (00:25→12:20)
[2025-01-07] MEDS: NOVOLOG FLEXPEN-MODERATE RESISTANCE 7 UNITS SC ×2 (00:26→12:20)
[2025-01-07] MEDS: ROXICODONE ORAL SOLUTION 5 MG PO ×4 (00:26→17:17)
[2025-01-07] MEDS: TYLENOL ORAL SOLUTION 650 MG PO ×4 (00:27→17:17)
[2025-01-07] MEDS: ZOSYN 50 IV ×4 (04:04→22:06)
[2025-01-07 06:00] VITALS: BMI 40.9
[2025-01-07 06:01] LABS: Glucose - Point of Care 271 mg/dl (70-99)
[2025-01-07] MEDS: NOVOLOG FLEXPEN-MODERATE RESISTANCE 5 UNITS SC (06:05)
[2025-01-07] MEDS: DILAUDID 1 MG IV ×2 (06:12→20:30)
[2025-01-07 07:14] VITALS: BP 137/65
--- NOTE | 2025-01-07 07:18 | W.PN.HOSP.TC ---
Addendum entered and electronically signed by Fletcher Bellamy MD 01/08/25 17:01:
agree below
continue tpn
surgery following
adamantly does not want peg tube
was tolerating diet until started on micafungin
will discuss this with ID
Original Note:
Today's Communication/Plan
-
Continue TPN
Obstruction studies for new onset vomiting
Continue Zoffran
Assessment / Plan
Assessment / Plan
Assessment:
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 She was seen by radiation oncology who told her to go to the
ED due to the PEG site looking infected. Patient continued to have drainage from the area and area around the PEG seem to be infected. She was started on IV antibiotics and underwent surgical exploration/debridement. Soft diet as tolerated,
continue TPN until adequate oral intake.
Plan:
# Abdominal wall cellulitis secondary to G-tube dislodgment
- 01/03 Surgery: operative debridement and drainage
- CT abdomen:There is a focus of subcutaneous gas with adjacent cutaneous thickening and fat stranding which may represent a superficial infectious process and is likely related to reported gastrostomy tube.
- ID consulted due to polymicrobial aspect of wound cultures, input appreciated
- Fungal growth seen on cultures however antifungal therapy not indicated at this time as per ID
- No further cultures obtained during surgical debridement, will try to obtain culture from any drainage
- Local wound care: pack with Iodoform packing and cover with dry gauze BID
- Continue monitoring CBC, temperature curve
- Cotinue IV Zosyn D7, add micafungin for Rhina coverage per ID--eventually transition to diflucan
- Currently on low residue diet - pureed tolerating well
- Speech evaluating
#Primary tonsillar SCC, Post-radiation stomatitis/pharyngitis
- Pancytopenia due to chemotherapy, continued worsened leukopenia today
- Consult oncology, input appreciated
- Dexamethasone 1mg PO QID- discontinued
- Start Magic Mouthwash
- Clotrimazole 10mg PO TID- thrush prophylaxis
- [place]
- Monitor cbc
- dermatitis sato-tunibbeem-Znbnnytytggeye 1% topical BID
- TT to Dr. Romero primary oncologist
#Dislodged Gastrotomy Tube
- Surgery Consulted - Tube unable to be replaced in ED- patient declines tube
- Speech Language Pathology, Nutrition eval
- PICC and TPN to bridge her to oral tolerance
- Continue TPN
-Follow Electrolyte abnormalities-- replete prn
#New Vomiting
-She is taking zoffran
-Obstruction studies- pending
#Chronic HFrEF
#Dilated Cardiomyopathy
- Diuretics on hold- replete Mg
- Hold Entresto and dapagliflozin
- Monitor Daily Weights
#Diabetes Mellitus, Type II with Diabetic Neuropathy
-Insulin Aspart per protocol
-Insulin Aspart 3U Q6h
-Insulin Glargine 30U SQ
-Monitor glucose---if high after tpn will increase the SS to high
# Hypomagnesemia
# Hypokalemia
- Monitor and replete
#Essential Hypertension
-Hydralazine PRN
-Monitor blood pressure
#Depression / Anxiety
-1mg IV Valium Q6h PRN
DVT Proph: Lovenox
Full code
Anticipated Discharge: > 48 hours
Subjective/Interval History
-
Date of Service: January 07, 2025
She reports continuing experiencing sore throat, difficulty swallowing food because of pain. She was able to eat cream wheat, pears, and half bowl of chicken salad. She has abdominal pain to touch. It is improving. She is on TPN. She seems more
tired than yesterday.
Objective Data
-
Labs:
Laboratory Results
01/07/25
06:00
WBC Pending
Hgb Pending
Hct Pending
Plt Count Pending
Sodium Pending
Potassium Pending
Chloride Pending
Carbon Dioxide Pending
BUN Pending
Creatinine Pending
Glucose Pending
Calcium Pending
Vital Signs:
Vital Signs
Temp Pulse Resp BP Pulse Ox
97.8 F 63 16 117/60 98
01/06/25 23:39 01/06/25 23:39 01/06/25 23:39 01/06/25 23:39 01/06/25 23:39
I&O
01/06/25 01/07/25 01/08/25
06:59 06:59 06:59
Intake Total 3420 / 3420 2960 / 2960
Output Total 300 / 300 4200 / 4200
Balance 3120 / 3120 -1240 / -1240
Review of Systems
-
History Source: Patient
Constitutional: Reports No Symptoms
EENT: Reports Sore Throat and Mouth Pain
Respiratory: Reports No Symptoms
Cardiac: Reports No Symptoms
Abdomen/GI: Reports No Symptoms
Genitourinary: Reports No Symptoms
Musculoskeletal: Reports No Symptoms
Skin: Reports Rash (on neck post radiation dermatitis)
Neuro: Reports No Symptoms
Endocrine: Reports No Symptoms
Hematologic / Lymphatic: Reports No Symptoms
Psych: Reports Sad and Anxious
Physical Exam
-
General: Well Developed, Well Nourished, Pain, Conversant and Morbidly Obese
HEENT: Normocephalic, Atraumatic and Pharyngeal Erythema
Respiratory: Clear to Auscultation
Cardiac: Regular Rhythm and S1/S2
GI: Soft, Nondistended and Tender
Rectal: Deferred by Provider
Genito-urinary: Deferred by me
Musculoskeletal: No Clubbing, No Cyanosis and No Edema
Skin: Warm
Neuro: Awake, Alert, Oriented and AO x 3
Psych: Calm
[2025-01-07] MEDS: ALDACTONE 25 MG PO (07:39)
[2025-01-07] MEDS: ASPIR LOW (ENTERIC COATED) 81 MG PO (07:39)
[2025-01-07] MEDS: TOPROL XL 50 MG PO (07:39)
[2025-01-07] MEDS: ENTRESTO 49 MG/51 MG 1 TAB PO ×2 (07:39→20:05)
[2025-01-07] MEDS: NEURONTIN 600 MG PO (07:39)
[2025-01-07] MEDS: HYDROCORTISONE 1% OINTMENT 1 APPLIC TOPICAL (07:40)
[2025-01-07] MEDS: REMOVE LIDOCAINE PATCH 2 PATCH REMOVE (07:40)
[2025-01-07] MEDS: MAGIC OR MIRACLE MOUTHWASH 10 ML PO ×4 (07:40→22:06)
[2025-01-07] MEDS: DESENEX/MITRAZOL/ZEASORB 1 APPLIC TOPICAL ×2 (07:40→20:40)
[2025-01-07] MEDS: LASIX 40 MG IV (07:40)
[2025-01-07 07:41] LABS: Glucose - Point of Care 266 mg/dl (70-99)
[2025-01-07] MEDS: OASIS PO ×5 (07:42→22:10)
[2025-01-07] MEDS: TYLENOL ORAL SOLUTION PO ×2 (07:45→17:17)
[2025-01-07] MEDS: DILAUDID 0.5 MG IV (07:55)
[2025-01-07] MEDS: XANAX 0.5 MG PO ×2 (07:55→22:58)
[2025-01-07 08:43] LABS: Hematocrit 35.9 % (37.0-47.0); Hemoglobin 12.4 g/dL (12.0-16.0); Mean Corp Hgb Conc. 34.5 g/dL (33.0-37.0); Mean Corpuscular Volume 98.9 fL (81.0-99.0); Platelet Count 135 10^3/uL (130-400); Red Cell Dist. Width 15.5 % (11.5-14.5)
[2025-01-07 09:44] LABS: Blood Urea Nitrogen 23 mg/dl (7-17); Calcium 9.2 mg/dl (8.4-10.2); Carbon Dioxide 27 mmol/L (22-30); Chloride 102 mmol/L (98-107); Estimated Creatinine Clearance 103 ml/min; Glucose 255 mg/dl (70-99); Magnesium 1.3 mg/dl (1.6-2.3); Potassium 4.4 mmol/L (3.5-5.1); Sodium 135 mmol/L (135-145); eGFR > 60.00
[2025-01-07 09:57] LABS: Prealbumin (Transthyretin) 15.4 mg/dl (17.6-36.0)
[2025-01-07] MEDS: MAGNESIUM SULFATE 50 IV (10:04)
[2025-01-07] MEDS: ZOFRAN 4 MG IV (10:06)
--- NOTE | 2025-01-07 10:13 | W.PN.GS2 ---
Today's Communication / Plan
-
-- TPN renewed
-- Continue local wound care and abx
Assessment / Plan
-
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 Presenting d/t displaced gtube and removal with localized skin/soft tissue
infection
POD #4 I&D in OR
AFVSS
Mild pancytopenia, stable
Pain now well controlled, less anxious back on Xanax
Hypomagnesemia, hypokalemia resolved
Tolerating PO intake though low volume and still needs TPN
Plan:
-- Soft diet as tolerated (INSTRUCTIONAL TECHNOLOGY COACH following for odynophagia)
-- TPN renewed, will follow PO intakes and d/c once meeting nutritional needs
-- Ok for po meds, liquid formulations as able
-- C/W IV dilaudid prn (dosage increased to 0.5mg), Tylenol and Oxycodone scheduled with good results
-- Xanax at home dose, prn valium IV if unable to take PO Xanax
-- Abx as per ID
-- Diabetic and cardiac management as per medicine service
-- Local wound care: pack with gauze packing wet-to-dry. Change twice daily
-- PT evaluation
Subjective Data
-
Date of Service: January 07, 2025
No new complaints. Feels better at this time. Continued, mildly improving odynophagia. No worsening abdominal pain. No fevers.
Objective Data
-
Intake and Output
01/06/25 01/07/25 01/08/25
06:59 06:59 06:59
Intake Total 3420 / 3420 2960 / 2960
Output Total 300 / 300 4200 / 4200
Balance 3120 / 3120 -1240 / -1240
Intake:
Oral fluids 970 / 970 2079 / 2079
IV fluids (Total) 50 / 50
IV piggybacks 470 / 470 100 / 100
TPN/PPN 1560 / 1560 780 / 780
Blood products 370 / 370
Output:
Liquid stool amount 425 / 425
Rectum 425 / 425
Urine, Voided 300 / 300 3775 / 3775
Other:
Number of approximated MODERATE 2
amounts of urine
Number of approximated LARGE 1
amounts of urine
Vital Signs
Temp Pulse Resp BP Pulse Ox
97.6 F 56 20 137/65 98
01/07/25 07:14 01/07/25 07:14 01/07/25 07:14 01/07/25 07:14 01/07/25 07:14
Lab Results
01/07/25 08:19
01/07/25 08:19
Calcium 9.2 mg/dl (8.4-10.2) 01/07/25 08:19
Phosphorus 3.2 mg/dl (2.5-4.5) 01/07/25 08:19
Magnesium 1.3 mg/dl (1.6-2.3) L 01/07/25 08:19
Total Bilirubin 0.4 mg/dl (0.2-1.3) 01/06/25 05:50
AST 14 U/L (14-36) 01/06/25 05:50
ALT 12 U/L (0-35) 01/06/25 05:50
Alkaline Phosphatase 70 U/L (38-126) 01/06/25 05:50
Total Protein 5.7 g/dl (6.3-8.2) L 01/06/25 05:50
Albumin 3.3 g/dl (3.5-5.0) L 01/06/25 05:50
Physical Exam
-
Currently on commode
Abd: soft, obese, mild tenderness overlying incision, dressing c/d/i
Patient has a duval catheter: No
Patient has a central line: Yes
[2025-01-07 12:05] LABS: Glucose - Point of Care 329 mg/dl (70-99)
[2025-01-07] MEDS: MYCAMINE 105 MG IV (14:26)
--- NOTE | 2025-01-07 15:29 | W.PN.ID1 ---
Date of Service
Date of Service: January 07, 2025
Today's Communication
Continue antibiotics
Assessment / Plan
Abdominal wall cellulitis/abscess secondary to dislodged PEG tube
- s/p I&D, washout (01/03/25)
Leukopenia - likely due to chemo
Tonsillar squamous cell carcinoma (XRT, chemo)
DM type II
CHF
HTN
Anxiety/depression
Recommendations:
12/31 Cutaneous wound swab: polymicrobial organisms.
01/03 s/p OR washout.
01/05 wound culture with C. albicans.
Continue with Zosyn (d#8) / micafungin (d#2)
Await further results form 01/05 wound culture.
Follow for improvement in oral intake.
Local care to abd wound.
Follow WBC / temps.
Chief Complaint
-: Other (Abd wall abscess)
Subjective / Review of Systems
Review of Systems: No Fever and No Chills
Vital Signs / Physical Exam
Vital Signs
Vital Signs
Temp Pulse Resp BP Pulse Ox
97.6 F 56 20 137/65 98
01/07/25 07:14 01/07/25 07:14 01/07/25 07:14 01/07/25 07:14 01/07/25 07:40
Physical Exam
Constitutional: No Acute Distress, Comfortable and Non-toxic
Eyes: No Conjunctival Hemorrhage and Sclera Anicteric
Cardiovascular: S1/S2; Negative S3/S4
Pulmonary: Clear; Negative Wheezes or Rales
Gastrointestinal: Distended and Decreased Bowel Sounds
Wound: Other (left upper abdominal wound dressed)
Objective Data
Lab Data
Lab Results
01/07/25 08:19
01/07/25 08:19
Estimated Creat Clear 103 ml/min 01/07/25 08:19
Total Bilirubin 0.4 mg/dl (0.2-1.3) 01/06/25 05:50
AST 14 U/L (14-36) 01/06/25 05:50
ALT 12 U/L (0-35) 01/06/25 05:50
Alkaline Phosphatase 70 U/L (38-126) 01/06/25 05:50
Most recent labs reviewed.
Micro Results:
01/05/25 14:38 Wound Culture - Preliminary
Abdomen Gram negative bacilli
Enterococcus species
Rhina albicans
Gram Stain - Preliminary
12/31/24 15:34 Blood Culture - Final
Blood/Venous No Growth - Final Report
12/31/24 15:34 Blood Culture - Final
Blood/Venous No Growth - Final Report
01/01/25 04:27 Urine Culture - Final
Urine NO GROWTH
12/31/24 17:25 Wound Culture - Final
Abdomen Proteus species
Escherichia coli
Gram negative bacilli
Enterococcus species
Viridans Streptococcus Group
Rhina albicans
Gram Stain - Final
Imaging:
12/31/2024 CT abdomen/pelvis: there is a focus of subcutaneous gas with adjacent cutaneous thickening and fat stranding which may represent a superficial infectious process, and is likely related to reported prior gastrostomy tube.
--- NOTE | 2025-01-07 16:17 | PTCARENOTE ---
01/07- Patient has had intermittent nausea/vomiting and lethargy today. She states she begins feeling these symptoms shortly after each infusion of 'the new medicine.' The only new medicine on her current list if Mycamine, the antifungal. Discussed
possible side effects of all of her infusions. She is still able to eat small amounts of food, take ice chips and drink water. Currently she states she feels nauseous and generalized abdominal pain. She states persistent fatigue as well. VSS. She
completed her Mycamine infusion ~15minutes ago. Notified Physician.
--- NOTE | 2025-01-07 17:02 | W.PN.ONC ---
Today's Communication / Plan
-
Continue supportive care - TPN, local care for mouth/throat pain, anti-emetics
PO diet as tolerated
If unable to tolerate PO diet and no plans for another feeding tube, may need temporary TPN until she finishes and recovers from radiation
WBC trending up. Hold on GCSF
I asked Dr. Arriaga to see patient - he plans for radiation to resume after d/c
Will consider concurrent weekly cisplatin if able
Will follow along
Impression
Impression
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
Type II diabetes mellitus
Chronic heart failure reduced EF
Essential Hypertension
Depression/Anxiety
Plan
Plan
Continue supportive care - TPN, local care for mouth/throat pain, anti-emetics
PO diet as tolerated
If unable to tolerate PO diet and no plans for another feeding tube, may need temporary TPN until she finishes and recovers from radiation
WBC trending up. Hold on GCSF
I asked Dr. Arriaga to see patient - he plans for radiation to resume after d/c
Will consider concurrent weekly cisplatin if able
Will follow along
Subjective/Objective
Subjective/Objective
c/o nausea and vomiting this am. Throat pain persists, skin of neck is getting better.
Tolerated soft diet better yesterday
Vital Signs:
Vital Signs
Temp Pulse Resp BP Pulse Ox
97.6 F 56 20 137/65 98
01/07/25 07:14 01/07/25 07:14 01/07/25 07:14 01/07/25 07:14 01/07/25 07:40
Lab Results:
Laboratory Data
WBC 2.0 10^3/uL (4.8-10.8) L* 01/07/25 08:19
Hgb 12.4 g/dL (12.0-16.0) 01/07/25 08:19
Plt Count 135 10^3/uL (130-400) 01/07/25 08:19
eGFR > 60.00 01/07/25 08:19
[2025-01-07] MEDS: LOVENOX 40 MG SC (17:18)
[2025-01-07 17:57] LABS: Glucose - Point of Care 246 mg/dl (70-99)
[2025-01-07] MEDS: NOVOLOG FLEXPEN 6 UNITS SC ×2 (17:58→23:31)
[2025-01-07] MEDS: NOVOLOG FLEXPEN-MODERATE RESISTANCE 3 UNITS SC ×2 (17:58→23:30)
[2025-01-07 20:00] VITALS: BP 127/62
[2025-01-07] MEDS: HYDROCORTISONE 1% OINTMENT TOPICAL (20:44)
[2025-01-07] MEDS: LIDOCAINE 4% PATCH 2 PATCH TOPICAL (20:45)
[2025-01-07] MEDS: Parenteral Nutrition, Central 1560 IV (21:53)
[2025-01-07 22:53] LABS: Glucose - Point of Care 237 mg/dl (70-99)
[2025-01-07] MEDS: LANTUS 0.3 UNITS SC (22:57)
[2025-01-07 23:00] VITALS: BP 127/63
[2025-01-08] MEDS: TYLENOL ORAL SOLUTION 650 MG PO ×6 (01:31→21:18)
[2025-01-08] MEDS: ROXICODONE ORAL SOLUTION 5 MG PO ×2 (01:33→06:22)
[2025-01-08] MEDS: ZOSYN 50 IV ×4 (03:36→21:22)
[2025-01-08 05:09] VITALS: BMI 40.2
[2025-01-08 06:18] LABS: Glucose - Point of Care 269 mg/dl (70-99)
[2025-01-08] MEDS: NOVOLOG FLEXPEN-MODERATE RESISTANCE 5 UNITS SC (06:22)
[2025-01-08] MEDS: NOVOLOG FLEXPEN 6 UNITS SC (06:23)
--- NOTE | 2025-01-08 07:19 | W.PN.HOSP.TC ---
Addendum entered and electronically signed by Fletcher Bellamy MD 01/08/25 17:03:
change antiemetic
per id transittion micafungin to diflucan
follow speech rec
continue tpn untill meeting nutritional needs
Original Note:
Today's Communication/Plan
-
ECG, check QT if not prolonged start Compozine for nausea
Stool studies pending
0.45% NaCl IV
Discontinue Micafungin
Fluconazole
Continue TPN
Monitor Glucose
Assessment / Plan
Assessment / Plan
Assessment:
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 She was seen by radiation oncology who told her to go to the
ED due to the PEG site looking infected. Patient continued to have drainage from the area and area around the PEG seem to be infected. She was started on IV antibiotics and underwent surgical exploration/debridement. Soft diet as tolerated,
continue TPN until adequate oral intake.
Plan:
# Abdominal wall cellulitis secondary to G-tube dislodgment
- 01/03 Surgery: operative debridement and drainage
- CT abdomen:There is a focus of subcutaneous gas with adjacent cutaneous thickening and fat stranding which may represent a superficial infectious process and is likely related to reported gastrostomy tube.
- Local wound care: pack with Iodoform packing and cover with dry gauze BID
- Continue monitoring CBC, temperature curve
- ID consulted, input appreciated
- Continue IV Zosyn D9, Start Diflucan D1
- Abdomen Wound Cx: Gr neg bacilli, Eneterecoccus species, Rhina albicans
- Soft diet as tolerated
- Speech evaluating
- TPN renewed, follow PO intake
- PT/OT
#Primary tonsillar SCC, Post-radiation stomatitis/pharyngitis
- Pancytopenia due to chemotherapy, continued worsened leukopenia today
- Consult oncology, input appreciated
- Dexamethasone 1mg PO QID- discontinued
- Start Magic Mouthwash
- Clotrimazole 10mg PO TID- thrush prophylaxis
- [place] Comfort
- Monitor cbc
- dermatitis lndm-ynabfdsjl-Ispihgjnxmkptw 1% topical BID
- Dr. Romero primary oncologist- WBC trending up hold on GCSF, continue weekly Cisplatin if able
#Dislodged Gastrotomy Tube
- Surgery Consulted - Tube unable to be replaced in ED- patient declines tube
- Speech Language Pathology, Nutrition eval
- PICC and TPN to bridge her to oral tolerance
- Continue TPN
- Follow Electrolyte abnormalities-- replete prn
#New onset Vomiting
-Anti emetics
-Obstruction studies- No acute disease of the chest. No evidence of intestinal obstruction.
-Discontinue Micafungin could be related to potential side effect
-Order ECG-- Check QT-- if normal start Compozine
#New onset diarrhea
- Stool Studies- pending
- Supportive care
#Chronic HFrEF
#Dilated Cardiomyopathy
- IV Furosemide 40mg IV QD
- Hold Entresto and dapagliflozin
- Monitor Daily Weights
#Diabetes Mellitus, Type II with Diabetic Neuropathy
-Insulin Aspart per protocol
-Insulin Aspart 10U Q6h
-Insulin Glargine 40U SQ
-Consult Diabetes CONCEPT ARTIST, input appreciated
-Monitor glucose
# Hypomagnesemia
# Hypokalemia
- Monitor and replete
#Essential Hypertension
-Hydralazine PRN
-Monitor blood pressure
#Depression / Anxiety
-Alprazolam 0.5mg PO BID
-1mg IV Valium Q12h PRN
DVT Proph: Lovenox
Full code
Anticipated Discharge: > 48 hours
Subjective/Interval History
-
Date of Service: January 08, 2025
She has significant nausea, complaints about not being able to eat anything all day. She has been vomiting and having diarrhea. Does not remember the amount. Lethargy improved. She has a sore throat. Her abdominal pain improved.
Objective Data
-
Labs:
Laboratory Results
01/08/25 01/08/25
06:00 07:03
WBC Pending
Hgb Pending
Hct Pending
Plt Count Pending
Sodium Pending
Potassium Pending
Chloride Pending
Carbon Dioxide Pending
BUN Pending
Creatinine Pending
Glucose Pending
Calcium Pending
Vital Signs:
Vital Signs
Temp Pulse Resp BP Pulse Ox
98.0 F 65 22 127/63 96
01/07/25 23:00 01/07/25 23:00 01/07/25 23:00 01/07/25 23:00 01/07/25 23:00
I&O
01/07/25 01/08/25 01/09/25
06:59 06:59 06:59
Intake Total 2960 / 2960 1680 / 1680
Output Total 4200 / 4200 3050 / 3050
Balance -1240 / -1240 -1370 / -1370
Review of Systems
-
History Source: Patient
Constitutional: Reports No Symptoms
EENT: Reports Sore Throat and Mouth Pain
Respiratory: Reports No Symptoms
Cardiac: Reports No Symptoms
Abdomen/GI: Reports Nausea, Vomiting and Diarrhea
Genitourinary: Reports No Symptoms
Musculoskeletal: Reports No Symptoms
Neuro: Reports No Symptoms
Endocrine: Reports No Symptoms
Hematologic / Lymphatic: Reports No Symptoms
Psych: Reports Anxious
Physical Exam
-
General: Well Developed, Well Nourished, Pain, Conversant and Morbidly Obese
HEENT: Normocephalic, Atraumatic and Pharyngeal Erythema
Respiratory: Clear to Auscultation
Cardiac: Regular Rhythm and S1/S2
GI: Soft, Nondistended and Tender
Rectal: Deferred by Provider
Genito-urinary: Deferred by me
Musculoskeletal: No Clubbing, No Cyanosis and No Edema
Skin: Warm
Neuro: Awake, Alert, Oriented and AO x 3
Psych: Calm
[2025-01-08 07:24] VITALS: BP 121/64
[2025-01-08] MEDS: ASPIR LOW (ENTERIC COATED) 81 MG PO (07:45)
[2025-01-08] MEDS: XANAX 0.5 MG PO ×2 (07:45→21:18)
[2025-01-08] MEDS: TOPROL XL 50 MG PO (07:45)
[2025-01-08] MEDS: ALDACTONE 25 MG PO (07:46)
[2025-01-08] MEDS: DESENEX/MITRAZOL/ZEASORB 1 APPLIC TOPICAL ×2 (07:46→21:56)
[2025-01-08] MEDS: OASIS PO ×4 (07:46→21:20)
[2025-01-08] MEDS: REMOVE LIDOCAINE PATCH 2 PATCH REMOVE (07:46)
[2025-01-08] MEDS: ENTRESTO 49 MG/51 MG 1 TAB PO ×2 (07:47→21:57)
[2025-01-08] MEDS: LASIX 40 MG IV (07:47)
[2025-01-08] MEDS: NEURONTIN 600 MG PO (07:50)
--- NOTE | 2025-01-08 07:50 | PN.DE.MGMTRT ---
Insulin Management
- -
01/08/2025: Diabetes Management Consult
74 year old female admitted on 12/31 for abd wall cellulitis. PMH: Tonsillar squamous cell carcinoma on chemotherapy and XRT with PEG placement on 12/12/2024 which became dislodged, S/P surgical exploration and debridement. Now on TPN, contributing to
hyperglycemia. Prior to admission was taking SoloStar 22 units AC, Basaglar 50 units @ HS Ozempic 0.5mg Q Monday and Farxiga 10mg daily. States she was monitoring her blood sugars frequently at home. A1C 7.1%, Cr 0.6, eGFR> 60
Pt is awake, alert, oriented, sitting up in chair, c/o fatigue, nausea and abd discomfort, able to discuss diabetes care plan.
Currently on TPN and 2000 ramila soft diet, appetite is notably poor, barely eating anything from her tray.
Noted for hyperglycemia while on TPN, HS glucose was 237, pt received Lantus 30 units, fasting 269 this AM. Will increase Lantus to 40 units
Q6 hr blood sugar range os 246 to 329, Will increase NovoLog from 6 units to 10 units Q6 hrs. Cont low corrective insulin.
Farxiga on hold for now. Will closely monitor glucose trend and adjust insulin dose if necessary
Discussed with Nurse. Will cont to follow
Diabetes History
- -
Type of Diabetes: 2 requiring insulin
Pre-Admission Diabetes Regimen
01/07/25
08:19
Creatinine 0.6
Insulin Pump Settings
IP Diabetes Regimen
01/07/25 01/07/25 01/07/25
08:19 12:04 17:56
Glucose 255 H
POC Glucose 329 H 246 H
01/07/25 01/08/25
22:52 06:17
Glucose
POC Glucose 237 H 269 H
Meal type: Lunch
Amount consumed: 0
Patient Education
[2025-01-08] MEDS: MAGIC OR MIRACLE MOUTHWASH 10 ML PO ×4 (07:51→21:25)
[2025-01-08] MEDS: HYDROCORTISONE 1% OINTMENT TOPICAL ×2 (08:05→21:57)
[2025-01-08 09:18] LABS: Hematocrit 38.4 % (37.0-47.0); Hemoglobin 12.9 g/dL (12.0-16.0); Mean Corp Hgb Conc. 33.6 g/dL (33.0-37.0); Mean Corpuscular Volume 100.3 fL (81.0-99.0); Platelet Count 134 10^3/uL (130-400); Red Cell Dist. Width 15.8 % (11.5-14.5)
--- NOTE | 2025-01-08 09:31 | W.PN.ONC ---
Today's Communication / Plan
-
Continue magic mouthwash
Impression
Impression
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
Type II diabetes mellitus
Chronic heart failure reduced EF
Essential Hypertension
Depression/Anxiety
Plan
Plan
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
-Patient continues to experience nausea and pain
-Continue supportive care - TPN, Magic Mouthwash, Oral hygiene, anti-emetics
-Continue to encourage patient to take pain medications while she is awake to help maintain good pain control
-Continue oral diet as tolerated. If she is continues to be unable to tolerate oral diet, alternatives will need to be discussed to maintain caloric intake
-WBC uptrending (2.3 today, low of 1.6 on 01/06/2025). Hold GCSF
-Outpatient, will need to determine if patient will resume radiation after d/c.
-Will continue to follow
Subjective/Objective
Subjective/Objective
Patient states that yesterday afternoon she started vomiting again, and became tearful as she feels she is not getting better. She has not vomited since yesterday, but does remain nauseous with some abdominal cramping and frequent trips to the
bathroom. She continues to experience mouth pain, which is relieved by magic mouthwash but it does not last very long. She is very worried about how she will care for herself and her after discharge from the hospital. She is also very
worried about her continued inability to tolerate food for extended periods of time without vomiting.
Vital Signs:
Vital Signs
Temp Pulse Resp BP Pulse Ox
98.1 F 61 18 121/64 97
01/08/25 07:24 01/08/25 07:24 01/08/25 07:24 01/08/25 07:24 01/08/25 07:24
Lab Results:
Laboratory Data
WBC 2.3 10^3/uL (4.8-10.8) L* 01/08/25 08:22
Hgb 12.9 g/dL (12.0-16.0) 01/08/25 08:22
Plt Count 134 10^3/uL (130-400) 01/08/25 08:22
eGFR > 60.00 01/07/25 08:19
[2025-01-08] MEDS: ZOFRAN 4 MG IV ×2 (10:10→15:46)
[2025-01-08 10:18] LABS: Blood Urea Nitrogen 27 mg/dl (7-17); Calcium 9.5 mg/dl (8.4-10.2); Carbon Dioxide 29 mmol/L (22-30); Chloride 100 mmol/L (98-107); Estimated Creatinine Clearance 102 ml/min; Glucose 253 mg/dl (70-99); Magnesium 1.7 mg/dl (1.6-2.3); Potassium 4.3 mmol/L (3.5-5.1); Sodium 136 mmol/L (135-145); eGFR > 60.00
[2025-01-08 11:24] LABS: Glucose - Point of Care 386 mg/dl (70-99)
--- NOTE | 2025-01-08 12:15 | W.PN.ID1 ---
Date of Service
Date of Service: January 08, 2025
Today's Communication
Continue antibiotics. See below�
Assessment / Plan
Abdominal wall cellulitis/abscess secondary to dislodged PEG tube
- s/p I&D, washout (01/03/25)
Leukopenia - likely due to chemo
Tonsillar squamous cell carcinoma (XRT, chemo)
DM type II
CHF
HTN
Anxiety/depression
Recommendations:
12/31 Cutaneous wound swab: polymicrobial organisms.
01/03 s/p OR washout.
01/05 wound culture with Kleb oxytoca, strep mitis and C. albicans.
Patient with development of significant nausea. In addition to increasing oral intake, may be secondary to the addition of micafungin.
Will discontinue further micafungin for the present. Transition to diflucan and observe.
Continue with Zosyn (d#9)
Local care to abd wound.
Follow WBC / temps.
Chief Complaint
-: Other (Abd wall abscess)
Subjective / Review of Systems
Patient seen and examined. Reports significant nausea has developed. Notes ongoing abdominal discomfort. Also with ongoing mouth/tonsillar pain
Review of Systems: No Fever
Vital Signs / Physical Exam
Vital Signs
Vital Signs
Temp Pulse Resp BP Pulse Ox
98.1 F 61 18 121/64 97
01/08/25 07:24 01/08/25 07:24 01/08/25 07:24 01/08/25 07:24 01/08/25 07:24
Physical Exam
Constitutional: No Acute Distress, Comfortable and Non-toxic
Eyes: Sclera Anicteric
Cardiovascular: S1/S2; Negative S3/S4
Pulmonary: Clear
Gastrointestinal: Distended
Extremities: Edema; Negative Cyanosis or Erythema
Wound: Other (left upper abdominal wound dressed)
Neurological: Awake and Alert
Psychological: Calm and Other (Tearful)
Objective Data
Lab Data
Lab Results
01/08/25 08:22
01/08/25 08:22
Estimated Creat Clear 102 ml/min 01/08/25 08:22
Total Bilirubin 0.4 mg/dl (0.2-1.3) 01/06/25 05:50
AST 14 U/L (14-36) 01/06/25 05:50
ALT 12 U/L (0-35) 01/06/25 05:50
Alkaline Phosphatase 70 U/L (38-126) 01/06/25 05:50
Most recent labs reviewed.
Micro Results:
01/05/25 14:38 Wound Culture - Final
Abdomen Klebsiella oxytoca
Strep mitis/oralis
Rhina albicans
Gram Stain - Final
12/31/24 15:34 Blood Culture - Final
Blood/Venous No Growth - Final Report
12/31/24 15:34 Blood Culture - Final
Blood/Venous No Growth - Final Report
01/01/25 04:27 Urine Culture - Final
Urine NO GROWTH
12/31/24 17:25 Wound Culture - Final
Abdomen Proteus species
Escherichia coli
Gram negative bacilli
Enterococcus species
Viridans Streptococcus Group
Rhina albicans
Gram Stain - Final
Imaging:
12/31/2024 CT abdomen/pelvis: there is a focus of subcutaneous gas with adjacent cutaneous thickening and fat stranding which may represent a superficial infectious process, and is likely related to reported prior gastrostomy tube.
[2025-01-08] MEDS: NOVOLOG FLEXPEN 10 UNITS SC ×2 (12:58→17:26)
[2025-01-08] MEDS: NOVOLOG FLEXPEN-MODERATE RESISTANCE 9 UNITS SC (12:59)
[2025-01-08] MEDS: 0.45%NACL 1000 IV (13:06)
[2025-01-08] MEDS: DIFLUCAN 400 MG 200 IV (13:06)
[2025-01-08 15:00] VITALS: BP 117/61
--- NOTE | 2025-01-08 15:17 | W.PN.SURGUPD ---
Surgical Update
Surgical Update
Patient seen and examined.
Continued issues with odynophagia and tolerating oral intake. Abdominal pain well-controlled. No fevers. Energy levels appear okay, though somewhat depressed.
Gen: NAD
Abd: soft, obese, mild tenderness at prior G-tube site, minimal erythema and induration, overall significantly improved, packing in place, no bilious drainage
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 Presenting d/t displaced gtube and removal with localized skin/soft tissue
infection
POD #5 I&D in OR
AFVSS
Mild pancytopenia, stable
Pain now well controlled, less anxious back on Xanax
Tolerating PO intake though low volume and still needs TPN
Plan:
-- Soft diet as tolerated (AIR[employer] OR[employer] TECHNICIAN following for odynophagia)
-- TPN renewed, will follow PO intakes and d/c once meeting nutritional needs
-- Ok for po meds, liquid formulations as able
-- C/W IV dilaudid prn (dosage increased to 0.5mg), Tylenol and Oxycodone scheduled with good results
-- Xanax at home dose, prn valium IV if unable to take PO Xanax
-- Abx as per ID
-- Diabetic and cardiac management as per medicine service
-- Local wound care: pack with gauze packing wet-to-dry. Change twice daily
-- PT evaluation
--- NOTE | 2025-01-08 15:18 | CM ---
CM following re: discharge planning.
Reviewed pt's chart.
[facility] liaison following.
D/C plan: remains unchanged- home with [facility] and family support.
CM will follow with discharge plan updates as hospitalization progresses
[2025-01-08] MEDS: VALIUM INJECTION 1 MG IV (15:42)
[2025-01-08 16:48] LABS: Glucose - Point of Care 307 mg/dl (70-99)
[2025-01-08] MEDS: LOVENOX 40 MG SC (17:25)
[2025-01-08] MEDS: NOVOLOG FLEXPEN-MODERATE RESISTANCE 7 UNITS SC (17:26)
[2025-01-08] MEDS: DILAUDID 1 MG IV (17:34)
[2025-01-08] MEDS: LIDOCAINE 4% PATCH 2 PATCH TOPICAL (21:19)
[2025-01-08] MEDS: DILAUDID 0.5 MG IV (21:32)
[2025-01-08] MEDS: Parenteral Nutrition, Central 1560 IV (21:36)
[2025-01-08 22:28] LABS: Glucose - Point of Care 248 mg/dl (70-99)
[2025-01-08 22:30] VITALS: BP 110/57
[2025-01-08] MEDS: LANTUS 0.4 UNITS SC (22:30)
[2025-01-09 00:06] LABS: Glucose - Point of Care 268 mg/dl (70-99)
[2025-01-09] MEDS: NOVOLOG FLEXPEN 10 UNITS SC ×3 (00:12→11:45)
[2025-01-09] MEDS: NOVOLOG FLEXPEN-MODERATE RESISTANCE 5 UNITS SC ×2 (00:13→11:45)
[2025-01-09] MEDS: TYLENOL ORAL SOLUTION PO ×4 (00:13→20:12)
[2025-01-09] MEDS: ZOSYN 50 IV ×4 (04:07→21:34)
[2025-01-09 06:00] VITALS: BMI 40.0
[2025-01-09 06:07] LABS: Glucose - Point of Care 209 mg/dl (70-99)
[2025-01-09] MEDS: NOVOLOG FLEXPEN-MODERATE RESISTANCE 3 UNITS SC ×2 (06:11→17:50)
[2025-01-09] MEDS: DILAUDID 0.5 MG IV (06:18)
--- NOTE | 2025-01-09 07:10 | W.PN.HOSP.TC ---
Addendum entered and electronically signed by Fletcher Bellamy MD 01/09/25 12:50:
change antiemetic
per id transition micafungin to diflucan
follow speech rec
continue tpn untill meeting nutritional needs
Original Note:
Today's Communication/Plan
-
policy and planning manager - SNF?
Continue TPN
Increase oral intake
Supportive care
Assessment / Plan
Assessment / Plan
Assessment:
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 She was seen by radiation oncology who told her to go to the
ED due to the PEG site looking infected. Patient continued to have drainage from the area and area around the PEG seem to be infected. She was started on IV antibiotics and underwent surgical exploration/debridement. Soft diet as tolerated,
continue TPN until adequate oral intake.
Plan:
# Abdominal wall cellulitis secondary to G-tube dislodgment
- 01/03 Surgery: operative debridement and drainage
- CT abdomen:There is a focus of subcutaneous gas with adjacent cutaneous thickening and fat stranding which may represent a superficial infectious process and is likely related to reported gastrostomy tube.
- Local wound care: pack with Iodoform packing and cover with dry gauze BID
- Continue monitoring CBC, temperature curve
- ID consulted, input appreciated
- Continue IV Zosyn D10, Start Diflucan D2
- Abdomen Wound Cx: Gr neg bacilli, Eneterecoccus species, Rhina albicans
- Soft diet as tolerated
- Speech evaluating
- TPN renewed, follow PO intake
- PT/OT
#Primary tonsillar SCC, Post-radiation stomatitis/pharyngitis
- Pancytopenia due to chemotherapy, continued worsened leukopenia today
- Consult oncology, input appreciated
- Dexamethasone 1mg PO QID- discontinued
- Start Magic Mouthwash
- Clotrimazole 10mg PO TID- thrush prophylaxis
- [place]
- Monitor cbc
- dermatitis pghm-jxvwkqesi-Nighgqtdtlnujv 1% topical BID
- Dr. Romero primary oncologist- WBC trending up hold on GCSF, continue weekly Cisplatin if able
#Dislodged Gastrotomy Tube
- Surgery Consulted - Tube unable to be replaced in ED- patient declines tube
- Speech Language Pathology, Nutrition eval
- PICC and TPN to bridge her to oral tolerance
- Continue TPN
- Follow Electrolyte abnormalities-- replete prn
#New onset Vomiting
-Anti emetics
-Obstruction studies- No acute disease of the chest. No evidence of intestinal obstruction.
-Discontinue Micafungin could be related to potential side effect
-Order ECG-- Check QT-- prolonged QT--discontinue ondansetron
-Tigan
#New onset diarrhea
- Stool Studies- negative for C. Diff, culture pending
- Supportive care
#Chronic HFrEF
#Dilated Cardiomyopathy
- IV Furosemide 40mg IV QD
- Hold Entresto and dapagliflozin
- Monitor Daily Weights
#Diabetes Mellitus, Type II with Diabetic Neuropathy
-Insulin Aspart per protocol
-Insulin Aspart 10U Q6h
-Insulin Glargine 40U SQ
-Consult Diabetes ASSOCIATE PROFESSOR OF COUNSELING, input appreciated
-Monitor glucose
# Hypomagnesemia
# Hypokalemia
- Monitor and replete
#Essential Hypertension
-Hydralazine PRN
-Monitor blood pressure
#Depression / Anxiety
-Alprazolam 0.5mg PO BID
-1mg IV Valium Q12h PRN
DVT Proph: Lovenox
Full code
Anticipated Discharge: > 48 hours
Subjective/Interval History
-
Date of Service: January 09, 2025
She is very sad and crying. She expressed how she has been trying and doing so much better couple days ago. She is on TPN, was able to have 2 broth for dinner. She denies vomiting. She had 2 bm last night after dinner. She had loose bm in the
moring. She has a right jaw and throat pain. Worse with eating. Abdominal pain camp tender but improved.
Objective Data
-
Labs:
Laboratory Results
01/09/25
06:10
WBC Pending
Hgb Pending
Hct Pending
Plt Count Pending
Vital Signs:
Vital Signs
Temp Pulse Resp BP Pulse Ox
98.4 F 59 16 110/57 95
01/08/25 22:30 01/08/25 22:30 01/08/25 22:30 01/08/25 22:30 01/08/25 22:30
I&O
01/08/25 01/09/25 01/10/25
06:59 06:59 06:59
Intake Total 1680 / 1680 1010 / 1010
Output Total 3050 / 3050 850 / 850
Balance -1370 / -1370 160 / 160
Review of Systems
-
History Source: Patient
Constitutional: Reports No Symptoms
EENT: Reports Sore Throat and Mouth Pain (jaw pain)
Respiratory: Reports No Symptoms
Cardiac: Reports No Symptoms
Abdomen/GI: Reports Nausea and Diarrhea
Genitourinary: Reports No Symptoms
Musculoskeletal: Reports Joint Pain (Right jaw pain)
Neuro: Reports No Symptoms
Endocrine: Reports No Symptoms
Hematologic / Lymphatic: Reports No Symptoms
Psych: Reports Anxious
Physical Exam
-
General: Well Developed, Well Nourished, Appears in Distress, Pain, Conversant and Morbidly Obese
HEENT: Normocephalic, Atraumatic and Pharyngeal Erythema
Respiratory: Clear to Auscultation
Cardiac: Regular Rhythm and S1/S2
GI: Soft, Nondistended and Tender
Rectal: Deferred by Provider
Genito-urinary: Deferred by me
Musculoskeletal: No Clubbing, No Cyanosis and No Edema
Skin: Warm
Neuro: Awake, Alert, Oriented and AO x 3
Psych: Calm
--- NOTE | 2025-01-09 07:34 | PN.DE.MGMTRT ---
Insulin Management
- -
01/09/2025: Diabetes Management Consult Follow up
Patient admitted on 12/31 for abd wall cellulitis s/p recent G tube placement. PMH: Tonsillar squamous cell carcinoma on chemotherapy and XRT with PEG placement on 12/12/2024 which became dislodged, S/P surgical exploration and debridement. Now on TPN,
contributing to hyperglycemia. Prior to admission was taking SoloStar 22 units AC, Basaglar 50 units @ HS Ozempic 0.5mg Q Monday and Farxiga 10mg daily. States she was monitoring her blood sugars frequently at home. A1C 7.1%, Cr 0.6, eGFR> 60
Pt is awake, alert, oriented, sitting up in chair, c/o fatigue, nausea and abd discomfort, able to discuss diabetes care plan.
Currently on TPN and 2000 ramila soft diet, appetite is notably poor, barely eating anything from her tray.
Received 10 units novolog AC with corrective insulin, glucose yesterday 253 to 386. Will increase NovoLog from 10 units to 15 units change Q6 hrs to AC. Cont low corrective insulin AC. Fasting glucose today 209. Will increase HS lantus to 45
units.
Farxiga on hold for now. Will closely monitor glucose trend and adjust insulin dose if necessary
Discussed with Nurse. Will cont to follow
Diabetes History
- -
Type of Diabetes: 2 requiring insulin
Pre-Admission Diabetes Regimen
01/08/25
08:22
Creatinine 0.6
Insulin Pump Settings
IP Diabetes Regimen
01/08/25 01/08/25 01/08/25
08:22 11:23 16:46
Glucose 253 H
POC Glucose 386 H 307 H
01/08/25 01/09/25 01/09/25
22:27 00:05 06:06
Glucose
POC Glucose 248 H 268 H 209 H
Meal type: Dinner
Amount consumed: 10%
Patient Education
[2025-01-09 07:40] VITALS: BP 128/69
[2025-01-09 07:41] LABS: Glucose - Point of Care 149 mg/dl (70-99)
[2025-01-09 07:45] VITALS: BP 128/69
[2025-01-09] MEDS: NEURONTIN 300 MG PO (08:07)
[2025-01-09] MEDS: XANAX 0.5 MG PO ×2 (08:07→20:09)
[2025-01-09] MEDS: TYLENOL ORAL SOLUTION 650 MG PO ×2 (08:07→17:47)
[2025-01-09] MEDS: TOPROL XL 50 MG PO (08:07)
[2025-01-09] MEDS: OASIS PO ×4 (08:08→23:40)
[2025-01-09] MEDS: REMOVE LIDOCAINE PATCH 1 PATCH REMOVE (08:08)
[2025-01-09] MEDS: LASIX 40 MG IV (08:09)
[2025-01-09] MEDS: ENTRESTO 49 MG/51 MG 1 TAB PO ×2 (08:10→19:59)
[2025-01-09] MEDS: HYDROCORTISONE 1% OINTMENT TOPICAL (08:10)
[2025-01-09] MEDS: DESENEX/MITRAZOL/ZEASORB 1 APPLIC TOPICAL ×2 (08:11→19:57)
[2025-01-09] MEDS: MAGIC OR MIRACLE MOUTHWASH 10 ML PO ×4 (08:11→21:36)
[2025-01-09] MEDS: ALDACTONE 25 MG PO (08:11)
[2025-01-09] MEDS: ASPIR LOW (ENTERIC COATED) 81 MG PO (08:11)
[2025-01-09 08:22] LABS: Hematocrit 35.9 % (37.0-47.0); Hemoglobin 12.1 g/dL (12.0-16.0); Mean Corp Hgb Conc. 33.7 g/dL (33.0-37.0); Mean Corpuscular Volume 100.6 fL (81.0-99.0); Platelet Count 120 10^3/uL (130-400); Red Cell Dist. Width 15.9 % (11.5-14.5)
[2025-01-09] MEDS: DIFLUCAN 200 MG 100 IV (08:29)
[2025-01-09 08:54] LABS: Blood Urea Nitrogen 26 mg/dl (7-17); Calcium 9.0 mg/dl (8.4-10.2); Carbon Dioxide 30 mmol/L (22-30); Chloride 100 mmol/L (98-107); Estimated Creatinine Clearance 101 ml/min; Glucose 246 mg/dl (70-99); Magnesium 1.7 mg/dl (1.6-2.3); Potassium 4.3 mmol/L (3.5-5.1); Sodium 135 mmol/L (135-145); eGFR > 60.00
[2025-01-09 09:27] VITALS: BP 115/53; PULSE 59; O2SAT 95
[2025-01-09] MEDS: TIGAN 200 MG IM (09:41)
--- NOTE | 2025-01-09 09:53 | W.PN.ONC ---
Today's Communication / Plan
-
Continue supportive medications (Magic mouthwash, anti-emetics, pain medications)
Impression
Impression
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
Type II diabetes mellitus
Chronic heart failure reduced EF
Essential Hypertension
Depression/Anxiety
Plan
Plan
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
-Patient continues to experience nausea and pain
-Continue supportive care - TPN, Magic Mouthwash, Oral hygiene, anti-emetics
-Continue to encourage patient to take pain medications while she is awake to help maintain good pain control.
-At this point, would recommend changing PRN supportive care medications to scheduled medications for 24 hours as a trial. She frequently appears distressed from pain and nausea, and it may be of a benefit to her to give her these medications on a
schedule rather than have her have to ask for them, as she does not ask until after she is in distressing amounts of pain or has started vomiting/dry-heaving. Would recommend not waking her up to administer these medications if she is sleeping,
however.
-Continue oral diet as tolerated. If she is continues to be unable to tolerate oral diet, alternatives will need to be discussed to maintain caloric intake
-WBC uptrending (2.5 today, low of 1.6 on 01/06/2025). Hold GCSF
-Outpatient, will need to determine if patient will resume radiation after d/c.
-Will continue to follow
Subjective/Objective
Subjective/Objective
Patient was walking with staff using a walker for assistance when I arrived. She did appear short of breath during the tail end of her walk when returning to bed, but was able to get into bed herself without incidence. Once more she is nauseous and
in pain at baseline, and is very concerned that she is unable to take care of herself at home. She does not know the last time she received anti-emetic medications was, and states again that she did not know she had to ask for her PRN medications.
Her pain continues to be in her throat and stomach. The pain in her throat is relieved by magic mouthwash and the saliva substitute when she uses it, but she does not know how often she can have the substitute and states she did not know she had to
ask for it.
Vital Signs:
Vital Signs
Temp Pulse Resp BP Pulse Ox
97.6 F 62 16 128/69 98
01/09/25 07:45 01/09/25 07:45 01/09/25 07:45 01/09/25 07:45 01/09/25 07:45
Lab Results:
Laboratory Data
WBC 2.5 10^3/uL (4.8-10.8) L 01/09/25 07:57
Hgb 12.1 g/dL (12.0-16.0) 01/09/25 07:57
Plt Count 120 10^3/uL (130-400) L 01/09/25 07:57
eGFR > 60.00 01/09/25 07:57
[2025-01-09 11:38] LABS: Glucose - Point of Care 294 mg/dl (70-99)
[2025-01-09] MEDS: 0.45%NACL 1000 IV (11:40)
[2025-01-09] MEDS: DILAUDID 1 MG IV ×3 (11:42→21:37)
--- NOTE | 2025-01-09 13:08 | CM ---
CM following re: discharge planning.
Reviewed pt's chart, met with pt.
Per MD pt will need SNF level of care for IV antibiotics and TPN. PT and OT recommend home PT/OT.
Pt is aware and she stated she lives alone, has 3 sons and she cannot rely on them and she will not be able to administer IV antibiotics and TPN and pt expressed her agreement with going to a SNF. Pt stated she will not have chemo or radiation
during SNF time.
A list of SNFs provided to the pt. Following SNFs preferred: [facility], [facility]. [facility], [facility], [facility], [facility]. A referral tpo above SNFs made. Awaiting for determination.
D/C plan: preferred SNF
CM will follow to assist pt with discharge to a preferred SNF.
--- NOTE | 2025-01-09 13:26 | W.PN.SURGUPD ---
Surgical Update
Surgical Update
Chart reviewed. Labs reviewed.
-- TPN reordered, awaiting more durable oral intake prior to discontinuing.
-- Continue with local wound care and antibiotics.
-- Discussions with primary team regarding dispo planning.
[2025-01-09] MEDS: NOVOLOG FLEXPEN 5 UNITS SC (13:31)
--- NOTE | 2025-01-09 13:50 | W.PN.ID1 ---
Date of Service
Date of Service: January 09, 2025
Today's Communication
Continue Zosyn and Diflucan.
Assessment / Plan
Abdominal wall cellulitis/abscess secondary to dislodged PEG tube
- s/p I&D, washout (01/03/25)
Leukopenia - likely due to chemo
Tonsillar squamous cell carcinoma (XRT, chemo)
DM type II
CHF
HTN
Anxiety/depression
Recommendations:
12/31 Cutaneous wound swab: polymicrobial organisms.
01/03 s/p OR washout.
01/05 wound culture with Kleb oxytoca, strep mitis and C. albicans.
Patient with development of significant nausea on micafungin.
Micafungin discontinued yesterday, and patient transitioned to Diflucan.
Continue with Zosyn (d#10)
Local care to abd wound.
Follow WBC / temps.
����������������������������������������������������������
Chief Complaint
-: Other (Abd wall abscess)
Subjective / Review of Systems
Patient seen and examined. Reports nausea mildly improved today. Continues with abdominal discomfort.
Review of Systems: No Fever and No Chills
Vital Signs / Physical Exam
Vital Signs
Vital Signs
Temp Pulse Resp BP Pulse Ox
97.6 F 62 16 128/69 98
01/09/25 07:45 01/09/25 07:45 01/09/25 07:45 01/09/25 07:45 01/09/25 07:45
Physical Exam
Constitutional: No Acute Distress, Comfortable and Non-toxic
Eyes: Sclera Anicteric
Cardiovascular: S1/S2; Negative S3/S4
Pulmonary: Clear
Gastrointestinal: Distended
Extremities: Edema; Negative Cyanosis or Erythema
Wound: Other (left upper abdominal wound dressed)
Neurological: Awake and Alert
Psychological: Calm
Objective Data
Lab Data
Lab Results
01/09/25 07:57
01/09/25 07:57
Estimated Creat Clear 101 ml/min 01/09/25 07:57
Total Bilirubin 0.4 mg/dl (0.2-1.3) 01/06/25 05:50
AST 14 U/L (14-36) 01/06/25 05:50
ALT 12 U/L (0-35) 01/06/25 05:50
Alkaline Phosphatase 70 U/L (38-126) 01/06/25 05:50
Most recent labs reviewed.
Micro Results:
01/08/25 17:10 Salmonella/Shigella Culture - Preliminary
Feces/Stool Culture in Progress
Campylobacter Culture - Preliminary
Culture in Progress
Shiga Toxin Test - Final
No E. coli Shiga Toxin 1 or 2 detected.
01/08/25 17:10 C. difficile GDH Antigen & Toxins - Final
Feces/Stool Negative for toxigenic C.difficile
01/05/25 14:38 Wound Culture - Final
Abdomen Klebsiella oxytoca
Strep mitis/oralis
Rhina albicans
Gram Stain - Final
12/31/24 15:34 Blood Culture - Final
Blood/Venous No Growth - Final Report
12/31/24 15:34 Blood Culture - Final
Blood/Venous No Growth - Final Report
01/01/25 04:27 Urine Culture - Final
Urine NO GROWTH
12/31/24 17:25 Wound Culture - Final
Abdomen Proteus species
Escherichia coli
Gram negative bacilli
Enterococcus species
Viridans Streptococcus Group
Rhina albicans
Gram Stain - Final
Imaging:
12/31/2024 CT abdomen/pelvis: there is a focus of subcutaneous gas with adjacent cutaneous thickening and fat stranding which may represent a superficial infectious process, and is likely related to reported prior gastrostomy tube.
[2025-01-09 15:40] VITALS: BP 125/55
[2025-01-09 15:52] LABS: Glucose - Point of Care 233 mg/dl (70-99)
[2025-01-09] MEDS: NOVOLOG FLEXPEN 15 UNITS SC (17:50)
[2025-01-09] MEDS: LOVENOX 40 MG SC (17:51)
[2025-01-09] MEDS: HYDROCORTISONE 1% OINTMENT 1 APPLIC TOPICAL (20:08)
[2025-01-09] MEDS: Parenteral Nutrition, Central 1560 IV (21:24)
[2025-01-09 21:27] LABS: Glucose - Point of Care 233 mg/dl (70-99)
[2025-01-09] MEDS: LANTUS 0.45 UNITS SC (21:34)
[2025-01-09] MEDS: LIDOCAINE 4% PATCH 2 PATCH TOPICAL (21:35)
[2025-01-09 23:00] VITALS: BP 100/57
[2025-01-10] MEDS: TYLENOL ORAL SOLUTION PO ×5 (00:45→14:29)
[2025-01-10 00:52] LABS: Glucose - Point of Care 236 mg/dl (70-99)
[2025-01-10] MEDS: ZOSYN 50 IV ×4 (03:21→21:13)
[2025-01-10] MEDS: 0.45%NACL 1000 IV ×2 (03:24→15:09)
[2025-01-10 05:55] VITALS: BMI 39.3
[2025-01-10 06:37] LABS: Glucose - Point of Care 222 mg/dl (70-99)
--- NOTE | 2025-01-10 07:20 | W.PN.HOSP.TC ---
Addendum entered and electronically signed by Fletcher Bellamy MD 01/10/25 14:02:
change antiemetic
per id transition micafungin to diflucan
follow speech rec
continue tpn untill meeting nutritional needs
Plan to transition to [facility], already called transfer center, have been waiting for callback
- Dr. Griggs spoke with Dr. Sveta quiñones at [facility] who is aware of the patient and would like to bring them over in order to come continue radiation therapy.
Original Note:
Today's Communication/Plan
-
Transer to [facility] for further Oncologic treatment-
Continue TPN
Supplemental shakes
Start Imodium
Assessment / Plan
Assessment / Plan
Assessment:
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 She was seen by radiation oncology who told her to go to the
ED due to the PEG site looking infected. Patient continued to have drainage from the area and area around the PEG seem to be infected. She was started on IV antibiotics and underwent surgical exploration/debridement. Soft diet as tolerated,
continue TPN until adequate oral intake.
Plan:
# Abdominal wall cellulitis secondary to G-tube dislodgment
- 01/03 Surgery: operative debridement and drainage
- CT abdomen:There is a focus of subcutaneous gas with adjacent cutaneous thickening and fat stranding which may represent a superficial infectious process and is likely related to reported gastrostomy tube.
- Local wound care: pack with Iodoform packing and cover with dry gauze BID
- Continue monitoring CBC, temperature curve
- ID consulted, input appreciated
- Continue IV Zosyn D11, Start Diflucan D3
- Abdomen Wound Cx: Gr neg bacilli, Eneterecoccus species, Rhina albicans
- Soft diet as tolerated
- Speech evaluating
- TPN renewed, follow PO intake
- PT/OT
#Primary tonsillar SCC, Post-radiation stomatitis/pharyngitis
- Pancytopenia due to chemotherapy, continued worsened leukopenia today
- Consult oncology, input appreciated
- Dexamethasone 1mg PO QID- discontinued
- Start Magic Mouthwash
- Clotrimazole 10mg PO TID- thrush prophylaxis
- [place]
- Monitor cbc
- dermatitis ghvo-rmgbytxeh-Xjdiciebaiurmx 1% topical BID
- Dr. Romero primary oncologist- WBC trending up hold on GCSF, continue weekly Cisplatin if able
-Transfer to [facility]- rad onc Dr. Weber- further oncologic treatment
#Dislodged Gastrotomy Tube
- Surgery Consulted - Tube unable to be replaced in ED- patient declines tube
- Speech Language Pathology, Nutrition eval
- PICC and TPN to bridge her to oral tolerance
- Continue TPN
- Follow Electrolyte abnormalities-- replete prn
#New onset Vomiting
-Anti emetics
-Obstruction studies- No acute disease of the chest. No evidence of intestinal obstruction.
-Discontinue Micafungin could be related to potential side effect
-Order ECG-- Check QT-- prolonged QT- Today repeat ECG 440-- continue ondansetron prn
-Discontinue Tigan
#New onset diarrhea
- Stool Studies- negative for C. Diff, culture- negative
- Start Imodium- she uses it at home as well
#Chronic HFrEF
#Dilated Cardiomyopathy
- IV Furosemide 40mg IV QD
- Hold Entresto and dapagliflozin
- Monitor Daily Weights
#Diabetes Mellitus, Type II with Diabetic Neuropathy
-Insulin Aspart per protocol
-Insulin Aspart 10U Q6h
-Insulin Glargine 40U SQ
-Consult Diabetes MILLINERY SALESPERSON, input appreciated
-Monitor glucose
# Hypomagnesemia
# Hypokalemia
- Monitor and replete
#Essential Hypertension
-Hydralazine PRN
-Monitor blood pressure
#Depression / Anxiety
-Alprazolam 0.5mg PO BID
-1mg IV Valium Q12h PRN
DVT Proph: Lovenox
Full code
Anticipated Discharge: Within 24 hours
Subjective/Interval History
-
Date of Service: January 10, 2025
She is emotional, crying and experiencing sore throat. Her nausea improved. She was able to drink 2 cups of broth. Denies vomiting. She had 3 bm yesterday. She feels ready with transfer to go to [facility] to continue her care with [facility] oncologist
Dr. Weber.
Objective Data
-
Labs:
Laboratory Results
01/10/25
06:10
WBC Pending
Hgb Pending
Hct Pending
Plt Count Pending
Vital Signs:
Vital Signs
Temp Pulse Resp BP Pulse Ox
97.5 F 58 20 100/57 94
01/09/25 23:00 01/09/25 23:00 01/09/25 23:00 01/09/25 23:00 01/09/25 23:00
I&O
01/09/25 01/10/25 01/11/25
06:59 06:59 06:59
Intake Total 1010 / 1010 1600 / 1600
Output Total 850 / 850 1800 / 1800
Balance 160 / 160 -200 / -200
Review of Systems
-
History Source: Patient
Constitutional: Reports No Symptoms
EENT: Reports Sore Throat and Mouth Pain (jaw pain)
Respiratory: Reports No Symptoms
Cardiac: Reports No Symptoms
Abdomen/GI: Reports Diarrhea
Genitourinary: Reports No Symptoms
Musculoskeletal: Reports Joint Pain (Right jaw pain)
Neuro: Reports No Symptoms
Endocrine: Reports No Symptoms
Hematologic / Lymphatic: Reports No Symptoms
Psych: Reports Sad and Anxious
Physical Exam
-
General: Well Developed, Well Nourished, Appears in Distress, Pain, Conversant and Morbidly Obese
HEENT: Normocephalic, Atraumatic and Pharyngeal Erythema
Respiratory: Clear to Auscultation
Cardiac: Regular Rhythm and S1/S2
GI: Soft, Nondistended and Tender
Rectal: Deferred by Provider
Genito-urinary: Deferred by me
Musculoskeletal: No Clubbing, No Cyanosis and No Edema
Skin: Warm
Neuro: Awake, Alert, Oriented and AO x 3
Psych: Agitated
[2025-01-10 07:24] VITALS: BP 134/73
--- NOTE | 2025-01-10 07:57 | PN.DE.MGMTRT ---
Insulin Management
- -
01/10/2025: Diabetes Management Follow up
Patient admitted on 12/31 for abd wall cellulitis s/p recent G tube placement. PMH: Tonsillar squamous cell carcinoma on chemotherapy and XRT with PEG placement on 12/12/2024 which became dislodged, S/P surgical exploration and debridement. Now on TPN,
contributing to hyperglycemia. Prior to admission was taking SoloStar 22 units AC, Basaglar 50 units @ HS Ozempic 0.5mg Q Monday and Farxiga 10mg daily. States she was monitoring her blood sugars frequently at home. A1C 7.1%, Cr 0.6, eGFR> 60
Pt is awake, alert, oriented, sitting up in chair, c/o ongoing nausea and abd discomfort, able to discuss diabetes care plan.
Continues on TPN and soft diet, appetite is notably poor, barely eating anything from her tray.
Received 15 units NovoLog AC with corrective insulin, glucose range yesterday 233 to 294, requiring additional corrective insulin.
Will increase NovoLog from 15 units to 18 units change Q6 hrs to AC. Change diet to 1800 ramila. Cont low corrective insulin AC.
Fasting glucose today 222. Will increase HS Lantus to 50 units.
Farxiga on hold for now. Will closely monitor glucose trend and adjust insulin dose if necessary
Discussed with Nurse. Will cont to follow
Diabetes History
- -
Type of Diabetes: 2 requiring insulin
Pre-Admission Diabetes Regimen
01/09/25
07:57
Creatinine 0.6
Insulin Pump Settings
IP Diabetes Regimen
01/09/25 01/09/25 01/09/25
07:57 11:37 15:50
Glucose 246 H
POC Glucose 294 H 233 H
01/09/25 01/10/25 01/10/25
21:26 00:51 06:36
Glucose
POC Glucose 233 H 236 H 222 H
Meal type: Dinner
Meal type: Lunch
Amount consumed: 100%
Amount consumed: 10%
Patient Education
[2025-01-10] MEDS: NOVOLOG FLEXPEN 15 UNITS SC (08:39)
[2025-01-10] MEDS: NOVOLOG FLEXPEN-MODERATE RESISTANCE 3 UNITS SC (08:40)
[2025-01-10] MEDS: DIFLUCAN 200 MG 100 IV (08:45)
[2025-01-10] MEDS: NEURONTIN 300 MG PO (08:46)
[2025-01-10] MEDS: XANAX 0.5 MG PO ×2 (08:46→19:40)
[2025-01-10] MEDS: ASPIR LOW (ENTERIC COATED) 81 MG PO (08:46)
[2025-01-10] MEDS: LASIX 40 MG IV (08:46)
[2025-01-10] MEDS: ALDACTONE 25 MG PO (08:46)
[2025-01-10] MEDS: TOPROL XL 50 MG PO (08:46)
[2025-01-10] MEDS: ENTRESTO 49 MG/51 MG 1 TAB PO ×2 (08:46→19:40)
[2025-01-10] MEDS: HYDROCORTISONE 1% OINTMENT 1 APPLIC TOPICAL ×2 (08:47→19:40)
[2025-01-10] MEDS: DESENEX/MITRAZOL/ZEASORB 1 APPLIC TOPICAL ×2 (08:48→19:41)
[2025-01-10] MEDS: MAGIC OR MIRACLE MOUTHWASH 10 ML PO ×2 (08:48→12:28)
[2025-01-10] MEDS: REMOVE LIDOCAINE PATCH 1 PATCH REMOVE (08:48)
[2025-01-10] MEDS: OASIS 1 SPRAY PO (08:48)
[2025-01-10] MEDS: ROXICODONE ORAL SOLUTION 5 MG PO ×2 (09:10→15:21)
[2025-01-10 10:04] LABS: Hematocrit 38.2 % (37.0-47.0); Hemoglobin 12.8 g/dL (12.0-16.0); Mean Corp Hgb Conc. 33.5 g/dL (33.0-37.0); Mean Corpuscular Volume 99.5 fL (81.0-99.0); Platelet Count 137 10^3/uL (130-400); Red Cell Dist. Width 16.4 % (11.5-14.5)
--- NOTE | 2025-01-10 10:24 | W.PN.GS2 ---
Today's Communication / Plan
-
-- Supplement shakes as able
-- TPN
-- Psych consult
-- Transer to [facility] being considered for further Oncologic treatment
Assessment / Plan
-
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 Presenting d/t displaced gtube and removal with localized skin/soft tissue
infection
S/p I&D in OR on 01/03/2025
AFVSS
Leukopenia, slowly improving
Pain now well controlled, less anxious back on Xanax
Infection well controlled. Tolerating PO intake though low volume and still needs TPN. Considering transfer to [facility] for continued oncologic treatment. Continue with wound care and antibiotics as previously scheduled. Difficult time over the
past few months from this block as relates to her cancer treatment and clinical course. She has underlying psych issues and would recommend a Psychiatry consult for optimization of her medical management and verbal therapy as needed.
Plan:
-- Soft diet as tolerated (UPPER SHAPER following for odynophagia), supplement shakes
-- TPN renewed, will follow PO intakes and d/c once meeting nutritional needs
-- OK for PO meds, liquid formulations as able
-- Pain control: IV Dilaudid prn, Tylenol and Oxycodone scheduled with good results
-- Xanax at home dose, PRN Valium IV if unable to take PO Xanax
-- Abx as per ID
-- Local wound care: pack with gauze packing wet-to-dry. Change twice daily
-- PT evaluation
-- Psych consult
Subjective Data
-
Date of Service: January 10, 2025
Reports continued throat and abdominal discomfort. Passing flatus and BMs. No javi nausea or vomiting. Symptoms are more in line with odynophagia. No fevers.
Objective Data
-
Intake and Output
01/09/25 01/10/25 01/11/25
06:59 06:59 06:59
Intake Total 1010 / 1010 1600 / 1600
Output Total 850 / 850 1800 / 1800
Balance 160 / 160 -200 / -200
Intake:
Oral fluids 960 / 960 600 / 600
IV fluids (Total) 900 / 900
IV piggybacks 50 / 50 100 / 100
Output:
Urine, Voided 850 / 850 1800 / 1800
Other:
Number of approximated MODERATE 2 3
amounts of urine
Vital Signs
Temp Pulse Resp BP Pulse Ox
98.1 F 64 18 134/73 96
01/10/25 07:24 01/10/25 07:24 01/10/25 07:24 01/10/25 07:24 01/10/25 07:24
Lab Results
01/10/25 09:56
01/09/25 07:57
Calcium 9.0 mg/dl (8.4-10.2) 01/09/25 07:57
Phosphorus 3.1 mg/dl (2.5-4.5) 01/09/25 07:57
Magnesium 1.7 mg/dl (1.6-2.3) 01/09/25 07:57
Total Bilirubin 0.4 mg/dl (0.2-1.3) 01/06/25 05:50
AST 14 U/L (14-36) 01/06/25 05:50
ALT 12 U/L (0-35) 01/06/25 05:50
Alkaline Phosphatase 70 U/L (38-126) 01/06/25 05:50
Total Protein 5.7 g/dl (6.3-8.2) L 01/06/25 05:50
Albumin 3.3 g/dl (3.5-5.0) L 01/06/25 05:50
Physical Exam
-
Gen: NAD
Abd: soft, G-tube site c/d/i - no bilious drainage on dressing, no bleeding, minimal erythema, induration resolved, mild tenderness
Patient has a duval catheter: No
Patient has a central line: Yes
[2025-01-10 11:32] LABS: Glucose - Point of Care 371 mg/dl (70-99)
[2025-01-10] MEDS: OASIS PO ×3 (12:06→22:30)
[2025-01-10] MEDS: NOVOLOG FLEXPEN 18 UNITS SC ×2 (12:24→17:33)
[2025-01-10] MEDS: NOVOLOG FLEXPEN-MODERATE RESISTANCE 7 UNITS SC (12:25)
[2025-01-10] MEDS: IMODIUM 2 MG PO (12:28)
--- NOTE | 2025-01-10 13:57 | W.PN.ONC ---
Today's Communication / Plan
-
Continue supportive care; TPN, Magic Mouthwash, Oral hygiene, anti-emetics
Pending transfer to [facility] per Primary team
Impression
Impression
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
Type II diabetes mellitus
Chronic heart failure reduced EF
Essential Hypertension
Depression/Anxiety
Plan
Plan
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
-Patient continues to experience nausea and pain
-Continue supportive care - TPN, Magic Mouthwash, Oral hygiene, anti-emetics. Nausea is improved today
-Continue to encourage patient to take pain medications while she is awake to help maintain good pain control.
-Continue oral diet as tolerated. If she is continues to be unable to tolerate oral diet, alternatives will need to be discussed to maintain caloric intake
-WBC uptrending (3.1 today, low of 1.6 on 01/06/2025). Hold GCSF
-Per Primary Team, patient will be transferred to [facility] for further treatment with Dr. Weber. Primary team is coordinating transfer
-Outpatient, will need to determine if patient will resume radiation after d/c.
-Will continue to follow
Subjective/Objective
Subjective/Objective
Patient was sitting in her chair when I arrived. She reports improvement in her nausea compared to yesterday, though she continues to experience pain in her mouth/jaw and abdomen. The right side of her mouth and throat is still red on visual
inspection of her oral cavity without any new lesions. She became tearful while we were discussing her care, and was sad that her grandchildren have not contacted her at all while she has been in the hospital, and her family has not come often to
see her. She has been receiving few phone calls from her family while she has been hospitalized. She expressed a wish to just be at home with her family, but also stated she knows she is not well and would not be able to care for herself.
Vital Signs:
Vital Signs
Temp Pulse Resp BP Pulse Ox
98.1 F 64 18 134/73 96
01/10/25 07:24 01/10/25 07:24 01/10/25 07:24 01/10/25 07:24 01/10/25 07:24
Lab Results:
Laboratory Data
WBC 3.1 10^3/uL (4.8-10.8) L 01/10/25 09:56
Hgb 12.8 g/dL (12.0-16.0) 01/10/25 09:56
Plt Count 137 10^3/uL (130-400) 01/10/25 09:56
eGFR > 60.00 01/09/25 07:57
--- NOTE | 2025-01-10 14:27 | W.PN.ID1 ---
Date of Service
Date of Service: January 10, 2025
Today's Communication
Continue antibiotics
Assessment / Plan
Abdominal wall cellulitis/abscess secondary to dislodged PEG tube
- s/p I&D, washout (01/03/25)
Leukopenia - likely due to chemo
Tonsillar squamous cell carcinoma (XRT, chemo)
DM type II
CHF
HTN
Anxiety/depression
Recommendations:
12/31 Cutaneous wound swab: polymicrobial organisms.
01/03 s/p OR washout.
01/05 wound culture with Kleb oxytoca, strep mitis and C. albicans.
Patient with development of significant nausea on micafungin.
Micafungin discontinued with some mild improvement at this point
Patient tolerating Diflucan (d#3) / (d#5 antifungals) without issue.
Continue with Zosyn (d#11)
Local care to abd wound.
Follow WBC / temps.
For possible transfer to [facility] for continued Oncologic treatment.
����������������������������������������������������������
Chief Complaint
-: Other (Abd wall abscess)
Subjective / Review of Systems
Patient seen and examined. Still with some nausea, although noted to be improved.
Vital Signs / Physical Exam
Vital Signs
Vital Signs
Temp Pulse Resp BP Pulse Ox
98.1 F 64 18 134/73 96
01/10/25 07:24 01/10/25 07:24 01/10/25 07:24 01/10/25 07:24 01/10/25 07:24
Physical Exam
Constitutional: No Acute Distress, Comfortable and Non-toxic
Eyes: Sclera Anicteric
Pulmonary: Clear
Gastrointestinal: Distended
Extremities: Edema; Negative Cyanosis or Erythema
Wound: Other (left upper abdominal wound dressed)
Neurological: Awake and Alert
Psychological: Calm
Objective Data
Lab Data
Lab Results
01/10/25 09:56
01/09/25 07:57
Estimated Creat Clear 101 ml/min 01/09/25 07:57
Total Bilirubin 0.4 mg/dl (0.2-1.3) 01/06/25 05:50
AST 14 U/L (14-36) 01/06/25 05:50
ALT 12 U/L (0-35) 01/06/25 05:50
Alkaline Phosphatase 70 U/L (38-126) 01/06/25 05:50
Most recent labs reviewed.
Micro Results:
01/08/25 17:10 Salmonella/Shigella Culture - Final
Feces/Stool No Salmonella, Shigella, Aeromonas or Plesiomonas species
isolated.
Campylobacter Culture - Final
No Campylobacter species isolated.
Shiga Toxin Test - Final
No E. coli Shiga Toxin 1 or 2 detected.
01/08/25 17:10 C. difficile GDH Antigen & Toxins - Final
Feces/Stool Negative for toxigenic C.difficile
01/05/25 14:38 Wound Culture - Final
Abdomen Klebsiella oxytoca
Strep mitis/oralis
Rhina albicans
Gram Stain - Final
12/31/24 15:34 Blood Culture - Final
Blood/Venous No Growth - Final Report
12/31/24 15:34 Blood Culture - Final
Blood/Venous No Growth - Final Report
01/01/25 04:27 Urine Culture - Final
Urine NO GROWTH
12/31/24 17:25 Wound Culture - Final
Abdomen Proteus species
Escherichia coli
Gram negative bacilli
Enterococcus species
Viridans Streptococcus Group
Rhina albicans
Gram Stain - Final
Imaging:
12/31/2024 CT abdomen/pelvis: there is a focus of subcutaneous gas with adjacent cutaneous thickening and fat stranding which may represent a superficial infectious process, and is likely related to reported prior gastrostomy tube.
--- NOTE | 2025-01-10 14:48 | CM ---
CM reviewed chart, plan to transfer to [facility] when bed available.
CM will continue to follow for all discharge planing needs.
Plan; transfer to [facility] pending bed availability
[2025-01-10 15:00] VITALS: BP 118/56
--- NOTE | 2025-01-10 16:20 | PTOTSP ---
Speech-Language Therapy Evaluation
Pt seen in room with PO trials while seated upright in recliner. Pt reported intense masticatory pain and odynophagia. Pt reported declining all PO recently due to discomfort while chewing. Attempted trials of regular solids. Pt started chewing and
then expectorated food due to discomfort. Pt managed thins via straw with no overt s/sx of aspiration. Discussed temporarily downgrading diet to puree to encourage PO intake.� Pt in agreement.�
Recommend:
1. Downgrade to IDDSI 4 puree, continue thins. Pt can request to upgrade. Downgraded only due to intense pain while chewing, resulting in very limited PO intake.
2. Standard aspiration precautions
3. Meds as tolerated
4. HEAT SEALING MACHINE OPERATOR to follow
5. May consider VFSS in discharge setting due to ongoing chemoradiation, which may directly impact swallow function
[2025-01-10 16:27] LABS: Glucose - Point of Care 292 mg/dl (70-99)
[2025-01-10] MEDS: MAGIC OR MIRACLE MOUTHWASH PO ×2 (17:30→22:30)
[2025-01-10] MEDS: NOVOLOG FLEXPEN-MODERATE RESISTANCE 5 UNITS SC (17:34)
[2025-01-10] MEDS: LOVENOX 40 MG SC (17:37)
[2025-01-10 20:51] LABS: Glucose - Point of Care 209 mg/dl (70-99)
[2025-01-10] MEDS: LIDOCAINE 4% PATCH 2 PATCH TOPICAL (21:14)
[2025-01-10] MEDS: Parenteral Nutrition, Central 1560 IV (21:15)
[2025-01-10] MEDS: LANTUS 0.5 UNITS SC (21:18)
[2025-01-10] MEDS: DILAUDID 1 MG IV (22:05)
[2025-01-11] VITALS (7 sets, daily range): BP systolic 107–121; BP diastolic 48–65; PULSE 59; BMI 40.1
[2025-01-11 00:17] LABS: Glucose - Point of Care 217 mg/dl (70-99)
[2025-01-11] MEDS: ZOSYN 50 IV ×4 (04:45→22:08)
[2025-01-11 06:12] LABS: Glucose - Point of Care 270 mg/dl (70-99)
[2025-01-11 08:01] LABS: Glucose - Point of Care 225 mg/dl (70-99)
[2025-01-11] MEDS: DILAUDID 1 MG IV ×3 (08:46→17:56)
[2025-01-11] MEDS: NOVOLOG FLEXPEN-MODERATE RESISTANCE 3 UNITS SC (08:47)
[2025-01-11] MEDS: NOVOLOG FLEXPEN 18 UNITS SC ×2 (08:48→16:28)
[2025-01-11] MEDS: TOPROL XL 50 MG PO (08:50)
[2025-01-11] MEDS: LASIX 40 MG IV (08:51)
[2025-01-11] MEDS: ASPIR LOW (ENTERIC COATED) 81 MG PO (08:51)
[2025-01-11] MEDS: DIFLUCAN 200 MG 100 IV (08:51)
[2025-01-11] MEDS: XANAX 0.5 MG PO ×2 (08:51→20:41)
[2025-01-11] MEDS: ALDACTONE 25 MG PO (08:51)
[2025-01-11] MEDS: ENTRESTO 49 MG/51 MG 1 TAB PO ×2 (08:51→20:40)
[2025-01-11] MEDS: HYDROCORTISONE 1% OINTMENT TOPICAL ×2 (09:00→20:42)
[2025-01-11] MEDS: ZOFRAN 4 MG IV ×2 (09:00→21:06)
[2025-01-11] MEDS: NEURONTIN PO (09:14)
[2025-01-11] MEDS: OASIS PO ×4 (09:14→20:49)
[2025-01-11] MEDS: MAGIC OR MIRACLE MOUTHWASH PO ×4 (09:14→20:49)
[2025-01-11 09:39] LABS: Hematocrit 37.5 % (37.0-47.0); Hemoglobin 12.3 g/dL (12.0-16.0); Mean Corp Hgb Conc. 32.8 g/dL (33.0-37.0); Mean Corpuscular Volume 101.6 fL (81.0-99.0); Platelet Count 132 10^3/uL (130-400); Red Cell Dist. Width 16.5 % (11.5-14.5)
[2025-01-11 09:52] LABS: Blood Urea Nitrogen 32 mg/dl (7-17); Calcium 9.7 mg/dl (8.4-10.2); Carbon Dioxide 29 mmol/L (22-30); Chloride 100 mmol/L (98-107); Estimated Creatinine Clearance 102 ml/min; Glucose 310 mg/dl (70-99); Magnesium 1.7 mg/dl (1.6-2.3); Potassium 5.0 mmol/L (3.5-5.1); Sodium 134 mmol/L (135-145); eGFR > 60.00
--- NOTE | 2025-01-11 09:55 | W.PN.HOSP.TC ---
Addendum entered and electronically signed by Fletcher Bellamy MD 01/11/25 12:12:
change antiemetic
per id transition micafungin to diflucan d4/5
per ID antiobioitcs duration d12/?
follow speech rec
continue tpn untill meeting nutritional needs
Plan to transition to [facility], already called transfer center, have been waiting for callback
- Dr. Griggs spoke with Dr. Gus hall at [facility] who is aware of the patient and would like to bring them over in order to come continue radiation therapy.
Original Note:
Today's Communication/Plan
-
Waiting for bed availability to Transfer
Assessment / Plan
Assessment / Plan
Assessment:
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 She was seen by radiation oncology who told her to go to the
ED due to the PEG site looking infected. Patient continued to have drainage from the area and area around the PEG seem to be infected. She was started on IV antibiotics and underwent surgical exploration/debridement. Soft diet as tolerated,
continue TPN until adequate oral intake.
Plan:
# Abdominal wall cellulitis secondary to G-tube dislodgment
- 01/03 Surgery: Operative debridement and drainage
- CT abdomen:There is a focus of subcutaneous gas with adjacent cutaneous thickening and fat stranding which may represent a superficial infectious process and is likely related to reported gastrostomy tube.
- Local wound care: pack with Iodoform packing and cover with dry gauze BID
- Continue monitoring CBC, temperature curve
- ID consulted, input appreciated
- Continue IV Zosyn D12, Start Diflucan D4
- Abdomen Wound Cx: Gr neg bacilli, Eneterecoccus species, Rhina albicans
- Soft diet as tolerated
- Speech evaluating
- TPN renewed, follow PO intake
- PT/OT
#Primary tonsillar SCC, Post-radiation stomatitis/pharyngitis
- Pancytopenia due to chemotherapy, continued worsened leukopenia today
- Consult oncology, input appreciated
- Dexamethasone 1mg PO QID- discontinued
- Start Magic Mouthwash
- Clotrimazole 10mg PO TID- thrush prophylaxis
- Graball Shandon
- Monitor cbc
- dermatitis tqtt-gwaegaiug-Gvjbofqtyqjuwv 1% topical BID
- Dr. Romero primary oncologist- WBC trending up hold on GCSF, continue weekly Cisplatin if able
-Transfer to [facility]- rad onc Dr. Weber- further oncologic treatment
-Very emotional regarding things happening to her- consulted [facility] for general support
#Dislodged Gastrotomy Tube
- Surgery Consulted - Tube unable to be replaced in ED- patient declines tube
- Speech Language Pathology, Nutrition eval
- PICC and TPN to bridge her to oral tolerance
- Continue TPN
- Follow Electrolyte abnormalities-- replete prn
#New onset Vomiting
-Anti emetics
-Obstruction studies- No acute disease of the chest. No evidence of intestinal obstruction.
-Discontinue Micafungin could be related to potential side effect
-Order ECG-- Check QT-- prolonged QT- Today repeat ECG 440-- continue ondansetron prn
-Discontinue Tigan
-Resolved
#New onset diarrhea
- Stool Studies- negative for C. Diff, culture- negative
- Start Imodium- she uses it at home as well
- Decrease in frequency
#Chronic HFrEF
#Dilated Cardiomyopathy
- IV Furosemide 40mg IV QD
- Hold Entresto and dapagliflozin
- Monitor Daily Weights
#Diabetes Mellitus, Type II with Diabetic Neuropathy
-Insulin Aspart per protocol
-Insulin Aspart 10U Q6h
-Insulin Glargine 40U SQ
-Consult Diabetes MANAGER PERFORMANCE IMPROVEMENT, input appreciated
-Monitor glucose
# Hypomagnesemia
# Hypokalemia
- Monitor and replete
#Essential Hypertension
-Hydralazine PRN
-Monitor blood pressure
#Depression / Anxiety
-Alprazolam 0.5mg PO BID
-1mg IV Valium Q12h PRN
DVT Proph: Lovenox
Full code
Anticipated Discharge: 24 - 48 hours
Subjective/Interval History
-
Date of Service: January 11, 2025
She has improved appetite was able to drink half of ensure, 1 cup of broth and ate some mashed potatoes yesterday. She has a little bit nausea but not as bad comparing to before. Her throat still hurts with swallowing. Denies vomiting. Frequency of
bm decreased to 1. Waiting for bed availability from [facility] to transfer.
Objective Data
-
Labs:
Laboratory Results
01/11/25
08:55
WBC 2.5 L
Hgb 12.3
Hct 37.5
Plt Count 132
Sodium 134 L
Potassium 5.0
Chloride 100
Carbon Dioxide 29
BUN 32 H
Creatinine 0.6
Glucose 310 H
Calcium 9.7
Vital Signs:
Vital Signs
Temp Pulse Resp BP Pulse Ox
97.5 F 64 20 117/65 100
01/11/25 07:40 01/11/25 08:50 01/11/25 07:40 01/11/25 07:40 01/11/25 07:40
I&O
01/10/25 01/11/25 01/12/25
06:59 06:59 06:59
Intake Total 3210 / 3210 3350 / 3350
Output Total 1800 / 1800
Balance 1410 / 1410 3350 / 3350
Review of Systems
-
History Source: Patient
Constitutional: Reports No Symptoms
EENT: Reports Sore Throat and Mouth Pain (jaw pain)
Respiratory: Reports No Symptoms
Cardiac: Reports No Symptoms
Abdomen/GI: Reports Diarrhea
Genitourinary: Reports No Symptoms
Musculoskeletal: Reports Joint Pain (Right jaw pain)
Neuro: Reports No Symptoms
Endocrine: Reports No Symptoms
Hematologic / Lymphatic: Reports No Symptoms
Psych: Reports Sad and Anxious
Physical Exam
-
General: Well Developed, Well Nourished, Appears in Distress, Pain, Conversant and Morbidly Obese
HEENT: Normocephalic and Atraumatic
Respiratory: Clear to Auscultation
Cardiac: Regular Rhythm and S1/S2
GI: Soft, Nondistended and Tender
Rectal: Deferred by Provider
Genito-urinary: Deferred by me
Musculoskeletal: No Clubbing, No Cyanosis and No Edema
Skin: Warm
Neuro: Awake, Alert, Oriented and AO x 3
Psych: Agitated
[2025-01-11] MEDS: DESENEX/MITRAZOL/ZEASORB 1 APPLIC TOPICAL (11:40)
[2025-01-11] MEDS: REMOVE LIDOCAINE PATCH 2 PATCH REMOVE (11:40)
--- NOTE | 2025-01-11 12:50 | CHAP ---
Received request for hair sample matcher visit. Ina was struggling to eat what was on her meal tray at the time. She shared her feelings of discouragement and her tears. She said she feels like she's getting worse, and being at [place] will seem 'far from
home.' Asked what gives her hope, she recalled that she was told 'there is a 95% chance of a cure.' We reflected on that, and Ina welcomed prayer. Emotional and spiritual support provided, along with assurance of our on-going availability.
--- NOTE | 2025-01-11 12:57 | W.PN.UPDATE ---
Update Note
Progress Note Update
Psychiatric evaluation dictated.
Patient cretainly admits to being depressed, mostly related to all her numerous medical problems. Denies hopelessness or suicidal thoughts.
Was apparently put of Oristiq wich is non formulary here but states she cannot swallow it and it cannot be crushed. I will try Zoloft 50 mg hs. discussed side effects.
Will F/.U.
[2025-01-11] MEDS: NOVOLOG FLEXPEN SC (14:42)
[2025-01-11] MEDS: NOVOLOG FLEXPEN-MODERATE RESISTANCE SC (14:43)
--- NOTE | 2025-01-11 15:36 | W.PN.SURGUPD ---
Surgical Update
Surgical Update
Chart reviewed. Labs reviewed.
-- TPN reordered, awaiting more durable oral intake prior to discontinuing.
-- Continue with local wound care and antibiotics.
[2025-01-11 16:16] LABS: Glucose - Point of Care 357 mg/dl (70-99)
[2025-01-11] MEDS: NOVOLOG FLEXPEN-MODERATE RESISTANCE 7 UNITS SC (16:27)
[2025-01-11] MEDS: LOVENOX 40 MG SC (17:56)
[2025-01-11] MEDS: ZOLOFT 50 MG PO (20:41)
[2025-01-11] MEDS: DESENEX/MITRAZOL/ZEASORB TOPICAL (20:43)
[2025-01-11] MEDS: LIDOCAINE 4% PATCH 2 PATCH TOPICAL (20:57)
[2025-01-11] MEDS: Parenteral Nutrition, Central 1560 IV (21:32)
[2025-01-12 00:17] LABS: Glucose - Point of Care 262 mg/dl (70-99)
[2025-01-12] MEDS: LANTUS 0.5 UNITS SC ×2 (00:18→23:27)
[2025-01-12] MEDS: ZOSYN 50 IV ×4 (04:28→21:27)
[2025-01-12] MEDS: FLUSH (NSS) 2 FLUSH IV (04:28)
[2025-01-12 06:00] VITALS: BMI 39.8
[2025-01-12] MEDS: ZOFRAN 4 MG IV (07:18)
[2025-01-12 07:47] LABS: Glucose - Point of Care 310 mg/dl (70-99)
[2025-01-12 08:00] VITALS: BP 129/55
[2025-01-12] MEDS: NOVOLOG FLEXPEN 18 UNITS SC ×2 (08:25→12:33)
[2025-01-12] MEDS: TIGAN 200 MG IM ×2 (08:25→20:19)
[2025-01-12] MEDS: NOVOLOG FLEXPEN-MODERATE RESISTANCE SC (08:26)
[2025-01-12] MEDS: LASIX 40 MG IV (08:27)
[2025-01-12] MEDS: DESENEX/MITRAZOL/ZEASORB 1 APPLIC TOPICAL ×2 (08:27→20:16)
[2025-01-12] MEDS: HYDROCORTISONE 1% OINTMENT TOPICAL ×2 (08:27→20:12)
[2025-01-12] MEDS: REMOVE LIDOCAINE PATCH 2 PATCH REMOVE (08:28)
[2025-01-12] MEDS: OASIS PO ×4 (08:28→21:27)
[2025-01-12] MEDS: MAGIC OR MIRACLE MOUTHWASH PO ×4 (08:28→21:27)
[2025-01-12] MEDS: DIFLUCAN 200 MG 100 IV (08:45)
--- NOTE | 2025-01-12 08:51 | W.PN.HOSP.TC ---
Addendum entered and electronically signed by Fletcher Bellamy MD 01/12/25 11:10:
see update note
Original Note:
Today's Communication/Plan
-
Hyperkalemia- check ecg
Continue TPN
Supportive care
Waiting for transfer to [facility]- will update son today
Assessment / Plan
Assessment / Plan
Assessment:
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 She was seen by radiation oncology who told her to go to the
ED due to the PEG site looking infected. Patient continued to have drainage from the area and area around the PEG seem to be infected. She was started on IV antibiotics and underwent surgical exploration/debridement. Soft diet as tolerated,
continue TPN until adequate oral intake.
Plan:
# Abdominal wall cellulitis secondary to G-tube dislodgment
- 01/03 Surgery: Operative debridement and drainage
- CT abdomen:There is a focus of subcutaneous gas with adjacent cutaneous thickening and fat stranding which may represent a superficial infectious process and is likely related to reported gastrostomy tube.
- Local wound care: pack with Iodoform packing and cover with dry gauze BID
- Continue monitoring CBC, temperature curve
- ID consulted, input appreciated
- Continue IV Zosyn D12, Start Diflucan D4
- Abdomen Wound Cx: Gr neg bacilli, Eneterecoccus species, Rhina albicans
- Soft diet as tolerated
- Speech evaluating
- TPN renewed, follow PO intake
- PT/OT
#Primary tonsillar SCC, Post-radiation stomatitis/pharyngitis
- Pancytopenia due to chemotherapy, continued worsened leukopenia today
- Consult oncology, input appreciated
- Dexamethasone 1mg PO QID- discontinued
- Start Magic Mouthwash
- Clotrimazole 10mg PO TID- thrush prophylaxis
- Lagro Scroggins
- Monitor cbc
- dermatitis brpq-nrzrggxiw-Attgdweyeqejgy 1% topical BID
- Dr. Romero primary oncologist- WBC trending up hold on GCSF, continue weekly Cisplatin if able
-Transfer to [facility]- rad onc Dr. Weber- further oncologic treatment
-Very emotional regarding things happening to her- consulted [facility] for general support
#Dislodged Gastrotomy Tube
- Surgery Consulted - Tube unable to be replaced in ED- patient declines tube
- Speech Language Pathology, Nutrition eval
- PICC and TPN to bridge her to oral tolerance
- Continue TPN
- Follow Electrolyte abnormalities-- replete prn
#New onset Vomiting
#Nausea
-Anti emetics
-Obstruction studies- No acute disease of the chest. No evidence of intestinal obstruction.
-Discontinue Micafungin could be related to potential side effect
-Order ECG-- Check QT-- prolonged QT- Today repeat ECG 440-- continue ondansetron prn - did not improve Continue Tigan prn
-Vomiting resolved-- still has nausea
#New onset diarrhea
- Stool Studies- negative for C. Diff, culture- negative
- Start Imodium- she uses it at home as well
- Decrease in frequency
#Chronic HFrEF
#Dilated Cardiomyopathy
- IV Furosemide 40mg IV QD
- Hold Entresto and dapagliflozin
- Monitor Daily Weights
#Diabetes Mellitus, Type II with Diabetic Neuropathy
-Insulin Aspart per protocol
-Insulin Aspart 10U Q6h
-Insulin Glargine 40U SQ
-Consult Diabetes AIRCRAFT METALSMITH, input appreciated
-Monitor glucose
#Hyperkalemia
- check ECG
# Hypomagnesemia
# Hypokalemia
- Monitor and replete
#Essential Hypertension
-Hydralazine PRN
-Monitor blood pressure
#Depression / Anxiety
-Alprazolam 0.5mg PO BID
-1mg IV Valium Q12h PRN
DVT Proph: Lovenox
Full code
Anticipated Discharge: 24 - 48 hours
Subjective/Interval History
-
Date of Service: January 12, 2025
She has nausea and dry heaves. Denies vomiting. She was able to eat some food yesterday but can not remember what she had. She had 3 bm yesterday. She still has sore throat.
Objective Data
-
Labs:
Laboratory Results
01/12/25
06:00
WBC Pending
Hgb Pending
Hct Pending
Plt Count Pending
Sodium Pending
Potassium Pending
Chloride Pending
Carbon Dioxide Pending
BUN Pending
Creatinine Pending
Glucose Pending
Calcium Pending
Vital Signs:
Vital Signs
Temp Pulse Resp BP Pulse Ox
98.3 F 59 16 129/55 98
01/11/25 23:43 01/12/25 08:27 01/11/25 23:43 01/12/25 08:27 01/11/25 23:43
I&O
01/11/25 01/12/25 01/13/25
06:59 06:59 06:59
Intake Total 3350 / 3350 2400 / 2400
Balance 3350 / 3350 2400 / 2400
Review of Systems
-
History Source: Patient
Constitutional: Reports No Symptoms
EENT: Reports Sore Throat and Mouth Pain (jaw pain)
Respiratory: Reports No Symptoms
Cardiac: Reports No Symptoms
Abdomen/GI: Reports Diarrhea
Genitourinary: Reports No Symptoms
Musculoskeletal: Reports Joint Pain (Right jaw pain)
Neuro: Reports No Symptoms
Endocrine: Reports No Symptoms
Hematologic / Lymphatic: Reports No Symptoms
Psych: Reports Sad and Anxious
Physical Exam
-
General: Well Developed, Well Nourished, Appears in Distress, Pain, Conversant and Morbidly Obese
HEENT: Normocephalic and Atraumatic
Respiratory: Clear to Auscultation
Cardiac: Regular Rhythm and S1/S2
GI: Soft, Nondistended and Tender
Rectal: Deferred by Provider
Genito-urinary: Deferred by me
Musculoskeletal: No Clubbing, No Cyanosis and No Edema
Skin: Warm
Neuro: Awake, Alert, Oriented and AO x 3
Psych: Agitated
[2025-01-12] MEDS: DILAUDID 1 MG IV ×4 (08:55→20:25)
[2025-01-12] MEDS: VALIUM INJECTION 1 MG IV (08:55)
[2025-01-12] MEDS: XANAX PO (08:56)
[2025-01-12] MEDS: ALDACTONE PO (09:29)
[2025-01-12] MEDS: ASPIR LOW (ENTERIC COATED) PO (09:33)
[2025-01-12] MEDS: NEURONTIN PO (09:34)
[2025-01-12] MEDS: ENTRESTO 49 MG/51 MG PO (09:34)
[2025-01-12] MEDS: TOPROL XL PO (09:34)
--- NOTE | 2025-01-12 10:08 | W.PN.UPDATE ---
Update Note
Progress Note Update
Patient is about the same as yesterday, constantly distressed about her medical problems and asking questions regarding why one proble is better and another emerges. In her situation it is understandable; yet she has difficulty in finding any
positive aspects to her situation. Denies suicidal thoughts but admits to episodes of hopelessness.
I tried to talk to her about mindfulness techniques without success.
Zoloft started yesterday; too early to assess effectiveness.
[2025-01-12 10:30] LABS: Hematocrit 39.8 % (37.0-47.0); Hemoglobin 13.3 g/dL (12.0-16.0); Mean Corp Hgb Conc. 33.4 g/dL (33.0-37.0); Mean Corpuscular Volume 98.5 fL (81.0-99.0); Platelet Count 147 10^3/uL (130-400); Red Cell Dist. Width 16.7 % (11.5-14.5)
[2025-01-12 10:52] LABS: Blood Urea Nitrogen 34 mg/dl (7-17); Calcium 10.0 mg/dl (8.4-10.2); Carbon Dioxide 25 mmol/L (22-30); Chloride 99 mmol/L (98-107); Estimated Creatinine Clearance 101 ml/min; Glucose 390 mg/dl (70-99); Potassium 5.5 mmol/L (3.5-5.1); Sodium 133 mmol/L (135-145); eGFR > 60.00
--- NOTE | 2025-01-12 11:05 | W.PN.UPDATE ---
Update Note
Progress Note Update
per id transition micafungin to diflucan d5/5
per ID antiobioitcs duration d13/?
follow speech rec
continue tpn untill meeting nutritional needs
Plan to transition to [facility], already called transfer center, have been waiting for callback
- Dr. Griggs spoke with Dr. Gus hall at [facility] who is aware of the patient and would like to bring them over in order to come continue radiation therapy.
[2025-01-12 11:27] LABS: Glucose - Point of Care 421 mg/dl (70-99)
--- NOTE | 2025-01-12 11:30 | W.PN.SURGUPD ---
Surgical Update
Surgical Update
Chart reviewed. Labs reviewed.
-- TPN reordered, awaiting more durable oral intake prior to discontinuing.
-- Continue with local wound care and antibiotics.
-- SQ insulin changed to q6h for TPN dosing, pt not eating much. Continue SSI even if not tolerating meals given elevated BG.
[2025-01-12 12:31] LABS: Glucose 404 mg/dl (70-99)
[2025-01-12] MEDS: NOVOLOG FLEXPEN-MODERATE RESISTANCE 11 UNITS SC (12:32)
[2025-01-12 16:00] VITALS: BP 131/57
[2025-01-12] MEDS: LOKELMA 10 GRAM PO (16:27)
[2025-01-12] MEDS: ROXICODONE ORAL SOLUTION 5 MG PO (17:06)
[2025-01-12] MEDS: LOVENOX 40 MG SC (17:07)
[2025-01-12 17:59] LABS: Glucose - Point of Care 292 mg/dl (70-99)
[2025-01-12] MEDS: NOVOLOG FLEXPEN 21 UNITS SC ×2 (18:00→23:27)
[2025-01-12] MEDS: NOVOLOG FLEXPEN-MODERATE RESISTANCE 5 UNITS SC (18:00)
[2025-01-12] MEDS: XANAX 0.5 MG PO (20:16)
[2025-01-12] MEDS: ENTRESTO 49 MG/51 MG 1 TAB PO (20:23)
[2025-01-12] MEDS: Parenteral Nutrition, Central 1340 IV (21:20)
[2025-01-12] MEDS: LIDOCAINE 4% PATCH 2 PATCH TOPICAL (21:26)
[2025-01-12] MEDS: ZOLOFT 50 MG PO (21:27)
[2025-01-12 23:26] LABS: Glucose - Point of Care 310 mg/dl (70-99)
[2025-01-12] MEDS: NOVOLOG FLEXPEN-MODERATE RESISTANCE 7 UNITS SC (23:28)
[2025-01-12 23:37] VITALS: BP 104/50
[2025-01-13] MEDS: ZOSYN 50 IV ×2 (04:51→10:31)
[2025-01-13 06:00] VITALS: BMI 39.6
[2025-01-13 06:16] LABS: Glucose - Point of Care 244 mg/dl (70-99)
[2025-01-13] MEDS: NOVOLOG FLEXPEN-MODERATE RESISTANCE 3 UNITS SC (06:25)
[2025-01-13] MEDS: NOVOLOG FLEXPEN 21 UNITS SC (06:26)
[2025-01-13 07:03] VITALS: BP 116/62
--- NOTE | 2025-01-13 08:16 | PN.DE.MGMTRT ---
Insulin Management
- -
01/13/2025: Diabetes Management Follow up
Patient admitted on 12/31 for abd wall cellulitis s/p recent G tube placement. PMH: Tonsillar squamous cell carcinoma on chemotherapy and XRT with PEG placement on 12/12/2024 which became dislodged, S/P surgical exploration and debridement. Now on TPN,
contributing to hyperglycemia. Prior to admission was taking SoloStar 22 units AC, Basaglar 50 units @ HS Ozempic 0.5mg Q Monday and Farxiga 10mg daily. States she was monitoring her blood sugars frequently at home. A1C 7.1%, Cr 0.6, eGFR> 60
Pt is awake, alert, oriented, sitting up in chair, c/o ongoing nausea and abd discomfort, able to discuss diabetes care plan.
Continues on TPN and soft diet, appetite is notably poor, barely eating anything from her tray.
Received 21 units NovoLog Q6 with corrective insulin, glucose range yesterday 292 to 421, requiring 3-11 units of additional corrective insulin.
Will increase NovoLog from 21 units to 25 units Q6 hrs. Cont low corrective insulin AC.
Fasting glucose today 244. Will increase HS Lantus to 55 units.
Farxiga on hold for now. Will closely monitor glucose trend and adjust insulin dose if necessary
Discussed with Nurse. Will cont to follow
Diabetes History
- -
Type of Diabetes: 2 requiring insulin
Pre-Admission Diabetes Regimen
01/12/25
09:48
Creatinine 0.6
Insulin Pump Settings
IP Diabetes Regimen
01/12/25 01/12/25 01/12/25
09:48 11:26 11:53
Glucose 390 H 404 H
POC Glucose 421 H
01/12/25 01/12/25 01/13/25
17:58 23:24 06:14
Glucose
POC Glucose 292 H 310 H 244 H
Meal type: Dinner
Meal type: Lunch
Meal type: Breakfast
Amount consumed: 50%
Amount consumed: Patient refused
Amount consumed: 0
Patient Education
[2025-01-13 08:26] LABS: Hematocrit 37.9 % (37.0-47.0); Hemoglobin 12.6 g/dL (12.0-16.0); Mean Corp Hgb Conc. 33.2 g/dL (33.0-37.0); Mean Corpuscular Volume 102.2 fL (81.0-99.0); Platelet Count 139 10^3/uL (130-400); Red Cell Dist. Width 16.6 % (11.5-14.5)
[2025-01-13] MEDS: DIFLUCAN 200 MG 100 IV (08:28)
[2025-01-13] MEDS: ALDACTONE 25 MG PO (08:29)
[2025-01-13] MEDS: ASPIR LOW (ENTERIC COATED) 81 MG PO (08:29)
[2025-01-13] MEDS: NEURONTIN 300 MG PO (08:29)
[2025-01-13] MEDS: TOPROL XL 50 MG PO (08:30)
[2025-01-13] MEDS: XANAX 0.5 MG PO (08:30)
[2025-01-13] MEDS: LASIX 40 MG IV (08:30)
[2025-01-13] MEDS: ENTRESTO 49 MG/51 MG 1 TAB PO (08:30)
[2025-01-13] MEDS: OASIS PO ×2 (08:31→11:42)
[2025-01-13] MEDS: HYDROCORTISONE 1% OINTMENT 1 APPLIC TOPICAL (08:31)
[2025-01-13] MEDS: REMOVE LIDOCAINE PATCH 2 PATCH REMOVE (08:32)
[2025-01-13] MEDS: MAGIC OR MIRACLE MOUTHWASH PO ×2 (08:32→11:42)
[2025-01-13] MEDS: DESENEX/MITRAZOL/ZEASORB 1 APPLIC TOPICAL (08:36)
[2025-01-13] MEDS: ZOFRAN 4 MG IV ×2 (08:47→14:08)
[2025-01-13] MEDS: DILAUDID 1 MG IV ×2 (08:47→14:13)
[2025-01-13 09:04] LABS: ALT (SGPT) 15 U/L (0-35); AST (SGOT) 21 U/L (14-36); Albumin 3.8 g/dl (3.5-5.0); Alkaline Phosphatase 96 U/L (38-126); Blood Urea Nitrogen 40 mg/dl (7-17); Calcium 9.9 mg/dl (8.4-10.2); Carbon Dioxide 27 mmol/L (22-30); Chloride 99 mmol/L (98-107); Estimated Creatinine Clearance 86 ml/min; Glucose 274 mg/dl (70-99); Magnesium 2.0 mg/dl (1.6-2.3); Potassium 5.0 mmol/L (3.5-5.1); Sodium 133 mmol/L (135-145); Total Protein 6.6 g/dl (6.3-8.2); Triglycerides 246 mg/dl (10-149); eGFR > 60.00
--- NOTE | 2025-01-13 09:15 | W.PN.ONC ---
Today's Communication / Plan
-
Transfer to [facility]
Impression
Impression
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
Type II diabetes mellitus
Chronic heart failure reduced EF
Essential Hypertension
Depression/Anxiety
Plan
Plan
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
-Patient continues to experience nausea and pain
-Continue supportive care - TPN, Magic Mouthwash, Oral hygiene, anti-emetics. Nausea is the same as it was over the weekend
-Continue to encourage patient to take pain medications while she is awake to help maintain good pain control.
-Continue oral diet as tolerated. If she is continues to be unable to tolerate oral diet, alternatives will need to be discussed to maintain caloric intake
-WBC stable (2.9 today, low of 1.6 on 01/06/2025). Hold GCSF
-Per Primary Team, patient will be transferred to [facility] for further radiation treatment with Dr. Weber today. Will assist with coordinating transfer as needed
-Will continue to follow
Subjective/Objective
Subjective/Objective
Patient was tearful when I arrived. She continues to suffer from nausea and pain, which is unchanged from over the weekend. She expresses particular worries because previously she had been very independent and self-sufficient, and has now been in
the hospital for several days unable to care for herself or others around her. Much of today's visit was spent providing emotional support, and her physical symptoms remain largely unchanged.
Vital Signs:
Vital Signs
Temp Pulse Resp BP Pulse Ox
97.4 F 63 20 116/62 99
01/13/25 07:03 01/13/25 08:29 01/13/25 07:03 01/13/25 08:29 01/13/25 07:03
Lab Results:
Laboratory Data
WBC 2.9 10^3/uL (4.8-10.8) L 01/13/25 08:08
Hgb 12.6 g/dL (12.0-16.0) 01/13/25 08:08
Plt Count 139 10^3/uL (130-400) 01/13/25 08:08
eGFR > 60.00 01/13/25 08:08
--- NOTE | 2025-01-13 09:24 | CM ---
Addendum entered by Alexsandra Spaulding 01/13/25 09:34:
CM spoke with patient son and update provided re pending transfer.
Original Note:
Patient for transfer to [place] today per community outreach worker. All paperwork completed per nursing. CM spoke with patient who indicated that she was not doing well but did not want to talk to nursing or avi. CM will continue to follow for discharge planning
needs.
Plan: transfer to [facility] today at 2pm per nursing.
--- NOTE | 2025-01-13 10:07 | W.PN.HOSP.TC ---
Today's Communication/Plan
-
Today Transfer at 2pm
Assessment / Plan
Assessment / Plan
Assessment:
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 She was seen by radiation oncology who told her to go to the
ED due to the PEG site looking infected. Patient continued to have drainage from the area and area around the PEG seem to be infected. She was started on IV antibiotics and underwent surgical exploration/debridement. Soft diet as tolerated,
continue TPN until adequate oral intake.
Plan:
# Abdominal wall cellulitis secondary to G-tube dislodgment
- 01/03 Surgery: Operative debridement and drainage
- CT abdomen:There is a focus of subcutaneous gas with adjacent cutaneous thickening and fat stranding which may represent a superficial infectious process and is likely related to reported gastrostomy tube.
- Local wound care: pack with Iodoform packing and cover with dry gauze BID
- Continue monitoring CBC, temperature curve
- ID consulted, input appreciated
- Continue IV Zosyn D14, Start Diflucan D6
- Abdomen Wound Cx: Gr neg bacilli, Eneterecoccus species, Rhina albicans
- Soft diet as tolerated
- Speech evaluating
- TPN renewed, follow PO intake
- PT/OT
#Primary tonsillar SCC, Post-radiation stomatitis/pharyngitis
- Pancytopenia due to chemotherapy, continued worsened leukopenia today
- Consult oncology, input appreciated
- Dexamethasone 1mg PO QID- discontinued
- Start Magic Mouthwash
- Clotrimazole 10mg PO TID- thrush prophylaxis
- Holcomb Regina
- Monitor cbc
- dermatitis ibzf-kaxkbltcm-Qzjuvkwrirqcqb 1% topical BID
- Dr. Romero primary oncologist- WBC trending up hold on GCSF, continue weekly Cisplatin if able
-Transfer to [facility]- rad onc Dr. Weber- further oncologic treatment
-Very emotional regarding things happening to her- consulted [facility] for general support
#Dislodged Gastrotomy Tube
- Surgery Consulted - Tube unable to be replaced in ED- patient declines tube
- Speech Language Pathology, Nutrition eval
- PICC and TPN to bridge her to oral tolerance
- Continue TPN
- Follow Electrolyte abnormalities-- replete prn
#New onset Vomiting
#Nausea
-Anti emetics
-Obstruction studies- No acute disease of the chest. No evidence of intestinal obstruction.
-Discontinue Micafungin could be related to potential side effect
-Order ECG-- Check QT-- prolonged QT- Today repeat ECG 440-- continue ondansetron prn - did not improve- start Reglan prn
-Vomiting resolved-- still has nausea
#New onset diarrhea
- Stool Studies- negative for C. Diff, culture- negative
- Start Imodium- she uses it at home as well
- Decrease in frequency
#Chronic HFrEF
#Dilated Cardiomyopathy
- IV Furosemide 40mg IV QD
- Hold Entresto and dapagliflozin
- Monitor Daily Weights
#Diabetes Mellitus, Type II with Diabetic Neuropathy
-Insulin Aspart per protocol
-Insulin Aspart 25U Q6h
-Insulin Glargine 55U SQ
-Consult Diabetes [employer], input appreciated
-Monitor glucose
#Hyperkalemia
- check ECG
# Hypomagnesemia
# Hypokalemia
- Monitor and replete
#Essential Hypertension
-Hydralazine PRN
-Monitor blood pressure
#Depression / Anxiety
-Alprazolam 0.5mg PO BID
-1mg IV Valium Q12h PRN
DVT Proph: Lovenox
Full code
Anticipated Discharge: Today
Subjective/Interval History
-
Date of Service: January 13, 2025
She has nausea and right jaw pain. She has difficulty with swallowing food because of her sore throat. She denies vomiting or abdominal pain. She had 3 bm. She is waiting to be transferred today.
Objective Data
-
Labs:
Laboratory Results
01/13/25
08:08
WBC 2.9 L
Hgb 12.6
Hct 37.9
Plt Count 139
Sodium 133 L
Potassium 5.0
Chloride 99
Carbon Dioxide 27
BUN 40 H
Creatinine 0.7
Glucose 274 H
Calcium 9.9
Total Bilirubin 0.5
AST 21
ALT 15
Alkaline Phosphatase 96
Vital Signs:
Vital Signs
Temp Pulse Resp BP Pulse Ox
97.4 F 63 20 116/62 99
01/13/25 07:03 01/13/25 08:29 01/13/25 07:03 01/13/25 08:29 01/13/25 07:03
I&O
01/12/25 01/13/25 01/14/25
06:59 06:59 06:59
Intake Total 2400 / 2400 3382 / 3382
Balance 2400 / 2400 3382 / 3382
Review of Systems
-
History Source: Patient
Constitutional: Reports No Symptoms
EENT: Reports Sore Throat and Mouth Pain (jaw pain)
Respiratory: Reports No Symptoms
Cardiac: Reports No Symptoms
Abdomen/GI: Reports Diarrhea
Genitourinary: Reports No Symptoms
Musculoskeletal: Reports Joint Pain (Right jaw pain)
Neuro: Reports No Symptoms
Endocrine: Reports No Symptoms
Hematologic / Lymphatic: Reports No Symptoms
Psych: Reports Sad and Anxious
Physical Exam
-
General: Well Developed, Well Nourished, Appears in Distress, Pain, Conversant and Morbidly Obese
HEENT: Normocephalic and Atraumatic
Respiratory: Clear to Auscultation
Cardiac: Regular Rhythm and S1/S2
GI: Soft, Nondistended and Tender
Rectal: Deferred by Provider
Genito-urinary: Deferred by me
Musculoskeletal: No Clubbing, No Cyanosis and No Edema
Skin: Warm
Neuro: Awake, Alert, Oriented and AO x 3
Psych: Agitated
[2025-01-13] MEDS: REGLAN 10 MG IV (10:31)
[2025-01-13 11:35] LABS: Glucose - Point of Care 263 mg/dl (70-99)
[2025-01-13] MEDS: NOVOLOG FLEXPEN-MODERATE RESISTANCE 5 UNITS SC (11:41)
[2025-01-13] MEDS: NOVOLOG FLEXPEN 25 UNITS SC (11:41)
[2025-01-13 13:01] VITALS: BP 124/62
--- NOTE | 2025-01-13 14:01 | PTCARENOTE ---
Report called to [facility] where the pt will be transferred to. While giving report, I had asked the nurse if she would like me to keep the TPN running or to stop, and she said to keep it running. Report called @ [phone].
--- NOTE | 2025-01-13 16:08 | W.DCSUMMARY ---
Documented by User: Malika Acevedo MD, Resident 01/13/25 16:26
Discharge Summary
Discharge Data
Date of Admission: 12/31/24
Date of Discharge: 01/13/25
-
Pending Results: No
Hospital Course
Discharging Physician : Dr. Malika Acevedo, Dr. Shan Cowart
Disposition : Acute Care Hospital
Primary care physician : Joanna Bal
Principal Discharge diagnosis :
Abdominal wall cellulitis secondary to G-tube dislodgment
Primary tonsillar SCC, Post-radiation stomatitis/pharyngitis
Chronic Discharge diagnosis :
Chronic HFrEF
Dilated Cardiomyopathy
Diabetes Mellitus, Type II with Diabetic Neuropathy
Essential Hypertension
Depression
Anxiety
Hospital Course :
74 y/o female with pmhx of type II diabetes mellitus , HFrEF, Essential Hypertension, Depression/Anxiety, and tonsillar squamous cell carcinoma currently undergoing chemotherapy and radiation who presented to the ED on 12/31/2024 with redness and
leaking around her G-Tube.
On 12/27/2024 she began to develop abdominal pain and was no longer tolerating tube feeds, her feeds were coming back out through the opening in her skin. This was accompanied by increased pain and redness around the G-Tube site.
She was evaluated by Surgery in the ED they attempted placement of a G-tube to keep the tract open, but this was not successful. She was admitted to the hospital for further management.
She denied new G-tube placement. Her wound culture was positive for Klebsiella oxytoca, Strep mitis/oralis, Rhina albicans. She was started on IV antibiotics and underwent surgical exploration/debridement of wound area. Soft diet as tolerated,
She could not tolerate oral intake much because of dysphagia. Continued TPN until adequate oral intake.
Plan to transition to [facility] to Dr. Weber who is aware of the patient and would like to bring her over in order to continue radiation therapy.
Important imaging findings :
There is a focus of subcutaneous gas with adjacent cutaneous thickening and fat stranding which may represent a superficial infectious process and is likely related to reported gastrostomy tube.
Prior cholecystectomy.
Colonic diverticulosis without evidence of acute diverticulitis.
Procedure findings : Localized incision and drainage incorporating prior opening, drainage of purulence.
Discharge Plan
-
Patient Disposition: Acute Care Hospital
Condition: Fair
Discharge Orders:
Discharge Patient (As Directed); Ordered 01/13/25
Ordered By: Malika Acevedo
Discharge Date and Time
Discharge Date/Time: 01/13/25 15:19
Print Language: RWANDAN

Documented by User: Shan Cowart DO 01/14/25 07:35
Discharge Summary
Discharge Data
Date of Admission: 12/31/24
Date of Discharge: 01/13/25
Total time spent discharging patient (in min): 33
Discharge Plan
-
Patient Disposition: Acute Care Hospital
Condition: Fair
Discharge Orders:
Discharge Patient (As Directed); Ordered 01/13/25
Ordered By: Malika Acevedo
Discharge Date and Time
Discharge Date/Time: 01/13/25 15:19
Print Language: RWANDAN
== END 2025-01-13 15:19 | disposition short-term general hospital (02) | DRG 356 ==
LOC: 4 WEST ACU 19:52
PROVIDERS: Hospitalist; Physician Assistant Medical; Registered Nurse; ADMITTING PHYSICIAN Internal Medicine; ATTENDING PHYSICIAN Internal Medicine; CONSULT PHYSICIAN Internal Medicine Infectious Disease; CONSULT PHYSICIAN Surgery; EMERGENCY PHYSICIAN Emergency Medicine; FAMILY PHYSICIAN Family Medicine; OTHER PHYSICIAN Internal Medicine Hematology & Oncology; OTHER PHYSICIAN Psychiatry & Neurology Psychiatry
PROC: 3E0436Z Introduction of Nutritional Substance into Central Vein, Percutaneous Approach (ICD-10-PCS; 2025-01-02)
PROC: 0W9F0ZZ Drainage of Abdominal Wall, Open Approach (ICD-10-PCS; 2025-01-03)
DX: K94.22 Gastrostomy infection (principal); D61.810 Antineoplastic chemotherapy induced pancytopenia; F33.9 Major depressive disorder, recurrent, unspecified; I50.22 Chronic systolic (congestive) heart failure; L03.311 Cellulitis of abdominal wall; Z68.41 Body mass index [BMI] 40.0-44.9, adult; I47.20 Ventricular tachycardia, unspecified; I42.0 Dilated cardiomyopathy; L02.211 Cutaneous abscess of abdominal wall; E46 Unspecified protein-calorie malnutrition; K94.23 Gastrostomy malfunction; E11.40 Type 2 diabetes mellitus with diabetic neuropathy, unspecified; E78.00 Pure hypercholesterolemia, unspecified; C09.9 Malignant neoplasm of tonsil, unspecified; E87.6 Hypokalemia; M54.9 Dorsalgia, unspecified; E66.01 Morbid (severe) obesity due to excess calories; R13.10 Dysphagia, unspecified; L89.301 Pressure ulcer of unspecified buttock, stage 1; M19.90 Unspecified osteoarthritis, unspecified site; K57.30 Diverticulosis of large intestine without perforation or abscess without bleeding; B96.1 Klebsiella pneumoniae [K. pneumoniae] as the cause of diseases classified elsewhere; E83.42 Hypomagnesemia; G89.29 Other chronic pain; T45.1X5A Adverse effect of antineoplastic and immunosuppressive drugs, initial encounter; I11.0 Hypertensive heart disease with heart failure; F41.9 Anxiety disorder, unspecified; R11.2 Nausea with vomiting, unspecified; E87.5 Hyperkalemia; Y83.1 Surgical operation with implant of artificial internal device as the cause of abnormal reaction of the patient, or of later complication, without mention of misadventure at the time of the procedure; Y92.9 Unspecified place or not applicable; Y73.2 Prosthetic and other implants, materials and accessory gastroenterology and urology devices associated with adverse incidents; Z96.643 Presence of artificial hip joint, bilateral; Z96.653 Presence of artificial knee joint, bilateral; Z90.49 Acquired absence of other specified parts of digestive tract; Z79.4 Long term (current) use of insulin; Z79.84 Long term (current) use of oral hypoglycemic drugs; Z79.891 Long term (current) use of opiate analgesic; Z90.710 Acquired absence of both cervix and uterus; Z92.21 Personal history of antineoplastic chemotherapy; Z92.3 Personal history of irradiation; Z90.5 Acquired absence of kidney; Z88.3 Allergy status to other anti-infective agents; Z88.2 Allergy status to sulfonamides; Z88.8 Allergy status to other drugs, medicaments and biological substances; Z91.048 Other nonmedicinal substance allergy status; Z79.82 Long term (current) use of aspirin; Z85.528 Personal history of other malignant neoplasm of kidney
CPT/HCPCS: 74022; 74177; 80048; 80053; 81003; 81015; 82947; 82962; 83735; 84100; 84134; 84478; 85025; 85027; 87040; 87045; 87046; 87070; 87071; 87077; 87086; 87147; 87186; 87205; 87324; 87427; 87449; 92526; 92610; 93005; 96361; 96365; 96366; 96367; 96375; 97116; 97162; 97530; 99285; J2997; Q9967

== ENCOUNTER → 2025-02-11 10:00 | Outpatient (REF) | payer OTHER, MEDICARE, SELFPAY ==
[2025-02-11 10:49] LABS: Hematocrit 33.0 % (37.0-47.0); Hemoglobin 11.0 g/dL (12.0-16.0); Mean Corp Hgb Conc. 33.3 g/dL (33.0-37.0); Mean Corpuscular Volume 104.1 fL (81.0-99.0); Platelet Count 172 10^3/uL (130-400); Red Cell Dist. Width 15.2 % (11.5-14.5)
[2025-02-11 11:04] LABS: ALT (SGPT) 32 U/L (0-35); AST (SGOT) 33 U/L (14-36); Albumin 3.4 g/dl (3.5-5.0); Alkaline Phosphatase 84 U/L (38-126); Blood Urea Nitrogen 7 mg/dl (7-17); Calcium 8.6 mg/dl (8.4-10.2); Carbon Dioxide 31 mmol/L (22-30); Chloride 103 mmol/L (98-107); Glucose 187 mg/dl (70-99); HDL Cholesterol 37 mg/dl; LDL Cholesterol, Calculated 31 mg/dl; Potassium 3.9 mmol/L (3.5-5.1); Sodium 138 mmol/L (135-145); Total Protein 5.7 g/dl (6.3-8.2); Very Low Density Lipoprotein 40 mg/dl (0-30); eGFR > 60.00
== END ==
LOC: OLABN 10:00
PROVIDERS: ATTENDING PHYSICIAN Student in an Organized Health Care Education/Training Program
DX: E78.5 Hyperlipidemia, unspecified (principal); E08.65 Diabetes mellitus due to underlying condition with hyperglycemia
CPT/HCPCS: 36415; 80053; 80061; 85027

== ENCOUNTER → 2025-02-27 11:10 | Outpatient (REF) | payer MEDICARE, OTHER, SELFPAY ==
[2025-02-27 12:10] LABS: Hematocrit 40.3 % (37.0-47.0); Hemoglobin 13.4 g/dL (12.0-16.0); Mean Corp Hgb Conc. 33.3 g/dL (33.0-37.0); Mean Corpuscular Volume 101.5 fL (81.0-99.0); Nucleated Red Blood Cells % 0 %; Platelet Count 256 10^3/uL (130-400); Red Cell Dist. Width 13.9 % (11.5-14.5)
[2025-02-27 12:41] LABS: ALT (SGPT) 23 U/L (0-35); AST (SGOT) 42 U/L (14-36); Albumin 4.0 g/dl (3.5-5.0); Alkaline Phosphatase 93 U/L (38-126); Blood Urea Nitrogen 14 mg/dl (7-17); Calcium 9.3 mg/dl (8.4-10.2); Carbon Dioxide 25 mmol/L (22-30); Chloride 100 mmol/L (98-107); Glucose 117 mg/dl (70-99); HDL Cholesterol 43 mg/dl; LDL Cholesterol, Calculated 44 mg/dl; Potassium 3.4 mmol/L (3.5-5.1); Sodium 136 mmol/L (135-145); Total Protein 6.8 g/dl (6.3-8.2); Very Low Density Lipoprotein 33 mg/dl (0-30); eGFR > 60.00
[2025-02-27 13:18] LABS: TSH 0.57 uIU/ml (0.47-4.68)
[2025-02-27 13:38] LABS: Glycohemoglobin (HgbA1c) 6.5 % (4.0-5.9)
== END ==
LOC: REG 11:10
PROVIDERS: ATTENDING PHYSICIAN Physician Assistant; FAMILY PHYSICIAN Family Medicine; REFERRING PHYSICIAN Urology
DX: E11.65 Type 2 diabetes mellitus with hyperglycemia (principal); Z85.528 Personal history of other malignant neoplasm of kidney
CPT/HCPCS: 36415; 80053; 80061; 83036; 84443; 85025

== ENCOUNTER → 2025-03-13 10:49 | Outpatient (REF) | payer MEDICARE, OTHER, SELFPAY | LOC: RAD 10:49 | PROVIDERS: ATTENDING PHYSICIAN Urology; FAMILY PHYSICIAN Family Medicine | DX: Z85.528 Personal history of other malignant neoplasm of kidney (principal) | CPT/HCPCS: 71046; 76775 ==

== ENCOUNTER → 2025-03-21 09:19 | Outpatient (REF) | payer MEDICARE, OTHER, SELFPAY | LOC: RAD 09:19 | PROVIDERS: ATTENDING PHYSICIAN Internal Medicine Hematology & Oncology; FAMILY PHYSICIAN Family Medicine | DX: C09.0 Malignant neoplasm of tonsillar fossa (principal) | CPT/HCPCS: 70460; 70491; Q9967 ==